=== PATIENT | female | born 1960 | race Caucasian/White ===

== ENCOUNTER 2016-10-21 11:57 | Emergency (ER) | payer OTHER, MEDICARE ==
[~2016-10-21] VITALS: Ht 160 cm; Wt 113.4 kg
[~2016-10-21 11:57] MED LIST: ATORVASTATIN CA40 MG PO; BUPROPION HYDR300 M1 PO; COLACE100 MG PO; COUMADIN 5 MG TA5 MG PO; DEPAKOTE ER500 MG PO; DIVALPROEX SOD500 MG PO; EXFORGE 10 MG-31 TAB PO; EXFORGE HCT 101 TA2 PO; GLIMEPIRIDE4 MG PO; JANUVIA 100MG100 MG PO; K-DUR 20MEQ TA20 MEQ PO; LEVOTHROID0.075 MG PO; MASON NATURAL325 MG PO; MOBIC15 MG PO; NATURAL IRON65 MG PO; PERCOCET 325 MG1 TA2 PO; PERCOCET MONOGRA5 MG PO; POTASSIUM CHLO20 ME3 PO; RANITIDINE HYD300 MG PO; TRAZODONE HCL100 MG PO; TYLENOL #31 TAB PO; TYLENOL500 MG PO; VICODIN5-300 PO; WELLBUTRIN 100100 MG PO; ZOFRAN ODT4 MG SL
--- NOTE | 2016-10-21 12:39 | ED UPPER/LOWER EXTREMITY COMPL ---
History of Present Illness General Chief Complaint: Foot or Ankle Injury Stated Complaint: R FT INJURY Source: patient Exam Limitations: no limitations Vital Signs & Intake/Output Vital Signs & Intake/Output Vital Signs Date Time Temp Pulse Resp B/P B/P Pulse O2 O2 Flow FiO2 Mean Ox Delivery Rate 10/21 1420 98.3 89 18 132/60 96 Room Air 10/21 1203 98.2 97 15 145/84 97 Room Air Room Air Allergies Coded Allergies: Penicillins (Severe, RASH 10/21/16) STATINS (Intermediate, HIVES 10/21/16) TUTU Inhibitors (Intermediate, DRY COUGH 10/21/16) Reconcile Medications AMLODIPINE/VALSARTAN/HCTHIAZID (Exforge Hct 10-320-25 MG Tab) 1 TAB TAB 1 TAB PO DAILY BP (Reported) Atorvastatin Calcium (Lipitor) 40 MG TABLET 40 MG PO DAILY CHOLESTEROL ( Reported) Bupropion Hydrochloride (Bupropion Hydrochloride XL) 300 MG T24 300 MG PO QPM MENTAL HEALTH (Reported) Divalproex Sodium (Depakote ER) [address] 3 TAB PO QPM MENTAL HEALTH ( Reported) Docusate Sodium (Colace) 100 MG SGL 1 CAP PO BID PRN CONSTIPATION Ferrous Sulfate 325 MG TAB 1 TAB PO DAILY SUPLEMENT (Reported) Glimepiride 4 MG TABLET 4 MG PO DAILY BLOOD SUGAR (Reported) Levothyroxine Sodium (Levothroid) 75 MCG TABLET 75 MCG PO DAILY HYPOTHYROIDISM (Reported) OXYCODONE HCL/ACETAMINOPHEN (Percocet 5-325 MG Tablet) 325 MG/5 MG TAB 1-2 TAB PO Q4-6 PRN PRN PAIN Potassium Chloride 20 MEQ PACKET 1 PAC PO QDAY LOW POTASSIUM RANITIDINE HCL (Ranitidine Hydrochloride) 300 MG TABLET 300 MG PO QPM ACID REFLUX (Reported) Sitagliptin Phosphate (Januvia) 100 MG TABLET 100 MG PO DAILY DIABETES ( Reported) TRAZODONE HCL (Trazodone HCl) 100 MG TABLET 200 MG PO QPM SLEEP/MENTAL HEALTH (Reported) Tylenol With Codeine (Tylenol With Codeine #3 Tablet) 300 MG-30 MG TABLET 1 TAB PO BIDP PRN PAIN Warfarin Sodium (Coumadin) 5 MG TAB 1 TAB PO DAILY BLOOD THINNER DOSE FOR INR 2-3 Triage Note: PT TO ED FOR R FOOT PAIN S/P TWISTING IT ON SATURDAY AND HAS NOT HAD ANY IMPROVEMENT TO PAIN. +CMS, PER PT, CANNOT BEAR WEIGHT. Triage Nurses Notes Reviewed? yes Onset: Abrupt Duration: constant Timing: recent history Severity: severe Severity Numbers: 7 HPI: Patient is a 56-year-old female who presents emergency with concerns of twisting her right foot on Saturday 5 days ago and since patient has been complaining of swelling tenderness and pain upon weightbearing activities. Denies any ankle or knee pain. Patient was able to ambulate to a private vehicle to present to emergency room. (MACRINA GARSIA) Past History Travel History Traveled to [place] past 21 day No Medical History Any Pertinent Medical History? 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 No (MACRINA GARSIA) Review of Systems Review of Systems Constitutional: Reports: no symptoms. EENTM: Reports: no symptoms. Respiratory: Reports: no symptoms. Cardiovascular: Reports: no symptoms. Gastrointestinal/Abdominal: Reports: no symptoms. Genitourinary: Reports: no symptoms. Musculoskeletal: Reports: see HPI, joint pain. Skin: Reports: no symptoms. Neurological/Psychological: Reports: no symptoms. Hematologic/Endocrine: Reports: no symptoms. Immunological: Reports: no symptoms. All Other Systems: Reviewed and Negative (MACRINA GARSIA) Physical Exam Physical Exam General Appearance: no apparent distress, alert, comfortable Neurologic/Tendon: normal sensation, normal motor functions, normal tendon functions, responds to pain, no evidence tendon injury, no pulse deficit Skin: intact, normal color, warm/dry Comments: Well-developed well-nourished no apparent distress. HEENT: Atraumatic, extraocular motion intact Neck: Supple, no lymphadenopathy Back: Nontender Respiratory: No respiratory distress Extremities: Right knee normal section nontender full active range of motion Right ankle normal section nontender full active range of motion Right foot noted dorsal generalized point tenderness and swelling. Dermatomes intact pedal pulses +2 Neuro: Alert and oriented x3 Psych: Mood affect normal, normal memory normal judgment. (MACRIAN GARSIA) Progress Differential Diagnosis: arterial insufficiency, compartment syndrome, contusion, dislocation, DVT, fracture, gout, septic arthritis, sprain, tendon injury Plan of Care: Orders Procedure Date/time Status Durable Medical Equipment 10/21 1906 Active Patient does have point tenderness upon the dorsal aspect of patient's right foot in which there is a concern of an avulsion fracture to the foot in which patient was placed in an orthopedic boot Patient was noted to ambulate in the emergency room with a walker noted to have normal steady gait Patient does have an position at her home a walker which I strongly advised patient to begin using and follow up with orthopedic doctor tomorrow. (MACRINA GARSIA) Diagnostic Imaging: Viewed by Me: Radiology Read. Radiology Impression: SEE COMMENTS Comments: PATIENT: JARRED PATEL PRESENT AGE: 56 PATIENT ACCOUNT NO: [id number] : 58 LOCATION: [facility] ORDERING PHYSICIAN: MACRINA DESAI SERVICE DATE: 10/21/16 EXAM TYPE: RAD - XRY-ANKLE 3 OR MORE VIEWS R; XRY-FOOT COMPLETE, R EXAMINATION: XR RIGHT FOOT XR RIGHT ANKLE CLINICAL INFORMATION: Right foot pain. COMPARISON: None TECHNIQUE: 3 views of the right ankle and 3 views of the right foot were obtained. FINDINGS: On the lateral projection of the foot, there is bony prominence along the dorsal aspect of the proximal metatarsals, which may represent hypertrophic change versus a subtle avulsion fracture. Soft tissue swelling about the forefoot. No other findings concerning for fracture or dislocation. The ankle mortise is congruent. No widening of the tibiofibular syndesmosis. Slight distal Achilles enthesopathy. Minimal plantar calcaneal spurring. Chronic hypertrophic changes along the base of the fifth metatarsal. Small os navicularis. Bipartite tibial sesamoid adjacent to the first metatarsal head. Mild degenerative changes at the first MTP joint. IMPRESSION: 1. Hypertrophic changes versus subtle avulsion fracture along the dorsal aspect of the midfoot at the level of the proximal metatarsals, seen only on one view. There is forefoot soft tissue swelling. 2. No other findings concerning for acute fracture in the ankle or foot. 3. Nonacute findings as described above. DICTATED BY: FREDRICK CHRISTINE MD DATE/TIME DICTATED:10/21/16 1408 (MACRINA GARSIA) Departure Departure Disposition: HOME OR SELF CARE Condition: Stable Clinical Impression Primary Impression: Right foot pain Secondary Impressions: Foot fracture, right Referrals: BLAKE LI,MARC Thurston (PCP/Family) IRA BOB MD Additional Instructions: As discussed begin to elevate foot for swelling. Begin to use the walking boot for support and stability. Begin using your already in possession walker for weightbearing as tolerated. If symptoms worsen return to emergency room. Tomorrow please follow up and establish orthopedic Dmitri Valverde MD for further evaluation treatment. Begin the prescription Tylenol with Codeine for pain. Prescription is waiting a [facility] [place] Departure Forms: Customer Survey General Discharge Information Prescriptions: Current Visit Scripts Tylenol With Codeine (Tylenol With Codeine #3 Tablet) 1 TAB PO BIDP PRN PAIN #10 TAB (MACRINA GARSIA) PA/FOREST FIRE FIGHTER Co-Sign Statement Statement: ED Attending supervision documentation- I saw and evaluated the patient. I have also reviewed all the pertinent lab results and diagnostic results. I agree with the findings and the plan of care as documented in the PA's/FOREST FIRE FIGHTER's documentation. x I have reviewed the ED Record and agree with the PA's/FOREST FIRE FIGHTER's documentation. [] Additions or exceptions (if any) to the PAs/FOREST FIRE FIGHTER's note and plan are summarized below: [] (CARLENE IL,NANCY)
[2016-10-21 14:20] VITALS: BP 132/60
--- NOTE | 2016-10-21 14:31 | RADIOLOGY REPORT ---
EXAMINATION: XR RIGHT FOOT XR RIGHT ANKLE CLINICAL INFORMATION: Right foot pain. COMPARISON: None TECHNIQUE: 3 views of the right ankle and 3 views of the right foot were obtained. FINDINGS: On the lateral projection of the foot, there is bony prominence along the dorsal aspect of the proximal metatarsals, which may represent hypertrophic change versus a subtle avulsion fracture. Soft tissue swelling about the forefoot. No other findings concerning for fracture or dislocation. The ankle mortise is congruent. No widening of the tibiofibular syndesmosis. Slight distal Achilles enthesopathy. Minimal plantar calcaneal spurring. Chronic hypertrophic changes along the base of the fifth metatarsal. Small os navicularis. Bipartite tibial sesamoid adjacent to the first metatarsal head. Mild degenerative changes at the first MTP joint. IMPRESSION: 1. Hypertrophic changes versus subtle avulsion fracture along the dorsal aspect of the midfoot at the level of the proximal metatarsals, seen only on one view. There is forefoot soft tissue swelling. 2. No other findings concerning for acute fracture in the ankle or foot. 3. Nonacute findings as described above.
[2016-10-21] MEDS ORDERED: TYLENOL WITH C1 EACH PO (15:21)
== END 2016-10-21 15:41 ==
LOC: ERH 11:57
DX: S92.311A Displaced fracture of first metatarsal bone, right foot, initial encounter for closed fracture (principal); X58.XXXA Exposure to other specified factors, initial encounter; Y92.9 Unspecified place or not applicable; Y93.9 Activity, unspecified
CPT/HCPCS: 73610-RT; 73630-RT

== ENCOUNTER 2017-09-17 19:01 | Emergency (ER) | payer OTHER, MEDICARE ==
[~2017-09-17 19:01] MED LIST changes: +ANTI-ITCH28 GM TOP; +CIPRO500 M1 PO; +HYDROXYZINE HCL25 M2 PO; +PREDNISONE20 M1 PO; +TRAZODONE HCL100 M1 PO; +TRAZODONE HCL50 M1 PO; +TYLENOL EXTRA500 M2 PO; +TYLENOL WITH C1 EACH PO
--- NOTE | 2017-09-17 19:51 | ED GI/GU/ABDOMINAL COMPLAINT ---
History of Present Illness General Chief Complaint: Female Urogenital Problems Stated Complaint: ?UTI Source: patient Exam Limitations: no limitations Vital Signs & Intake/Output Vital Signs & Intake/Output Vital Signs Date Time Temp Pulse Resp B/P B/P Pulse O2 O2 Flow FiO2 Mean Ox Delivery Rate 09/18 2015 98.1 95 16 138/90 100 Room Air 09/17 1910 98.4 100 20 123/82 98 Allergies Coded Allergies: Penicillins (Severe, RASH 10/21/16) STATINS (Intermediate, HIVES 10/21/16) metformin (VAGINAL ITCHING 02/16/17) TUTU Inhibitors (Intermediate, DRY COUGH 10/21/16) Reconcile Medications Acetaminophen (Tylenol Extra Strength) 500 MG TABLET 2 TAB PO BID PRN PAIN ( Reported) Fluconazole (Diflucan) 150 MG TABLET 1 TAB PO ONCE yeast ifnection take in 3 days Hydrocortisone (Anti-Itch) 1 % CREAM..G. 1 RUDDY TOP BID itchy rash Hydroxyzine Hydrochloride (Atarax) 50 MG TAB 1 TAB PO TID ITCHING Hydroxyzine Hydrochloride (Atarax) 25 MG TAB 1-2 TAB PO TID PRN itchy rash Nitrofurantoin Monohyd/M-Cryst (Macrobid 100 MG Capsule) 100 MG CAPSULE 1 CAP PO BID uti with food Phenazopyridine HCl (Pyridium) 100 MG TABLET 1 TAB PO TID burnings Prednisone 20 MG TABLET 1 TAB PO BID eczema Trazodone HCl 50 MG TABLET 1 TAB PO QPM INSOMNIA Trazodone HCl 100 MG TABLET 1 TAB PO QPM PRN insomnia Triage Note: PER PT WHITE THICK CHEESY VAGINAL DISCHARGE. PT MADE DR HARE FOR SATURDAY BUT CANT WAIT Triage Nurses Notes Reviewed? yes ? N Is pt currently ? No Onset: Abrupt Duration: day(s):, constant Timing: recent history No Modifying Factors: none HPI: 49-year-old female comes into the emergency room for further evaluation of vaginal itching and some increased frequency and burning with urination. Symptoms when going over the past couple days. She has a previous yeast infections she thinks. Not sexually active. Denies any abdominal pain and fever. (Delfino Mc) Past History Travel History Traveled to [place] past 21 day No Medical History Any Pertinent Medical History? 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 No (Delfino Mc) Review of Systems Review of Systems Constitutional: Reports: no symptoms. EENTM: Reports: no symptoms. Respiratory: Reports: no symptoms. Cardiovascular: Reports: no symptoms. GI: Reports: no symptoms. Genitourinary: Reports: see HPI. Musculoskeletal: Reports: no symptoms. Skin: Reports: no symptoms. Neurological/Psychological: Reports: no symptoms. Hematologic/Endocrine: Reports: no symptoms. Immunologic/Allergic: Reports: no symptoms. All Other Systems: Reviewed and Negative (Delfino Mc) Physical Exam Physical Exam General Appearance: well developed/nourished, alert, awake, obese Head: atraumatic, normal appearance Eyes: Bilateral: normal appearance. Ears, Nose, Throat, Mouth: hearing grossly normal, moist mucous membrane Neck: normal inspection Respiratory: no respiratory distress Gastrointestinal: soft, non-tender Back: normal inspection Extremities: normal range of motion Neurologic/Psych: awake, alert, oriented x 3, normal gait Skin: intact, normal color Core Measures ACS in differential dx? No Sepsis Present: No Sepsis Focused Exam Completed? No (Delfino Mc) Progress Differential Diagnosis: UTI/pyelo, YEAST INFECTION Plan of Care: Orders Procedure Date/time Status Add-on Test (ER Only) 09/17 1952 Active CULTURE,URINE 09/18 1919 Active URINALYSIS 09/17 1908 Complete Laboratory Tests 09/17/171919: Urinalysis LIGHT H, Urine Color YEL, Urine Clarity HAZY H, Urine pH 5.5, Ur Specific [place] 1.010, Urine Protein TRACE H, Urine Ketones NEG, Urine Nitrite NEG, Urine Bilirubin NEG, Urine Urobilinogen 0.2, Ur Leukocyte Esterase SMALL H , Ur Microscopic SEDIMENT EXAMINED, Urine RBC 3-5, Urine WBC 10-15 H, Ur Epithelial Cells MANY H, Urine Bacteria MOD H, Urine Mucus FEW, Micro UA Comment BUDDING YEAST H, Urine Hemoglobin MOD H, Urine Glucose >=1000 H Microbiology 09/18 1919 URINE ROUT: Urine Culture - RECD Initial ED EKG: none Comments: 09/17/2017 8:06:11 PM Patient clinically looks well. Patient is no apparent distress. Patient is nontoxic appearing. Symptoms are likely most consistent with these infection versus UTI. Patient treated with fluconazole and started on oral antibiotic. 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 Return if further concerns. She clinically looks well. (Zev DESAI,Delfino) Departure Departure Disposition: HOME OR SELF CARE Condition: Stable Clinical Impression Primary Impression: UTI (urinary tract infection) Secondary Impressions: Yeast infection Referrals: Mohsen LI,Idalia Thurston (PCP/Family) Additional Instructions: Take Macrobid and fluconazole prescribed. Follow-up with wire rope fabrication supervisor and primary care doctor. Return if any other concerns worsening symptoms. Please go over all results of today's visit with your primary care doctor. Contact your primary care doctor to let them know you were here in the emergency room. There may be nonspecific findings which may not be related to your visit today here in the emergency room but may require further evaluation and chronic monitoring by your primary care doctor. If you had a laceration today the chance of foreign body always remains. You should follow-up with your primary care doctor for recheck in 3-5 days for a wound check. If you had an x-ray done there is a chance that a fracture could have been missed on initial read and you should follow-up with your primary care doctor for repeat x-rays if symptoms persist. If your blood pressure was elevated here in the emergency room please have rechecked by [facility] primary care doctor within the next 48. If you were prescribed a narcotic here in the emergency room or any type of controlled substances you're not allowed to drive while taking this medication or operate any type of heavy machinery. Narcotics can make you feel lightheaded dizziness nausea and can cause constipation. You may need to brick picker a stool softener. Thank you for choosing [facility] emergency room. Please return to the emergency room immediately if you have any other concerns worsening of symptoms. Departure Forms: Customer Survey General Discharge Information Prescriptions: Current Visit Scripts Fluconazole (Diflucan) 1 TAB PO ONCE #1 TAB take in 3 days Nitrofurantoin Monohyd/M-Cryst (Macrobid 100 MG Capsule) 1 CAP PO BID #14 CAP with food Phenazopyridine HCl (Pyridium) 1 TAB PO TID #6 TAB Hydroxyzine Hydrochloride (Atarax) 1 TAB PO TID #30 TAB (Delfino Mc) PA/WIRE RIGGER Co-Sign Statement Statement: ED Attending supervision documentation- I saw and evaluated the patient. I have also reviewed all the pertinent lab results and diagnostic results. I agree with the findings and the plan of care as documented in the PA's/WIRE RIGGER's documentation. x I have reviewed the ED Record and agree with the PA's/WIRE RIGGER's documentation. [] Additions or exceptions (if any) to the PAs/WIRE RIGGER's note and plan are summarized below: [] (Thomas LI,Andre)
[2017-09-17] MEDS ORDERED: HYDROXYZINE HCL50 M1 PO (19:53)
[2017-09-17] MEDS ORDERED: DIFLUCAN150 M1 PO (19:53)
[2017-09-17] MEDS ORDERED: PYRIDIUM100 M1 PO (19:53)
[2017-09-17] MEDS ORDERED: MACROBID 100 M100 MG PO (19:53)
[2017-09-17 20:16] VITALS: BP 138/90
[2017-10-01] MEDS ORDERED: GLIMEPIRIDE2 MG PO (12:39)
[2017-10-01] MEDS ORDERED: GLUCOPHAGE XR500 M1 PO (12:39)
[2017-10-01] MEDS ORDERED: PIOGLITAZONE HC30 M1 PO (12:39)
[2017-10-01] MEDS ORDERED: JANUVIA100 M1 PO (12:39)
[2017-12-22] MEDS ORDERED: LEVSIN-SL0.125 MG SL (02:21)
[2017-12-22] MEDS ORDERED: ZOFRAN ODT4 M1 SL (02:21)
== END 2017-09-17 20:16 ==
LOC: ERH 19:01
DX: N39.0 Urinary tract infection, site not specified (principal); B37.9 Candidiasis, unspecified
CPT/HCPCS: 81001; 87086

== ENCOUNTER 2017-09-22 12:16 | Inpatient (IN) | payer OTHER, MEDICARE ==
[~2017-09-22] VITALS: Ht 160 cm; Wt 113.9 kg
[~2017-09-22 12:16] MED LIST changes: +DIFLUCAN150 M1 PO; +HYDROXYZINE HCL50 M1 PO; +MACROBID 100 M100 MG PO; +PYRIDIUM100 M1 PO
--- NOTE | 2017-09-22 13:22 | ED AMS/SEIZURE/WEAK/DIZZY ---
History of Present Illness General Chief Complaint: Altered Mental Status Stated Complaint: BIBA WITH AMS Source: patient, old records, EMS Exam Limitations: no limitations Vital Signs & Intake/Output Vital Signs & Intake/Output Vital Signs Date Time Temp Pulse Resp B/P B/P Pulse O2 O2 Flow FiO2 Mean Ox Delivery Rate 09/25 1419 98.2 105 17 143/74 97 Room Air 09/25 0554 98.1 94 20 148/78 94 09/24 2214 99.0 100 18 146/78 95 Room Air ED Intake and Output 09/25 0000 09/24 1200 Intake Total 2200 370 Output Total Balance 2200 370 Intake, IV 250 Intake, Oral 2200 120 Patient 251 lb Weight Allergies Coded Allergies: Penicillins (Severe, RASH 10/21/16) STATINS (Intermediate, HIVES 10/21/16) metformin (VAGINAL ITCHING 02/16/17) TUTU Inhibitors (Intermediate, DRY COUGH 10/21/16) Triage Note: PT BACILIO FROM [facility] C/C ?AMS PER FRIENDS. PT STATES SHE HAS BEEN OFF HER DAILY MEDS (PSYCH AND DM) X APPROX 1 MONTH. REPORTS RESTARTED MEDICATION WITHIN THE LAST FEW DAYS. FSG GLUCOSE >500 ON ARRIVAL. PT AOX3. ABLE TO REPORT WEIGHT OBTAINED AND PCP ON SATURDAY. Triage Nurses Notes Reviewed? yes Onset: Gradual Duration: hour(s): Timing: recent history Injury Environment: [facility] Severity: moderate HPI: 57YO female with hx of DM, HTN, bipolar disorder BACILIO from [facility] for confusion. Patient states that she felt confused and other people were worried about her "personality" and they called for an ambulance. Patient reports elevated blood sugar today, >500. She normally does not check her blood sugar. Patient states that she was out of her blood pressure and psychiatric medications for about one month, she states she could not afford her medication. Patient just restarted these medications about one week ago. Patient reports history of recent UTI and yeast infection for which she was treated for. She denies abdominal pain, nausea , vomiting, chest pain, dyspnea, (Petty DESAI,Chloe Quintero) Reconcile Medications Acetaminophen (Tylenol Extra Strength) 500 MG TABLET 2 TAB PO BID PRN PAIN ( Reported) Divalproex Sodium (Depakote ER) 500 MG TAB.ER.24H 3 TAB PO QPM ??Seizure ( Reported) Hydrocortisone (Anti-Itch) 1 % CREAM..G. 1 RUDDY TOP BID itchy rash Hydroxyzine Hydrochloride (Atarax) 50 MG TAB 1 TAB PO TID ITCHING Levothyroxine Sodium 75 MCG TABLET 1 TAB PO DAILY HypoTSH (Reported) Nitrofurantoin Monohyd/M-Cryst (Macrobid 100 MG Capsule) 100 MG CAPSULE 1 CAP PO BID uti with food Phenazopyridine HCl (Pyridium) 100 MG TABLET 1 TAB PO TID burnings Pioglitazone HCl 30 MG TABLET 1 TAB PO DAILY DM (Reported) Trazodone HCl 100 MG TABLET 2 TAB PO QPM PRN insomnia (Thomas LI,Andre) Past History Travel History Traveled to [place] past 21 day No Medical History Any Pertinent Medical History? 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 No (Chloe Boo) Review of Systems Review of Systems Constitutional: Reports: see HPI. EENTM: Reports: no symptoms. Respiratory: Reports: no symptoms. Cardiovascular: Reports: no symptoms. GI: Reports: no symptoms. Genitourinary: Reports: no symptoms. Musculoskeletal: Reports: no symptoms. Skin: Reports: no symptoms. Neurological/Psychological: Reports: see HPI. Hematologic/Endocrine: Reports: see HPI. Immunologic/Allergic: Reports: no symptoms. All Other Systems: Reviewed and Negative (Chloe Boo) Physical Exam Physical Exam General Appearance: well developed/nourished, no apparent distress, alert, awake , obese Head: atraumatic, normal appearance Eyes: Bilateral: normal appearance, PERRL, EOMI. 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 No CVA/TIA Diagnosis No Sepsis Present: No Sepsis Focused Exam Completed? No (Petty DESAI,Chloe Quintero) Progress Differential Diagnosis: arrythmia, alcohol intoxication, benign positional vertigo, CVA/stroke, dehydration, electrolyte imbalance, intracranial mass/tumor , sepsis, UTI/pyelo Plan of Care: Orders Procedure Date/time Status EKG 09/25 599 Active Therapeutic Exercise 09/25 UNK Complete Gait Training 09/25 UNK Complete Current Medications Sig/Domo Start time Last Medication Dose Stop Time Status Admin Metformin HCl 500 MG 1700 09/25 1700 AC 09/25 (Glucophage) 1647 Insulin Detemir 18 UNITS BID 09/25 09 AC (Levemir) Sitagliptin Phosphate 100 MG DAILY 09/25 0900 AC 09/25 (JANUVIA) 0800 Divalproex Sodium 1,250 MG QPM 09/24 2100 AC 09/24 (Depakote ER) 2056 Hydrocortisone 1 RUDDY BID 09/23 0900 AC 09/25 0801 Hydroxyzine HCl 50 MG TID 09/23 0900 AC 09/25 (Atarax) 1303 Insulin Aspart 0 TIDAC/HS 09/23 0800 AC 09/25 (NovoLOG) 1647 Levothyroxine Sodium 0.075 MG DAILY AC 09/23 0700 AC 09/25 (Synthroid) 0505 Trazodone HCl 200 MG QPM PRN 09/23 0630 AC (Desyrel) Vitamin A/Vitamin D 1 RUDDY BID 09/22 2315 AC 09/25 (A+D Original) 0801 Trimethobenzamide HCl 200 MG 4 TIMES/DAY PRN 09/22 2230 AC (Tigan) Heparin Sodium 5,000 UNIT Q8 09/22 2200 AC 09/25 (Porcine) 1303 Acetaminophen 325 MG Q6 PRN 09/22 2014 AC 09/24 (Tylenol) 1523 Laboratory Tests 09/25/17 0630: Anion Gap 11, Estimated GFR > 60, BUN/Creatinine Ratio 11.4, Valproic Acid 77.3 Patient hyperglycemic, IV fluids and 10 units IV insulin initiated. Blood Work shows elevated lactic acid 2.4. Patient currently on third liter IV fluids. Will obtain head CT scan given patient's bizarre affect, she does not appear delirious, alert and oriented 3 however does have affect, possibly related to her blood sugar versus bipolar history. Repeat finger stick shows persistent hyperglycemia, second dose 10 units insulin given. Blood sugar is improving however repeat lactic acid shows increasing lactic acidosis. These findings were discussed with Dr. Guzman, patient requires admission given increasing lactic acid in setting of hyperglycemia. Spoke with Dr. Alexis - he agrees with plan for admission. He states patient will likely require insulin regiment. He recommends repeat labs at this time. general medicine admission reasonable given patient's vital signs. Spoke with Dr. Goncalves regarding general medicine admission. Diagnostic Imaging: Viewed by Me: CT Scan. Discussed w/RAD: CT Scan. Radiology Impression: PATIENT: JARRED PATEL PRESENT AGE: 57 PATIENT ACCOUNT NO: [id number] : 58 LOCATION: [facility] ORDERING PHYSICIAN: Chloe DESAI SERVICE DATE: 09/22/179222 EXAM TYPE: CAT - CT HEAD WO IV CONTRAST EXAMINATION: CT HEAD WITHOUT CONTRAST CLINICAL INFORMATION: Acute mental status changes. Rule out intracranial hemorrhage. COMPARISON: CT scan of the head dated 02/16/2017. TECHNIQUE: Contiguous axial imaging was performed from the skull base to vertex without intravenous administration of contrast. DLP: 615.62 mGy-cm FINDINGS: There is no evidence of acute intracranial hemorrhage or territorial infarction. No abnormal mass effect or midline shift is seen. Pierre to white matter differentiation is well preserved. No extra-axial fluid collections are identified. The ventricles are normal in size. There is no abnormal attenuation within the brain parenchyma. The osseous structures and soft tissues are normal. The mastoid air cells and visualized portions of the paranasal sinuses are well aerated. IMPRESSION: No acute intracranial pathology. DICTATED BY: Donita Anne MD DATE/TIME DICTATED:09/22/171723 LONG TERM CARE ADMINISTRATOR:SANTOSH DATE/TIME TRANSCRIBED:1723 CONFIDENTIAL, DO NOT COPY WITHOUT APPROPRIATE AUTHORIZATION. < Electronically signed in Other Vendor System> SIGNED BY: Donita Anne MD 09/22/17 5279 Initial ED EKG: SINUS RHYTHM @92BPM, NONSPECIFIC ST CHANGES Prior EKG: unchanged (03/03/16) (Chloe Boo) Departure Departure Disposition: STILL A PATIENT Condition: Stable Clinical Impression Primary Impression: Hyperglycemia Secondary Impressions: Confusion, Lactic acidosis Referrals: Mohsen LI,Idalia Thurston (PCP/Family) Departure Forms: Customer Survey General Discharge Information Admission Note Spoke With: Rody Mari MD Documentation of Exam: Documentation of any treatments & extenuating circumstances including Concerns Regarding Discharge (functional status, medication knowledge or non-compliance, living conditions, etc.) that warrant an admission rather than observation: [ Hypoglycemia, lactic acidosis, confusion, requiring IV fluids, IV insulin, endocrinology consult, repeat labs, premature discharge medically unsafe] (Chloe Boo) PA/DELIVERY ROUTE DRIVER Co-Sign Statement Statement: ED Attending supervision documentation- [x] I saw and evaluated the patient. I have also reviewed all the pertinent lab results and diagnostic results. I agree with the findings and the plan of care as documented in the PA's/DELIVERY ROUTE DRIVER's documentation. 09/22/17, 20:05.... pt with glucose in 600's, requiring insulin, iv fluids, worsening lactic acidosis, presently patient is comfortable, stable. [] I have reviewed the ED Record and agree with the PA's/DELIVERY ROUTE DRIVER's documentation. [] Additions or exceptions (if any) to the PAs/DELIVERY ROUTE DRIVER's note and plan are summarized below: [] (Lauren LI,Jatin Goodrich) Departure Prescriptions: Current Visit Scripts Trazodone HCl 2 TAB PO QPM PRN insomnia #30 TAB PA/DELIVERY ROUTE DRIVER Co-Sign Statement Statement: ED Attending supervision documentation- x I saw and evaluated the patient. I have also reviewed all the pertinent lab results and diagnostic results. I agree with the findings and the plan of care as documented in the PA's/DELIVERY ROUTE DRIVER's documentation. Hyperglycemia, confusion, lactic acidosis [] I have reviewed the ED Record and agree with the PA's/DELIVERY ROUTE DRIVER's documentation. [] Additions or exceptions (if any) to the PAs/DELIVERY ROUTE DRIVER's note and plan are summarized below: [] (Thomas LI,Andre) Critical Care Note Critical Care Note Critical Care Time: 30-74 min (Chloe Boo) (Jatin Aguilar MD) Critical Care Note Critical Care Note Critical Care Time: 30-74 min (Chloe Boo)
[2017-09-22 13:50] LABS: ABSOLUTE BASOPHIL COUNT 0 /CUMM (0.0-0.2); ABSOLUTE EOSINOPHIL COUNT 0.2 /CUMM (0.0-0.7); ABSOLUTE GRANULOCYTE CT 4.1 /CUMM (1.4-6.5); ABSOLUTE LYMPH COUNT 0.7 /CUMM (1.2-3.4); ABSOLUTE MONOCYTE COUNT 0.6 /CUMM (0.10-0.60); BASOPHIL % 0.5 % (0.0-2.0); EOSINOPHIL % 3.2 % (0-5); GRANULOCYTE % 73.8 % (42.2-75.2); HEMATOCRIT 42.8 % (37-47); MEAN CORPUSCULAR HGB 28.4 PG (27.0-31.0); MEAN CORPUSCULAR HGB CONC 32.9 G/DL (33.0-37.0); MEAN CORPUSCULAR VOLUME 86.5 FL (81.0-99.0); MEAN PLATELET VOLUME 10.3 FL (7.4-10.4); PLATELET COUNT 183 /CUMM (130-400); RBC DISTRIBUTION WIDTH 15.2 % (11.5-14.5); RED BLOOD CELL CT 4.95 /CUMM (4.20-5.40); WHITE BLOOD CELL COUNT 5.5 /CUMM (4.8-10.8)
--- NOTE | 2017-09-22 17:33 | CT SCAN REPORT ---
EXAMINATION: CT HEAD WITHOUT CONTRAST CLINICAL INFORMATION: Acute mental status changes. Rule out intracranial hemorrhage. COMPARISON: CT scan of the head dated 02/16/2017. TECHNIQUE: Contiguous axial imaging was performed from the skull base to vertex without intravenous administration of contrast. DLP: 615.62 mGy-cm FINDINGS: There is no evidence of acute intracranial hemorrhage or territorial infarction. No abnormal mass effect or midline shift is seen. Pierre to white matter differentiation is well preserved. No extra-axial fluid collections are identified. The ventricles are normal in size. There is no abnormal attenuation within the brain parenchyma. The osseous structures and soft tissues are normal. The mastoid air cells and visualized portions of the paranasal sinuses are well aerated. IMPRESSION: No acute intracranial pathology.
--- NOTE | 2017-09-22 20:14 | History & Physical ---
Ana Sutton Andrey Shamir 09/22/172007: General Information and HPI MD Statement: I have seen and personally examined JARRED PATEL and documented this H&P. The patient is a 57 year old F who presented with a patient stated chief complaint of [AMS]. Source of Information: patient, old records Exam Limitations: confusion History of Present Illness: Ms. Patel is a 57yo F w. PMH of DM, HTN, bipolar disorder, who was [facility] that she was not herself. Patient stated that she was confused and people surrounding her were worried so they called for ambulance. During our clinical action ER, patient appeared to be in mild distress and does not want to talk much about medical history or what happened today. SHe only endorsed that she was out of all her meds for a while. Son was contacted over the phone and said patient went out of all meds for about 2 months and recently got back to taking meds, including Pioglitazone 30mg daily. Patient was at baseline ambulating with a cane, and mostly independent on ADLs and IADLs. Patient sometimes could not make to the commode to pee and may pee on floor, that recently son found that the floor became increasingly sticky to clean after patient's urinary incontinence. Son stated patient became increasingly "not herself" and "hard to talk to" in the last week after restarting all her meds. Son denied any recent sick contact/fever/chest pain/ abdominal pain/nausea/vomiting/constipation. Patient's diabetes is managed by her PCP Idalia Connolly who the patient regularly follows up with. No previous episodes of DKA. Patient has bipolar disorder for which she follows up with care and is maintained on Depakote. Allergies/Medications Allergies: Coded Allergies: Penicillins (Severe, RASH 10/21/16) STATINS (Intermediate, HIVES 10/21/16) metformin (VAGINAL ITCHING 02/16/17) TUTU Inhibitors (Intermediate, DRY COUGH 10/21/16) Home Med list Acetaminophen (Tylenol Extra Strength) 500 MG TABLET 2 TAB PO BID PRN PAIN ( Reported) Divalproex Sodium (Depakote ER) 500 MG TAB.ER.24H 3 TAB PO QPM ??Seizure ( Reported) Hydrocortisone (Anti-Itch) 1 % CREAM..G. 1 RUDDY TOP BID itchy rash Hydroxyzine Hydrochloride (Atarax) 50 MG TAB 1 TAB PO TID ITCHING Levothyroxine Sodium 75 MCG TABLET 1 TAB PO DAILY HypoTSH (Reported) Nitrofurantoin Monohyd/M-Cryst (Macrobid 100 MG Capsule) 100 MG CAPSULE 1 CAP PO BID uti with food Phenazopyridine HCl (Pyridium) 100 MG TABLET 1 TAB PO TID burnings Pioglitazone HCl 30 MG TABLET 1 TAB PO DAILY DM (Reported) Trazodone HCl 100 MG TABLET 2 TAB PO QPM PRN insomnia Past History Travel History Traveled to [place] past 21 day No Medical History Neurological: NONE EENT: NONE Cardiovascular: hypertension Respiratory: NONE Gastrointestinal: NONE Hepatic: NONE Renal: NONE Musculoskeletal: osteoarthritis Psychiatric: bipolar disease Endocrine: NIDDM Blood Disorders: NONE Cancer(s): NONE ACUTE DIALYSIS NURSE/Reproductive: NONE History of MRSA: No History of VRE: No History of CDIFF: No Surgical History Surgical History: KNEE REPLACEMENT Past Family/Social History Psychosocial History Services at Home: None Smoking Status: Never Smoked ETOH Use: occasional use Illicit Drug Use: denies illicit drug use Functional Ability ADLs Independent: dressing, eating, toileting, bathing. Ambulation: cane IADLs Independent: shopping, housework, finances, food prep, telephone, transportation , medication admin. Review of Systems Review of Systems Constitutional: Reports: see HPI. Exam & Diagnostic Data Last 24 Hrs of Vital Signs/I&O Vital Signs Date Time Temp Pulse Resp B/P B/P Pulse O2 O2 Flow FiO2 Mean Ox Delivery Rate 09/22 1930 95.8 96 18 151/65 97 Room Air 09/22 1729 95.7 88 18 126/58 100 Room Air 09/22 1441 97.8 100 18 140/67 98 05/06 1220 96.4 103 18 139/63 99 Room Air Intake & Output 09/22 1600 /06 0800 05/06 0000 Intake Total 1000 Output Total Balance 1000 Intake, IV 1000 Patient 110.677 kg Weight Weight Reported by Patient Measurement Method Physical Exam General Appearance Alert, Cooperative, Mild Distress, sad from needle sticks, confused, answers questions with significant delay HEENT Atraumatic, PERRLA, multiple small areas of redness over the mandaen Neck Supple Cardiovascular Regular Rate, Normal S1, Normal S2 Lungs diminished breath sounds bilaterally due to body weight Abdomen Normal Bowel Sounds, distended Extremities Normal Pulses, trace edema, surger scar on right knee. Multiple areas of redness/excoriations Reproductive (FEMALE) Curdy white foul smelling discharge with rash/redness in the groins. Suprapubic tenderness Last 24 Hrs of Labs/Raul: Laboratory Tests 09/22/17 1725: Lactic Acid 4.1 H 09/22/17 1516: Urine Opiates Screen < 100, Methadone Screen 49, Barbiturate Screen < 60, Ur Phencyclidine Scrn < 6.00, Amphetamines Screen < 100, U Benzodiazepines Scrn < 85, Urine Cocaine Screen < 50, Urine Cannabis Screen < 5.00, Urinalysis LIGHT H , Urine Color YEL, Urine Clarity CLEAR, Urine pH 6.0, Ur Specific Rochert 1.010, Urine Protein NEG, Urine Ketones TRACE H, Urine Nitrite POS H, Urine Bilirubin NEG, Urine Urobilinogen 0.2, Ur Leukocyte Esterase NEG, Ur Microscopic SEDIMENT EXAMINED, Urine RBC 1-3, Urine WBC 3-5 H, Ur Epithelial Cells FEW, Urine Bacteria FEW H, Urine Hemoglobin NEG, Urine Glucose >=1000 H 09/22/17 1455: pH 7.47 H, pCO2 39, pO2 81, HCO3 28, ABG O2 Sat (Measured) 95.0 L, Carboxyhemoglobin 1.2 L, O2 Concentration % RA, O2 Delivery Method RA, Phlebotomy Draw Site RIGHT RADIAL 09/22/17 1328: Lactic Acid 2.4 H 09/22/17 1328: Anion Gap 20 H, Estimated GFR 39 L, BUN/Creatinine Ratio 15.0, Glucose 661 *H, Calcium 9.9, Magnesium 1.7, Total Bilirubin 0.8, AST 18, ALT 29, Alkaline Phosphatase 95, Troponin I < 0.01, Total Protein 7.5, Albumin 4.3, Globulin 3.2, Albumin/Globulin Ratio 1.3, CBC w Diff NO MAN DIFF REQ, RBC 4.95, MCV 86.5, MCH 28.4, MCHC 32.9 L, RDW 15.2 H, MPV 10.3, Gran % 73.8, Lymphocytes % 12.5 L, Monocytes % 10.0 H, Eosinophils % 3.2, Basophils % 0.5, Absolute Granulocytes 4.1, Absolute Lymphocytes 0.7 L, Absolute Monocytes 0.6, Absolute Eosinophils 0.2, Absolute Basophils 0, Serum Alcohol < 10.0, Acetone Level POSITIVE : UNDILUTED Microbiology 09/22 1936 BLOOD: Blood Culture - ORD 09/22 1936 BLOOD: Blood Culture - ORD Diagnostic Data EKG Results QT elongation aroudn 490s Assessment/Plan Assessment: -CBC: Unremarkable -BMP: NA 132 corrected to 145, creatinine 1.4 elevated from baseline of 0.8, glucose above 600, Anion gap 20 -UA/Microbiology: Trace amount of WBC, positive for nitrite, U tox positive for acetone -Misc: Blood gas 7.4 7/49/81/28, slightly alkalosis -Head CT: No acute -EKG: NSR w/o significant ST-T abnormalities. -Interventions in ER: Novolin 10 units 2, IV normal saline 1 L bolus 3 Problem list & Assessment: Patient presented with severe sepsis secondary to atrial flutter/infection, with elevated anion gap possibly due to lactic acidosis. Patient's hyperglycemia is likely due to medication noncompliance, have been going on for days, however no signs of ketoacidosis was found based on the lab. Her HHS has resulted in systemic reactions including pseudohyponatremia, FAM, and possible sequential hyperkalemia after repletion of fluids/insulin. Likely vaginal candidiasis following physical examination. #Severe sepsis (hypothermia, tachycardia, lactic acidosis, FAM, urinary infection) #Hyperglycemia likely HHS secondary to medication noncompliance/infection #Pseudohyponatremia secondary to HHS #Lactic acidosis #Hypokalemia #Vaginal candidiasis #FAM secondary to dehydration/HHS #PMH of hypertension, hypothyroidism, diabetes, bipolar disorder, mixed hyperlipidemia Hospital Course: - Admit to general medicine floor consult over the phone. limbs in the ER. Continue normal saline and KCl 1 25 cc/hour DVT prophylaxis Heparin + ALPS Diabetic diet Full Code As Ranked By This Provider Problem List: 1. Hyperglycemia Core Measures/Misc (02/03) Acute Coronary Syndrome ACS Diagnosis: No Congestive Heart Failure Congestive Heart Failure Diagnosis No Cerebrovascular Accident CVA/TIA Diagnosis: No VTE (View Protocol) VTE Risk Factors Age>40 No Mechanical VTE Prophylaxis d/t N/A MechProphylax Ordered No VTE Pharm Prophylaxis d/t NA PharmProphylax ordered Sepsis (View protocol) Sepsis Present: No August Lamas 09/22/17 4247: Resident Review Statement Resident Statement: examined this patient, discussed with management intern Other Findings: Patient is a 49-year-old female with past medical history of type 2 diabetes mellitus, hyperlipidemia, hypothyroidism, obesity, GERD, bipolar disorder who was brought into the ED by EMS for altered mental status from the [facility]. Patient is confused during the interview. Most of the history is obtained from the son over the phone. Son reports that over the past 1-2 months, patient has been very confused, below her baseline, appeared tired and lethargic. It has been very difficult for him to strike a meaningful conversation with her due to her altered mentation. Her apetite has been low and PO intake fluids/solids has been poor. She had been out of all her medications including OHA for the past 2 months due to monetary problems . She just got her medications a few days back. She reports to be taking Januvia, pioglitazone and glipizide for diabetes. She had been complaining of vaginal itching with increased frequency and burning in urination over the past 1 month. She had multiple accidents at home and a urine was very thick and appeared very sticky and difficult to clean. She denied any fevers, chills, shortness of breath, palpitations, nausea, abdominal pain. Does report some loose stools over the past 2 weeks. She was seen in the ER on 09/17 for the same complaints and was discharged on nitrofurantoin, fluconazole, pyridium and hydroxyzine. Son reports that patient had been taking some these medications for the last 4 days. Patient's diabetes is managed by her PCP Idalia Connolly who the patient regularly follows up with. No previous episodes of DKA. Patient has bipolar disorder for which she follows up with care and is maintained on Depakote. Vitals at admission was significant for temperature of 96.4, pulse 103, respiration 18, blood pressure 139/63, saturating 99% on room air. Labs normal white count, sodium 132(corrected 145) , potassium 3.9, bicarbonate 28, anion gap 20, BUN 21, creatinine 1.4(baseline 0.8), glucose 661, serum osmolarity 331, troponin 0.01, triglycerides 840, cholesterol 314, TSH 0.7, free T4 2 0.31 U tox positive for acetone UA nitrate positive, leukocyte esterase negative, trace ketones 3-5 WBCs, glucose>1000 EKG: NSR, Q waves in inferior leads, QTC 490. ABG 7.47/39/81/28 Physical exam General: Awake, alert, confused, answers questions with significant delay HEENT: PERRLA, EOMI, multiple small areas of redness over the mandaen, scant hair Chest: Diminished breath sounds bilaterally CVS: S1 and S2 heard, no murmurs Abdomen: Distended, BS positive Vaginal:Curdy white foul smelling discharge with rash/redness in the groins. Suprapubic tenderness Extremities: Trace pedal edema, a surgery scar on right knee. Multiple areas of redness/excoriations, denuded skin on the extremities. Assessment Severe sepsis(hypothermia, tachycardia, lactic acidosis, FAM, urinary infection) Hyperglycemia likely HHS in the setting of medication noncompliance, infection Pseudohyponatremia in the setting of hyperglycemia Lactic acidosis Hypokalemia Vaginal candidiasis FAM likely prerenal in the setting of dehydration Diabetes mellitus type 2 Bipolar disorder Mixed hyperlipidemia Hypothyroidism Plan * Admit patient to [facility] * Every 2 hours Accu-Cheks * Patient received 3 L of normal saline and 20 units of insulin in the ED. We' ll start patient on normal saline and KCl at 1 25 cc an hour. * Levemir 10 units twice a day * NovoLog mealtime and bedtime sliding scale as per endocrinology recommendations * Lactic acid normalized. AG closed * Obtain blood cultures/urine cultures * Patient has been on Bactrim. Will give 1 dose of Fluconazole * Repeat labs in a.m. * Endocrine consult appreciated * History of bipolar disorder. Psychiatry consult appreciated * Diabetic diet(use Tigan if nauseous, QTC 490) * Due to prophylaxis subcutaneous heparin * Full code [email or web address] 09/23/17 0058: Attending MD Review Statement Attending Statement Attending MD Statement: examined this patient, discuss w/resident/PA/COUNTY LIBRARY DIRECTOR, agreed w/resident/PA/COUNTY LIBRARY DIRECTOR, reviewed EMR data (avail), reviewed images, amended to note Attending Assessment/Plan: CC: Confusion PMH: Hypothyroidism, DM, obesity, mood disorder Patient was brought in ER from [facility] for confusion and altered mental status. Initially in ER patient was not providing appropriate information but when I saw her she mentioned that she went to [facility] this morning and she was not walking right, she was not talking appropriate and her friends noticed that there is something wrong and they called EMS. Patient states that she was feeling poorly and lethargic but cannot pinpoint exact symptoms. On probing questions she endorses urinary frequency, burning and pain while urination and vaginal discharge since last 1 week. She denies any fever or chills at home, recent falls or syncopal episodes. Any neurological weakness, chest pain, abdominal pain, diarrhea, nausea or vomiting. According to her she has been noncompliant with her medications because of financial trouble, she cannot afford co-pay and she skips medications for a month or 2 in between and then take medication again for a month. Recently she did not take medications for last 2 months and was restarted approximately a week back. She states that she takes pioglitazone, glipizide, Januvia for diabetes. She also follows up with behavioral health and takes Depakote and trazodone. Her urinary symptoms started approximately a week back for which she was seen in ER and was prescribed medications. She states that she took a few of these medications but could not complete it as she did not feel good with them. She was getting more confused. History is confirmed from patient's son who mentioned that patient has been confused since last 1 week, talking inappropriately, urinary incontinence and foul-smelling urine. Patient's son lives with her, currently from her . Patient had seen information officer Dr. Chen in the remote past, was never on insulin. Vitals: Temperature 96.4, pulse 103, RR 18, blood pressure 139/63, saturating 99 % on room air. On exam: A O 3, cooperative, no acute distress, neck supple, JVD normal, no lymphadenopathy, mucosa dry, complete neurological examination unremarkable, cranial nerves intact, no dependent edema, multiple skin lesions/scabs on right hand and forehead uninfected CVS: S1-S2, RRR, parasternal systolic murmur 2/6, not radiating to carotid. RS: Clear to auscultate bilaterally. Abdomen: Soft, obese, NT except mild suprapubic tenderness, ND, bowel sounds present, curdy white vaginal discharge inflamed vulva, mild excoriation in inguinal folds without superadded fungal infection. CT head: No acute intracranial pathology. Assessment and plan 57-year-old female with past medical history significant for diabetes and mood disorder noncompliant with that medication presented in ER from [facility] through EMS for confusion and altered mental status. Her blood glucose was more than 500 on fingersticks in ambulance and on BMP it was found to be 661. She appears extremely dehydrated even after 3 L normal saline bolus n in ER. According to ER information patient was confused but currently patient is alert, oriented 3 and provides all the information. She appears to have UTI and vaginal candidiasis probably secondary to uncontrolled diabetes. Patient has been noncompliant with her medications since last 1-2 months, probably blood sugars were running high according to her. She was supposed to be on pioglitazone, Januvia, glipizide which was recently restarted approximately a week back. She was also seen recently in ER on September 17 and was prescribed nitrofurantoin for 7 days and 3 dose of fluconazole. According to her she was not feeling well with this medications so she stopped it. This patient appears to have partially treated UTI. Patient may be having mild HHS given her high blood sugar level, confusion, acetone and urine, dehydration. Urine osmolality was checked was 331. [employer] Worker was called who agreed for general admission. Patient also has pseudohyponatremia and should be carefully watched to avoid acute changes in sodium. Additionally patient has lactic acid of 2.4 on arrival which increased to 4.1 even with hydration, her temperature was 96.4 and had tachycardia although this appears secondary to sepsis secondary to UTI. + HHS + uncontrolled DM : noncompliance + UTI : cystitis + Vaginal Candidiasis + Acute kidney injury + Pseudohyponatremia + History of mood disorder and hypothyroidism - admit to general medicine - Continue aggressive hydration with normal saline at 200 mL/h - Continue Levemir 10 units twice daily according to information officer - Continue short-acting sliding scale insulin according to the recommendation - Watch for hypoglycemia, every 2 hourly Accu-Cheks as patient is insulin elvin - Also closely watch sodium for any acute changes - Check HbA1c, a.m. cortisol, TSH - One dose of vaginal fluconazole 150 mg - Continue Depakote and trazodone and levothyroxine according to her previous doses.
[2017-09-22] MEDS ORDERED: LEVOTHYROXINE75 MCG PO (20:51)
[2017-09-22] MEDS ORDERED: DEPAKOTE ER500 M1 PO (20:55)
[2017-09-22] MEDS ORDERED: PIOGLITAZONE HC30 M1 PO (20:56)
[2017-09-22] MEDS ORDERED: TRAZODONE HCL100 M1 PO (20:58)
[2017-09-22 21:25] LABS: ABSOLUTE BASOPHIL COUNT 0 /CUMM (0.0-0.2); ABSOLUTE EOSINOPHIL COUNT 0.2 /CUMM (0.0-0.7); ABSOLUTE GRANULOCYTE CT 3.2 /CUMM (1.4-6.5); ABSOLUTE LYMPH COUNT 1.1 /CUMM (1.2-3.4); ABSOLUTE MONOCYTE COUNT 0.6 /CUMM (0.10-0.60); BASOPHIL % 0.4 % (0.0-2.0); EOSINOPHIL % 4.3 % (0-5); GRANULOCYTE % 61.8 % (42.2-75.2); MEAN CORPUSCULAR HGB 28.4 PG (27.0-31.0); MEAN CORPUSCULAR HGB CONC 33.1 G/DL (33.0-37.0); MEAN CORPUSCULAR VOLUME 85.8 FL (81.0-99.0); MEAN PLATELET VOLUME 10.2 FL (7.4-10.4); PLATELET COUNT 169 /CUMM (130-400); RBC DISTRIBUTION WIDTH 14.9 % (11.5-14.5); RED BLOOD CELL CT 4.11 /CUMM (4.20-5.40); WHITE BLOOD CELL COUNT 5.1 /CUMM (4.8-10.8)
[2017-09-22 21:36] LABS: HEMATOCRIT 35.2 % (37-47)
[2017-09-22 22:20] VITALS: BP 158/60
--- NOTE | 2017-09-23 01:02 | Admission Certification ---
Admission Certification Certification Statement - As attending physician, I certify that at the time of - admission, based on clinical presentation, severity of - symptoms, need for further diagnostic testing and - therapeutic interventions, and risk of adverse outcomes - without in-hospital treatment, in my clinical assessment, - this patient requires an acute hospital stay for a minimum - of two nights or longer. I have also considered psychsocial - factors such as support system, advanced age, financial - issues, cognitive issues, and failed out-patient treatments, - past re-admission history, safety of patient, and lack of - compliance as applicable. Specific rationale supporting this admission is: hyperglycemia, suspected HHS, FAM,
[2017-09-23 05:48] VITALS: BP 118/78
--- NOTE | 2017-09-23 07:37 | Cons- Endocrinology ---
General Information and HPI Consulting Request Date of Consult: 09/23/17 Requested By: MEDICAL TEAM Reason for Consult: Uncontrolled diabetes Source of Information: patient, old records Exam Limitations: no limitations History of Present Illness: This 57-year-old woman with a known history of diabetes mellitus type 2 associated with obesity, hypothyroidism, and bipolar disorder was brought in by ambulance from [facility] because she was not acting right. Apparently the people around her noted that she was confused and not herself. In speaking with the patient this morning she did have a lot of increased thirst and urination. She has been off all her medications for about at least a month. Her sugar when she presented to the emergency room was 661 with a creatinine of 1.4 BUN 21 sodium 132 bicarb 28 acetone positive undiluted. The patient has been treated overnight with normal saline and was placed on insulin. Her blood sugars have been gradually coming down. Her fingerstick blood sugar this morning is 358. The patient feels much improved this morning. She has been eating and is not vomiting. Allergies/Medications Allergies: Coded Allergies: Penicillins (Severe, RASH 10/21/16) STATINS (Intermediate, HIVES 10/21/16) metformin (VAGINAL ITCHING 02/16/17) TUTU Inhibitors (Intermediate, DRY COUGH 10/21/16) Home Med List: Acetaminophen (Tylenol Extra Strength) 500 MG TABLET 2 TAB PO BID PRN PAIN ( Reported) Divalproex Sodium (Depakote ER) 500 MG TAB.ER.24H 3 TAB PO QPM ??Seizure ( Reported) Hydrocortisone (Anti-Itch) 1 % CREAM..G. 1 RUDDY TOP BID itchy rash Hydroxyzine Hydrochloride (Atarax) 50 MG TAB 1 TAB PO TID ITCHING Levothyroxine Sodium 75 MCG TABLET 1 TAB PO DAILY HypoTSH (Reported) Nitrofurantoin Monohyd/M-Cryst (Macrobid 100 MG Capsule) 100 MG CAPSULE 1 CAP PO BID uti with food Phenazopyridine HCl (Pyridium) 100 MG TABLET 1 TAB PO TID burnings Pioglitazone HCl 30 MG TABLET 1 TAB PO DAILY DM (Reported) Trazodone HCl 100 MG TABLET 2 TAB PO QPM PRN insomnia Review of Systems Review of Systems Constitutional: Denies: chills, fever. Cardiovascular: Denies: chest pain. Respiratory: Denies: cough, short of breath. GI: Denies: abdominal pain, nausea, vomiting. Skin: Reports: no symptoms. Past History Travel History Traveled to [place] past 21 day No Medical History Neurological: NONE EENT: NONE Cardiovascular: hypertension Respiratory: NONE Gastrointestinal: NONE Hepatic: NONE Renal: NONE Musculoskeletal: osteoarthritis Psychiatric: bipolar disease Endocrine: NIDDM Blood Disorders: NONE Cancer(s): NONE ROOF FITTER/Reproductive: NONE Surgical History Surgical History: KNEE REPLACEMENT Psychosocial History Services at Home: None Smoking Status: Never Smoked ETOH Use: occasional use Illicit Drug Use: denies illicit drug use Functional Ability ADLs Independent: dressing, eating, toileting, bathing. Ambulation: cane IADLs Independent: shopping, housework, finances, food prep, telephone, transportation , medication admin. Exam & Diagnostic Data Last 24 Hrs of Vital Signs/I&O Vital Signs Date Time Temp Pulse Resp B/P B/P Pulse O2 O2 Flow FiO2 Mean Ox Delivery Rate 09/23 0448 98.1 96 20 118/78 94 Room Air 05/ 2220 98.3 99 18 158/60 98 Room Air 05/ 2200 98.8 100 18 135/60 99 Room Air 05/ 1930 95.8 96 18 151/65 97 Room Air 05/ 1729 95.7 88 18 126/58 100 Room Air 05/ 1441 97.8 100 18 140/67 98 05/06 1220 96.4 103 18 139/63 99 Room Air Intake & Output 05/07 0800 05/07 0000 05/06 1600 Intake Total 1000 1000 Output Total 700 300 Balance 300 -300 1000 Intake, IV 1000 1000 Output, Urine 700 300 Patient 251 lb 244 lb Weight Weight Bed scale Reported by Patient Measurement Method Vital Signs Date Time Temp Pulse Resp B/P B/P Pulse O2 O2 Flow FiO2 Mean Ox Delivery Rate 09/23 0448 98.1 96 20 118/78 94 Room Air 05/ 2220 98.3 99 18 158/60 98 Room Air 05/06 2200 98.8 100 18 135/60 99 Room Air 05/06 1930 95.8 96 18 151/65 97 Room Air 05/ 1729 95.7 88 18 126/58 100 Room Air 05/06 1441 97.8 100 18 140/67 98 05/06 1220 96.4 103 18 139/63 99 Room Air Intake & Output 05/07 0800 05/07 0000 05/06 1600 Intake Total 1000 1000 Output Total 700 300 Balance 300 -300 1000 Intake, IV 1000 1000 Output, Urine 700 300 Patient 251 lb 244 lb Weight Weight Bed scale Reported by Patient Measurement Method Physical Exam General Appearance: alert, awake, comfortable Head: normal appearance Eyes: Bilateral: normal appearance. Neck: normal inspection Respiratory: normal breath sounds Cardiovascular: regular rate/rhythm Gastrointestinal: normal bowel sounds, soft Extremities: normal inspection Skin: intact Labs/Rual Results: Laboratory Tests 09/23 09/22 09/22 0620 2301 2110 Chemistry Sodium (137 - 145 mmol/L) Pending 137 Potassium (3.5 - 5.1 mmol/L) Pending 3.4 L Chloride (98 - 107 mmol/L) Pending 95 L Carbon Dioxide (22 - 30 mmol/L) Pending 28 Anion Gap (5 - 16) Pending 14 BUN (7 - 17 mg/dL) Pending 20 H Creatinine (0.5 - 1.0 mg/dL) Pending 1.1 H Estimated GFR (>60 ml/min) 51 L BUN/Creatinine Ratio (7 - 25 %) Pending 18.2 Glucose (65 - 99 mg/dL) 440 H Hemoglobin A1c (4.2 - 5.8 %) Pending Lactic Acid (0.7 - 2.1 mmol/L) Cancelled 1.3 Calcium (8.4 - 10.2 mg/dL) 9.0 Total Bilirubin (0.2 - 1.3 mg/dL) 0.6 AST (14 - 36 U/L) 17 ALT (9 - 52 U/L) 21 Alkaline Phosphatase (<127 U/L) 75 Total Protein (6.3 - 8.2 g/dL) 6.2 L Albumin (3.5 - 5.0 g/dL) 3.5 Globulin (1.9 - 4.2 gm/dL) 2.7 Albumin/Globulin Ratio (1.1 - 2.2 %) 1.3 Hematology CBC w Diff Pending NO MAN DIFF REQ WBC (4.8 - 10.8 /CUMM) Pending 5.1 RBC (4.20 - 5.40 /CUMM) Pending 4.11 L Hgb (12.0 - 16.0 G/DL) Pending 11.7 L Hct (37 - 47 %) Pending 35.2 L MCV (81.0 - 99.0 FL) Pending 85.8 MCH (27.0 - 31.0 PG) Pending 28.4 MCHC (33.0 - 37.0 G/DL) Pending 33.1 RDW (11.5 - 14.5 %) Pending 14.9 H Plt Count (130 - 400 /CUMM) Pending 169 MPV (7.4 - 10.4 FL) Pending 10.2 Gran % (42.2 - 75.2 %) 61.8 Lymphocytes % (20.5 - 51.1 %) 21.4 Monocytes % (1.7 - 9.3 %) 12.1 H Eosinophils % (0 - 5 %) 4.3 Basophils % (0.0 - 2.0 %) 0.4 Absolute Granulocytes (1.4 - 6.5 /CUMM) 3.2 Absolute Lymphocytes (1.2 - 3.4 /CUMM) 1.1 L Absolute Monocytes (0.10 - 0.60 /CUMM) 0.6 Absolute Eosinophils (0.0 - 0.7 /CUMM) 0.2 Absolute Basophils (0.0 - 0.2 /CUMM) 0 05/06 05/06 1725 1516 Chemistry Lactic Acid (0.7 - 2.1 mmol/L) 4.1 H Toxicology Urine Opiates Screen (>2000 NG/ML) < 100 Methadone Screen (>300 NG/ML) 49 Barbiturate Screen (>200 NG/ML) < 60 Ur Phencyclidine Scrn (>25 NG/ML) < 6.00 Amphetamines Screen (>1000 NG/ML) < 100 U Benzodiazepines Scrn (>200 NG/ML) < 85 Urine Cocaine Screen (>300 NG/ML) < 50 Urine Cannabis Screen (>50 NG/ML) < 5.00 Urines Urinalysis LIGHT H Urine Color (YEL,AMB,STR) YEL Urine Clarity (CLEAR) CLEAR Urine pH (5.0 - 8.0) 6.0 Ur Specific Hagerman (1.001 - 1.035) 1.010 Urine Protein (NEG,<30 MG/DL) NEG Urine Ketones (NEG) TRACE H Urine Nitrite (NEG) POS H Urine Bilirubin (NEG) NEG Urine Urobilinogen (0.1 - 1.0 EU/dl) 0.2 Ur Leukocyte Esterase (NEG) NEG Ur Microscopic SEDIMENT EXAMINED Urine RBC (0 - 5 /HPF) 1-3 Urine WBC (0 - 2 /HPF) 3-5 H Ur Epithelial Cells (NONE,FEW) FEW Urine Bacteria (NEG/NONE) FEW H Urine Hemoglobin (NEG) NEG Urine Glucose (N MG/DL) >=1000 H 09/22 09/22 09/22 1455 1328 1328 Blood Gas pH (7.35 - 7.45 PH) 7.47 H pCO2 (35 - 45 TORR) 39 pO2 (80 - 100 TORR) 81 HCO3 (21 - 28 MEQ/L) 28 ABG O2 Sat (Measured) (>96.0 %) 95.0 L Carboxyhemoglobin (1.5 - 5.0 %) 1.2 L O2 Concentration % RA O2 Delivery Method RA Chemistry Lactic Acid (0.7 - 2.1 mmol/L) 2.4 H LDL Cholesterol Direct Cancelled Miscellaneous Phlebotomy Draw Site RIGHT RADIAL 09/22 1328 Chemistry Sodium (137 - 145 mmol/L) 132 L Potassium (3.5 - 5.1 mmol/L) 3.9 Chloride (98 - 107 mmol/L) 84 L Carbon Dioxide (22 - 30 mmol/L) 28 Anion Gap (5 - 16) 20 H BUN (7 - 17 mg/dL) 21 H Creatinine (0.5 - 1.0 mg/dL) 1.4 H Estimated GFR (>60 ml/min) 39 L BUN/Creatinine Ratio (7 - 25 %) 15.0 Glucose (65 - 99 mg/dL) 661 *H Serum Osmolality (285 - 295 MOSM/KG) 331 H Calcium (8.4 - 10.2 mg/dL) 9.9 Magnesium (1.6 - 2.3 mg/dL) 1.7 Total Bilirubin (0.2 - 1.3 mg/dL) 0.8 AST (14 - 36 U/L) 18 ALT (9 - 52 U/L) 29 Alkaline Phosphatase (<127 U/L) 95 Troponin I (< 0.11 ng/ml) < 0.01 Total Protein (6.3 - 8.2 g/dL) 7.5 Albumin (3.5 - 5.0 g/dL) 4.3 Globulin (1.9 - 4.2 gm/dL) 3.2 Albumin/Globulin Ratio (1.1 - 2.2 %) 1.3 Triglycerides (<150 mg/dL) 840 H Cholesterol (<200 MG/DL) 314 H LDL Cholesterol Direct (<100 mg/dL) 132.43 H LDL Cholesterol, Calc (65 - 129 MG/DL) ND HDL Cholesterol (40 - 60 mg/dL) 48 Cholesterol/HDL Ratio (0.00 - 4.23 %) 7 H TSH (0.270 - 4.200 uIU/mL) 0.745 Free T4 (0.64 - 1.79 ng/dL) 2.31 H Cortisol AM Sample (4.46 - 22.7 ug/dL) 17.5 Hematology CBC w Diff NO MAN DIFF REQ WBC (4.8 - 10.8 /CUMM) 5.5 RBC (4.20 - 5.40 /CUMM) 4.95 Hgb (12.0 - 16.0 G/DL) 14.1 Hct (37 - 47 %) 42.8 MCV (81.0 - 99.0 FL) 86.5 MCH (27.0 - 31.0 PG) 28.4 MCHC (33.0 - 37.0 G/DL) 32.9 L RDW (11.5 - 14.5 %) 15.2 H Plt Count (130 - 400 /CUMM) 183 MPV (7.4 - 10.4 FL) 10.3 Gran % (42.2 - 75.2 %) 73.8 Lymphocytes % (20.5 - 51.1 %) 12.5 L Monocytes % (1.7 - 9.3 %) 10.0 H Eosinophils % (0 - 5 %) 3.2 Basophils % (0.0 - 2.0 %) 0.5 Absolute Granulocytes (1.4 - 6.5 /CUMM) 4.1 Absolute Lymphocytes (1.2 - 3.4 /CUMM) 0.7 L Absolute Monocytes (0.10 - 0.60 /CUMM) 0.6 Absolute Eosinophils (0.0 - 0.7 /CUMM) 0.2 Absolute Basophils (0.0 - 0.2 /CUMM) 0 Toxicology Serum Alcohol (<10 MG/DL) < 10.0 Acetone Level (NEGATIVE) POSITIVE : UNDILUTED Assessment/Plan Assessment/Plan This 57-year-old woman with a known history of diabetes mellitus type 2, bipolar disorder, and hypothyroidism presents with a hyperglycemic hyperosmolar state after stopping her medications at home. She states she stopped the medicine because she could not afford them. The patient is presently on Levemir 10 units twice a day as well as sliding scale NovoLog. She is much improved after hydration and repletion of her sodium and potassium. She had acute kidney injury due to dehydration which is now resolved. Her thyroid tests remained in normal range. Suggest increase the patient's insulin to 15 units of Levemir twice a day. Increase sliding scale NovoLog before meals to be 80-150 give 6 units NovoLog, 151-200 give 8 units NovoLog, 201-250 give 10 units NovoLog, 251-300 give 12 units NovoLog, 301-350 give 14 units NovoLog, 351-400 give 16 units NovoLog. Bedtime sliding scale NovoLog should stay the same. The patient should be seen by psychiatry while in the hospital. She is on Depakote at home which is not ideal in view of her obesity and diabetes. The patient should also be seen by social work to see if she can get extra help with her prescriptions. As an outpatient patient would do better on medications which are associated with weight loss such as GLP-1 analogs and also SGOT 2 drugs. Consult Acknowledgment - Thank you for your consult request.
--- NOTE | 2017-09-23 07:58 | PN- Housestaff ---
See Addendum Brayan LI,Emir 09/23/17 0757: Subjective Follow-up For: Diabetic Hyperosmolar state, secondary to noncompliance to medicine Complaints: LETHARGY Subjective: I followed the patient today. See is resting comfortably in bed, but does appear lethargic, does not have any other active complaints. No nursing issues reported to me overnight. Patient has blood sugar checks every 2 hours currently, but since the patient has started eating this will be changed. Her anion gap has closed. Blood sugar this morning was 421 at 8 AM. IV normal saline with 20 mL daily KCl running at 125 mL per hour. K-3.4 this AM. Review of Systems Constitutional: Reports: see HPI. Objective Last 24 Hrs of Vital Signs/I&O Vital Signs Date Time Temp Pulse Resp B/P B/P Pulse O2 O2 Flow FiO2 Mean Ox Delivery Rate 09/23 1414 98.0 100 18 124/60 96 Room Air 09/23 0548 98.1 96 20 118/78 94 Room Air 09/22 2220 98.3 99 18 158/60 98 Room Air / 2200 98.8 100 18 135/60 99 Room Air / 1930 95.8 96 18 151/65 97 Room Air Intake & Output 09/23 1600 09/23 0800 09/23 0000 Intake Total 1730 1000 Output Total 500 700 300 Balance 1230 300 -300 Intake, IV 1010 1000 Intake, Oral 720 Number 1 Bowel Movements Output, Urine 500 700 300 Patient 113.852 kg Weight Weight Bed scale Measurement Method Physical Exam General Appearance: Oriented X3, Cooperative, No Acute Distress, lethargic Other Physical Findings: HEENT Atraumatic, PERRLA, multiple small areas of redness over the baptism Neck Supple Cardiovascular Regular Rate, Normal S1, Normal S2 Lungs diminished breath sounds bilaterally, NOT in resp distress Abdomen Normal Bowel Sounds, distended, no clinical ascites Extremities Normal Pulses, trace edema, surgery scar on right knee. Multiple areas of redness/excoriations Pelvic exam NOT done Current Medications: Current Medications Sig/Domo Start time Last Medication Dose Route Stop Time Status Admin Acetaminophen 325 MG Q6 PRN 09/22 2014 AC PO Ceftriaxone Sodium 1,000 MG ONCE ONE 09/22 1944 CAN IV 09/22 1945 Divalproex Sodium 1,500 MG QPM 05/07 2100 AC PO Fluconazole 150 MG ONCE ONE 09/22 2315 DC 09/23 PO 09/22 2316 0006 Heparin Sodium 5,000 UNIT Q8 09/22 2200 AC 09/23 (Porcine) SC 1336 Heparin Sodium 0 .STK-MED ONE 09/22 2124 DC (Porcine) .ROUTE Hydrocortisone 1 RUDDY BID 09/23 09 09/23 TOP 0957 Hydroxyzine HCl 50 MG TID 09/23 0900 AC 09/23 PO 1336 Insulin Aspart 0 TIDAC/HS 09/23 0800 AC 09/23 GA 1651 Insulin Aspart 6 UNITS ONCE ONE 09/23 0215 DC 09/23 SC 09/23 0216 0220 Insulin Aspart 4 UNITS ONCE ONE 09/23 0115 DC 09/23 SC 09/23 0116 0120 Insulin Aspart 4 UNITS ONCE ONE 09/22 2215 DC 09/22 SC 09/22 2216 2300 Insulin Detemir 15 UNITS BID 09/23 2100 AC SC Insulin Detemir 5 UNITS ONCE ONE 09/23 1145 DC 09/23 SC 09/23 1146 1158 Insulin Detemir 10 UNITS BID 09/22 2100 NJ 09/23 GA 0805 Levothyroxine Sodium 0.075 MG DAILY AC 09/23 0700 AC 09/23 PO 0535 Potassium Chloride 40 MEQ ONCE ONE 09/23 0930 DC 09/23 PO 09/23 0931 0956 Potassium Chloride 10 MEQ ONCE ONE 09/22 2300 DC / IV 09/22 2301 2320 Potassium Chloride 20 MEQ Q8H 09/22 2230 DC 09/23 Sodium Chloride 1,000 ML IV 1807 Sodium Chloride 1,000 ML ONCE ONE 09/22 2099 DC 09/22 IV 09/23 0159 2115 Trazodone HCl 200 MG QPM PRN 09/23 0630 PO Trimethobenzamide HCl 200 MG 4 TIMES/DAY PRN 09/22 2230 AC IM Vitamin A/Vitamin D 1 RUDDY BID 09/22 231 09/23 TOP 0957 Last 24 Hrs of Lab/Raul Results Last 24 Hrs of Labs/Mics: Laboratory Tests 09/23/17 0620: Anion Gap 13, Estimated GFR 57 L, BUN/Creatinine Ratio 18.0, CBC w Diff NO MAN DIFF REQ, RBC 4.03 L, MCV 87.0, MCH 29.0, MCHC 33.3, RDW 15.3 H, MPV 10.8 H, Gran % 54.3, Lymphocytes % 29.0, Monocytes % 11.2 H, Eosinophils % 4.9, Basophils % 0.6, Absolute Granulocytes 2.6, Absolute Lymphocytes 1.4, Absolute Monocytes 0.5, Absolute Eosinophils 0.2, Absolute Basophils 0 09/22/172300: Lactic Acid Cancelled 09/22/172109: Anion Gap 14, Estimated GFR 51 L, BUN/Creatinine Ratio 18.2, Glucose 440 H, Hemoglobin A1c 9.9 H, Lactic Acid 1.3, Calcium 9.0, Total Bilirubin 0.6, AST 17 , ALT 21, Alkaline Phosphatase 75, Total Protein 6.2 L, Albumin 3.5, Globulin 2.7, Albumin/Globulin Ratio 1.3, CBC w Diff NO MAN DIFF REQ, RBC 4.11 L, MCV 85.8, MCH 28.4, MCHC 33.1, RDW 14.9 H, MPV 10.2, Gran % 61.8, Lymphocytes % 21.4, Monocytes % 12.1 H, Eosinophils % 4.3, Basophils % 0.4, Absolute Granulocytes 3.2, Absolute Lymphocytes 1.1 L, Absolute Monocytes 0.6, Absolute Eosinophils 0.2, Absolute Basophils 0 Microbiology 09/23 2315 BLOOD: Blood Culture - RES 09/22 2314 URINE ROUT: Urine Culture - RECD 09/22 2299 BLOOD: Blood Culture - RES 09/23 2019 BLOOD: Blood Culture - CAN Cancelled: AREROBIC ONLY 09/22 1936 BLOOD: Blood Culture - CAN Cancelled: SPECIMEN ENVER RECEIVED. REORDERED AND DONE 09/23 2315 Assessment/Plan Assessment: 57-year-old obese female with past history of type 2 diabetes mellitus, hyperlipidemia, hypothyroidism, GERD, bipolar disorder, with noncompliance to medication including diabetes pills was brought into the ED for altered mental status from the the medical center. See was found to have hyperosmolar state, not in DKA, and was treated aggressively in the emergency department. She is now in general medical floor for the management of following issues: # Severe sepsis (hypothermia, tachycardia, lactic acidosis, FAM, urinary infection) Patient's clinical condition is slowly improving, and is on IV antibiotic for the UTI, cultures pending. Lactic acidosis has resolved. # Hyperglycemia likely HHS in the setting of medication noncompliance, infection Patient's blood sugar levels are decreasing, her anion gap has closed, the patient has been started on oral diet, endocrinology consulted, following recs. # Pseudohyponatremia in the setting of hyperglycemia # Lactic acidosis, resolved # Hypokalemia, repleted, will check tomorrow # Vaginal candidiasis, on antifungal meds # FAM likely prerenal in the setting of dehydration, IVF continued, will stop after adequate oral intake # Bipolar disorder She takes Valproate which can cause weight gain (>1% to 9%), making management of DM less effective. Will get Psych consult for med recs for replacement. Might need tapering. # Mixed hyperlipidemia Patient is allergic to statins, will ask Endocrine service for recs. Fibrates could be an option. # Hypothyroidism Continue Sunthroid. Diet: Diabetic diet CC1 DVT ppx: SQ Heparin Code status: Full code Problem List: 1. Hyperosmolar syndrome 2. Hyperosmolar hyponatremia 3. Yeast infection 4. Severe sepsis 5. UTI (urinary tract infection) Pain Ratin Pain Location: - Pain Goal: Pain 4 or less Pain Plan: prn Tomorrow's Labs & Rationales: CBC, BEP Tulio Westbrook MD 09/23/171951: Attending MD Review Statement Attending Statement Attending MD Statement: examined this patient, discuss w/resident/PA/BARN OPERATOR, agreed w/resident/PA/BARN OPERATOR, reviewed EMR data (avail), discussed with nursing, discussed with case mgmt, amended to note Attending Assessment/Plan: The patient was seen and discussed with house staff. Agree with the plan of care as outlined. Appreciate Endocrinology follow-up.
[2017-09-23 09:00] LABS: ABSOLUTE BASOPHIL COUNT 0 /CUMM (0.0-0.2); ABSOLUTE EOSINOPHIL COUNT 0.2 /CUMM (0.0-0.7); ABSOLUTE GRANULOCYTE CT 2.6 /CUMM (1.4-6.5); ABSOLUTE LYMPH COUNT 1.4 /CUMM (1.2-3.4); ABSOLUTE MONOCYTE COUNT 0.5 /CUMM (0.10-0.60); BASOPHIL % 0.6 % (0.0-2.0); EOSINOPHIL % 4.9 % (0-5); GRANULOCYTE % 54.3 % (42.2-75.2); HEMATOCRIT 35.1 % (37-47); MEAN CORPUSCULAR HGB CONC 33.3 G/DL (33.0-37.0); MEAN PLATELET VOLUME 10.8 FL (7.4-10.4); PLATELET COUNT 168 /CUMM (130-400); RBC DISTRIBUTION WIDTH 15.3 % (11.5-14.5); RED BLOOD CELL CT 4.03 /CUMM (4.20-5.40); WHITE BLOOD CELL COUNT 4.9 /CUMM (4.8-10.8)
[2017-09-23 14:14] VITALS: BP 124/60
[2017-09-23 21:58] VITALS: BP 146/72
[2017-09-24 06:45] VITALS: BP 128/60
--- NOTE | 2017-09-24 07:42 | PN- Diabetes ---
Assessment/Plan Diabetes Assessment: The patient feels improved. She is eating okay. Her Levemir was increased to 15 units twice a day and she is on sliding scale NovoLog beginning with 6 units for sugar 80-150. Her blood sugars are beginning to come down. Her fasting blood sugar this morning was 242. Plan: Suggest begin Januvia 100 mg daily. Continue the present insulin. The patient states that she does not tolerate metformin because it upset her stomach. I am not sure what dose of metformin she was on before but we may need to try this again in low doses along with her insulin. As an outpatient she would be a candidate for an SGLT2 analog and also a GLP-1 drugs such as Bydureon. Subjective Subjective: Feels okay Review of Systems Constitutional: Denies: chills, fever. Cardiovascular: Denies: chest pain. Respiratory: Denies: short of breath. Gastrointestinal: Denies: abdominal pain, nausea, vomiting. Skin: Reports: no symptoms. Objective Last 24 Hrs of Vital Signs/I&O Vital Signs Date Time Temp Pulse Resp B/P B/P Pulse O2 O2 Flow FiO2 Mean Ox Delivery Rate 09/24 0545 97.9 93 19 128/60 94 Room Air 09/23 2158 98.5 104 18 146/72 94 Room Air 09/23 1414 98.0 100 18 124/60 96 Room Air Intake & Output 09/24 0800 09/24 0000 09/23 1600 Intake Total 422 327 0501 Output Total 500 Balance 293 652 0977 Intake, IV 954 499 1789 Intake, Oral 120 120 720 Number 1 Bowel Movements Output, Urine 500 Physical Exam General Appearance: alert, awake, obese Head: normal appearance Neck: normal inspection Respiratory: normal breath sounds Cardiovascular: regular rate/rhythm Abdomen: normal bowel sounds, soft Extremities: normal inspection Current Medications: Current Medications Sig/Domo Start time Last Medication Dose Route Stop Time Status Admin Acetaminophen 325 MG Q6 PRN 09/22 2014 AC PO Divalproex Sodium 1,500 MG QPM 09/23 2100 AC 09/23 PO 2019 Heparin Sodium 5,000 UNIT Q8 09/22 2200 AC 09/24 (Porcine) SC 0506 Hydrocortisone 1 RUDDY BID 09/23 899 AC 09/23 TOP 2019 Hydroxyzine HCl 50 MG TID 09/23 899 AC 09/23 PO 2019 Insulin Aspart 0 TIDAC/HS 09/23 0800 AC 09/23 ME 2018 Insulin Detemir 15 UNITS BID 09/23 2099 AC 09/23 ME 2017 Insulin Detemir 5 UNITS ONCE ONE 09/[address] 09/23 ME 09/23 1146 1158 Insulin Detemir 10 UNITS BID 09/[address] 09/23 ME 0805 Levothyroxine Sodium 0.075 MG DAILY AC 09/23 07 AC 09/24 PO 0506 Potassium Chloride 40 MEQ ONCE ONE 09/23 0930 DC 09/23 PO 09/23 0931 0956 Potassium Chloride 20 MEQ Q8H 09/[address] 09/23 Sodium Chloride 1,000 ML IV 1807 Trazodone HCl 200 MG QPM PRN 09/23 629 AC PO Trimethobenzamide HCl 200 MG 4 TIMES/DAY PRN 09/22 2229 AC IM Vitamin A/Vitamin D 1 RUDDY BID 09/22 2315 09/23 [facility] 2018 Findings Pertinent Lab/Raul Results: Laboratory Tests 09/24 09/23 09/22 0632 0620 2301 Chemistry Sodium (137 - 145 mmol/L) Pending 135 L Potassium (3.5 - 5.1 mmol/L) Pending 3.4 L Chloride (98 - 107 mmol/L) Pending 96 L Carbon Dioxide (22 - 30 mmol/L) Pending 26 Anion Gap (5 - 16) Pending 13 BUN (7 - 17 mg/dL) Pending 18 H Creatinine (0.5 - 1.0 mg/dL) Pending 1.0 Estimated GFR (>60 ml/min) 57 L BUN/Creatinine Ratio (7 - 25 %) Pending 18.0 Lactic Acid Cancelled Hematology CBC w Diff Pending NO MAN DIFF REQ WBC (4.8 - 10.8 /CUMM) Pending 4.9 RBC (4.20 - 5.40 /CUMM) Pending 4.03 L Hgb (12.0 - 16.0 G/DL) Pending 11.7 L Hct (37 - 47 %) Pending 35.1 L MCV (81.0 - 99.0 FL) Pending 87.0 MCH (27.0 - 31.0 PG) Pending 29.0 MCHC (33.0 - 37.0 G/DL) Pending 33.3 RDW (11.5 - 14.5 %) Pending 15.3 H Plt Count (130 - 400 /CUMM) Pending 168 MPV (7.4 - 10.4 FL) Pending 10.8 H Gran % (42.2 - 75.2 %) 54.3 Lymphocytes % (20.5 - 51.1 %) 29.0 Monocytes % (1.7 - 9.3 %) 11.2 H Eosinophils % (0 - 5 %) 4.9 Basophils % (0.0 - 2.0 %) 0.6 Absolute Granulocytes (1.4 - 6.5 /CUMM) 2.6 Absolute Lymphocytes (1.2 - 3.4 /CUMM) 1.4 Absolute Monocytes (0.10 - 0.60 /CUMM) 0.5 Absolute Eosinophils (0.0 - 0.7 /CUMM) 0.2 Absolute Basophils (0.0 - 0.2 /CUMM) 0 / 05 2110 1725 Chemistry Sodium (137 - 145 mmol/L) 137 Potassium (3.5 - 5.1 mmol/L) 3.4 L Chloride (98 - 107 mmol/L) 95 L Carbon Dioxide (22 - 30 mmol/L) 28 Anion Gap (5 - 16) 14 BUN (7 - 17 mg/dL) 20 H Creatinine (0.5 - 1.0 mg/dL) 1.1 H Estimated GFR (>60 ml/min) 51 L BUN/Creatinine Ratio (7 - 25 %) 18.2 Glucose (65 - 99 mg/dL) 440 H Hemoglobin A1c (4.2 - 5.8 %) 9.9 H Lactic Acid (0.7 - 2.1 mmol/L) 1.3 4.1 H Calcium (8.4 - 10.2 mg/dL) 9.0 Total Bilirubin (0.2 - 1.3 mg/dL) 0.6 AST (14 - 36 U/L) 17 ALT (9 - 52 U/L) 21 Alkaline Phosphatase (<127 U/L) 75 Total Protein (6.3 - 8.2 g/dL) 6.2 L Albumin (3.5 - 5.0 g/dL) 3.5 Globulin (1.9 - 4.2 gm/dL) 2.7 Albumin/Globulin Ratio (1.1 - 2.2 %) 1.3 Hematology CBC w Diff NO MAN DIFF REQ WBC (4.8 - 10.8 /CUMM) 5.1 RBC (4.20 - 5.40 /CUMM) 4.11 L Hgb (12.0 - 16.0 G/DL) 11.7 L Hct (37 - 47 %) 35.2 L MCV (81.0 - 99.0 FL) 85.8 MCH (27.0 - 31.0 PG) 28.4 MCHC (33.0 - 37.0 G/DL) 33.1 RDW (11.5 - 14.5 %) 14.9 H Plt Count (130 - 400 /CUMM) 169 MPV (7.4 - 10.4 FL) 10.2 Gran % (42.2 - 75.2 %) 61.8 Lymphocytes % (20.5 - 51.1 %) 21.4 Monocytes % (1.7 - 9.3 %) 12.1 H Eosinophils % (0 - 5 %) 4.3 Basophils % (0.0 - 2.0 %) 0.4 Absolute Granulocytes (1.4 - 6.5 /CUMM) 3.2 Absolute Lymphocytes (1.2 - 3.4 /CUMM) 1.1 L Absolute Monocytes (0.10 - 0.60 /CUMM) 0.6 Absolute Eosinophils (0.0 - 0.7 /CUMM) 0.2 Absolute Basophils (0.0 - 0.2 /CUMM) 0 /06 05/ 1516 1455 Blood Gas pH (7.35 - 7.45 PH) 7.47 H pCO2 (35 - 45 TORR) 39 pO2 (80 - 100 TORR) 81 HCO3 (21 - 28 MEQ/L) 28 ABG O2 Sat (Measured) (>96.0 %) 95.0 L Carboxyhemoglobin (1.5 - 5.0 %) 1.2 L O2 Concentration % RA O2 Delivery Method RA Miscellaneous Phlebotomy Draw Site RIGHT RADIAL Toxicology Urine Opiates Screen (>2000 NG/ML) < 100 Methadone Screen (>300 NG/ML) 49 Barbiturate Screen (>200 NG/ML) < 60 Ur Phencyclidine Scrn (>25 NG/ML) < 6.00 Amphetamines Screen (>1000 NG/ML) < 100 U Benzodiazepines Scrn (>200 NG/ML) < 85 Urine Cocaine Screen (>300 NG/ML) < 50 Urine Cannabis Screen (>50 NG/ML) < 5.00 Urines Urinalysis LIGHT H Urine Color (YEL,AMB,STR) YEL Urine Clarity (CLEAR) CLEAR Urine pH (5.0 - 8.0) 6.0 Ur Specific [place] (1.001 - 1.035) 1.010 Urine Protein (NEG,<30 MG/DL) NEG Urine Ketones (NEG) TRACE H Urine Nitrite (NEG) POS H Urine Bilirubin (NEG) NEG Urine Urobilinogen (0.1 - 1.0 EU/dl) 0.2 Ur Leukocyte Esterase (NEG) NEG Ur Microscopic SEDIMENT EXAMINED Urine RBC (0 - 5 /HPF) 1-3 Urine WBC (0 - 2 /HPF) 3-5 H Ur Epithelial Cells (NONE,FEW) FEW Urine Bacteria (NEG/NONE) FEW H Urine Hemoglobin (NEG) NEG Urine Glucose (N MG/DL) >=1000 H 09/22 09/22 1328 1328 Chemistry Lactic Acid (0.7 - 2.1 mmol/L) 2.4 H LDL Cholesterol Direct Cancelled 09/22 1328 Chemistry Sodium (137 - 145 mmol/L) 132 L Potassium (3.5 - 5.1 mmol/L) 3.9 Chloride (98 - 107 mmol/L) 84 L Carbon Dioxide (22 - 30 mmol/L) 28 Anion Gap (5 - 16) 20 H BUN (7 - 17 mg/dL) 21 H Creatinine (0.5 - 1.0 mg/dL) 1.4 H Estimated GFR (>60 ml/min) 39 L BUN/Creatinine Ratio (7 - 25 %) 15.0 Glucose (65 - 99 mg/dL) 661 *H Serum Osmolality (285 - 295 MOSM/KG) 331 H Calcium (8.4 - 10.2 mg/dL) 9.9 Magnesium (1.6 - 2.3 mg/dL) 1.7 Total Bilirubin (0.2 - 1.3 mg/dL) 0.8 AST (14 - 36 U/L) 18 ALT (9 - 52 U/L) 29 Alkaline Phosphatase (<127 U/L) 95 Troponin I (< 0.11 ng/ml) < 0.01 Total Protein (6.3 - 8.2 g/dL) 7.5 Albumin (3.5 - 5.0 g/dL) 4.3 Globulin (1.9 - 4.2 gm/dL) 3.2 Albumin/Globulin Ratio (1.1 - 2.2 %) 1.3 Triglycerides (<150 mg/dL) 840 H Cholesterol (<200 MG/DL) 314 H LDL Cholesterol Direct (<100 mg/dL) 132.43 H LDL Cholesterol, Calc (65 - 129 MG/DL) ND HDL Cholesterol (40 - 60 mg/dL) 48 Cholesterol/HDL Ratio (0.00 - 4.23 %) 7 H TSH (0.270 - 4.200 uIU/mL) 0.745 Free T4 (0.64 - 1.79 ng/dL) 2.31 H Cortisol AM Sample (4.46 - 22.7 ug/dL) 17.5 Hematology CBC w Diff NO MAN DIFF REQ WBC (4.8 - 10.8 /CUMM) 5.5 RBC (4.20 - 5.40 /CUMM) 4.95 Hgb (12.0 - 16.0 G/DL) 14.1 Hct (37 - 47 %) 42.8 MCV (81.0 - 99.0 FL) 86.5 MCH (27.0 - 31.0 PG) 28.4 MCHC (33.0 - 37.0 G/DL) 32.9 L RDW (11.5 - 14.5 %) 15.2 H Plt Count (130 - 400 /CUMM) 183 MPV (7.4 - 10.4 FL) 10.3 Gran % (42.2 - 75.2 %) 73.8 Lymphocytes % (20.5 - 51.1 %) 12.5 L Monocytes % (1.7 - 9.3 %) 10.0 H Eosinophils % (0 - 5 %) 3.2 Basophils % (0.0 - 2.0 %) 0.5 Absolute Granulocytes (1.4 - 6.5 /CUMM) 4.1 Absolute Lymphocytes (1.2 - 3.4 /CUMM) 0.7 L Absolute Monocytes (0.10 - 0.60 /CUMM) 0.6 Absolute Eosinophils (0.0 - 0.7 /CUMM) 0.2 Absolute Basophils (0.0 - 0.2 /CUMM) 0 Toxicology Serum Alcohol (<10 MG/DL) < 10.0 Acetone Level (NEGATIVE) POSITIVE : UNDILUTED
--- NOTE | 2017-09-24 07:50 | PN- Housestaff ---
Brayan LI,Emir 09/24/17 0750: Subjective Follow-up For: Diabetic Hyperosmolar state, secondary to noncompliance to medicine Complaints: no complaints Subjective: I followed up the patient today. She is resting comfortably in a recliner, appears much alert, active, compared to yesterday, and does not offer any complaints. No nursing issues reported to me overnight. Review of Systems Constitutional: Reports: no symptoms. Objective Last 24 Hrs of Vital Signs/I&O Vital Signs Date Time Temp Pulse Resp B/P B/P Pulse O2 O2 Flow FiO2 Mean Ox Delivery Rate 09/24 1515 99.2 96 18 140/70 97 Room Air 09/24 0800 96 Room Air 09/24 0645 97.9 93 19 128/60 94 Room Air 09/23 2158 98.5 104 18 146/72 94 Room Air Intake & Output 09/24 1600 09/24 0800 09/24 0000 Intake Total 1200 370 620 Output Total Balance 1200 370 620 Intake, IV 250 500 Intake, Oral 1200 120 120 Patient 113.852 kg Weight Physical Exam General Appearance: Alert, Oriented X3, Cooperative, No Acute Distress, morbidly obese Other Physical Findings: HEENT Atraumatic, PERRLA Skin Bruises (chronic); hair scanty Neck Supple Cardiovascular Regular Rate, Normal S1, Normal S2 Lungs diminished breath sounds bilaterally, NOT in resp distress Abdomen Normal Bowel Sounds, distended, no clinical ascites Extremities Normal Pulses, trace edema, surgery scar on right knee. Multiple areas of redness/excoriations Pelvic exam NOT done Current Medications: Current Medications Sig/Domo Start time Last Medication Dose Route Stop Time Status Admin Acetaminophen 325 MG Q6 PRN 09/22 2014 AC 09/24 PO 1523 Divalproex Sodium 1,250 MG QPM 09/24 2100 AC PO Divalproex Sodium 1,500 MG QPM 09/23 2100 DC 09/23 PO 2019 Heparin Sodium 5,000 UNIT Q8 09/22 2200 AC 09/24 (Porcine) SC 1320 Hydrocortisone 1 RUDDY BID 09/23 09 AC 09/24 TOP 0909 Hydroxyzine HCl 50 MG TID 09/23 09 AC 09/24 PO 1321 Insulin Aspart 0 TIDAC/HS 09/24 799 AC 09/24 SC 1621 Insulin Detemir 15 UNITS BID 09/23 2099 AC 09/24 SC 0902 Levothyroxine Sodium 0.075 MG DAILY AC 09/23 0700 AC 09/24 PO 0506 Patient Medication 1 ED ONE ONE 09/24 1815 SC Teaching ED 09/24 181 Sitagliptin Phosphate 100 MG DAILY 09/25 899 AC PO Trazodone HCl 200 MG QPM PRN 09/23 0630 AC PO Trimethobenzamide HCl 200 MG 4 TIMES/DAY PRN 09/22 2230 AC IM Vitamin A/Vitamin D 1 RUDDY BID 09/22 2315 AC 09/24 [facility] 0904 Last 24 Hrs of Lab/Raul Results Last 24 Hrs of Labs/Mics: Laboratory Tests 09/24/17 1115: Ammonia 18 09/24/17 0632: Anion Gap 10, Estimated GFR > 60, BUN/Creatinine Ratio 13.8, CBC w Diff NO MAN DIFF REQ, RBC 3.81 L, MCV 86.6, MCH 29.0, MCHC 33.5, RDW 15.2 H, MPV 10.4, Gran % 32.7 L, Lymphocytes % 53.8 H, Monocytes % 8.1, Eosinophils % 5.0, Basophils % 0.4, Absolute Granulocytes 1.3 L, Absolute Lymphocytes 2.2, Absolute Monocytes 0.3, Absolute Eosinophils 0.2, Absolute Basophils 0 Assessment/Plan Assessment: 57-year-old obese female with past history of type 2 diabetes mellitus, hyperlipidemia, hypothyroidism, GERD, bipolar disorder, with noncompliance to medication including diabetes pills was brought into the ED for altered mental status from the [facility]. See was found to have hyperosmolar state, not in DKA, and was treated aggressively in the emergency department. She is now in general medical floor for the management of following issues: Patient was recorded as sepsis initially given her SIRS criteria and possible source of infection, but this all can be due to the fact that she was dehydrated and was having reflex tachycardia, lactic acidosis, along with possible source of infection. Tus retracting the diagnosis of sepsis. # Hyperglycemia likely HHS in the setting of medication noncompliance, infection Patient's blood sugar levels are decreasing, her anion gap has closed, the patient has been started on oral diet, endocrinology consulted, following recs. She has been started on Januvia. #UTI, symptomatic Continuing CTX, pending U cultures. # Pseudohyponatremia in the setting of hyperglycemia, resolved # Lactic acidosis, resolved # Hypokalemia, resolved # Vaginal candidiasis, on antifungal meds # FAM likely prerenal in the setting of dehydration, IVF continued, will stop after adequate oral intake # Bipolar disorder She takes Valproate which can cause weight gain (>1% to 9%), making management of DM less effective. Will get Psych consult for med recs for replacement. Might need tapering. # Mixed hyperlipidemia Patient is allergic to statins, will ask Endocrine service for recs. Fibrates could be an option. # Hypothyroidism Continue Synthroid. Diet: Diabetic diet CC1 DVT ppx: SQ Heparin Code status: Full code Problem List: 1. Hyperosmolar syndrome 2. Hyperosmolar hyponatremia 3. UTI (urinary tract infection) Pain Ratin Pain Location: - Pain Goal: Pain 4 or less Pain Plan: prn Tomorrow's Labs & Rationales: Tulio Stanton MD 09/24/17 1808: Attending MD Review Statement Attending Statement Attending MD Statement: examined this patient, discuss w/resident/PA/PHYTOCHEMISTRY PROFESSOR, agreed w/resident/PA/PHYTOCHEMISTRY PROFESSOR, reviewed EMR data (avail), discussed with nursing, discussed with case mgmt, amended to note Attending Assessment/Plan: The patient was seen and discussed with house staff, nursing, case management, community mental health social worker, and psychiatry. Appreciate input from above and Endocrinology. Sugars improving and following Dr. Alexis's recommendations. The patient stated she could not afford medication, however community mental health social worker say that all meds were picked up when checked with pharmacy. Dr. Schmitz recommends taper of Depakote and follow level. Check ammonia level.
[2017-09-24 08:35] LABS: ABSOLUTE BASOPHIL COUNT 0 /CUMM (0.0-0.2); ABSOLUTE EOSINOPHIL COUNT 0.2 /CUMM (0.0-0.7); ABSOLUTE GRANULOCYTE CT 1.3 /CUMM (1.4-6.5); ABSOLUTE LYMPH COUNT 2.2 /CUMM (1.2-3.4); ABSOLUTE MONOCYTE COUNT 0.3 /CUMM (0.10-0.60); BASOPHIL % 0.4 % (0.0-2.0); GRANULOCYTE % 32.7 % (42.2-75.2); MEAN CORPUSCULAR HGB CONC 33.5 G/DL (33.0-37.0); MEAN CORPUSCULAR VOLUME 86.6 FL (81.0-99.0); MEAN PLATELET VOLUME 10.4 FL (7.4-10.4); PLATELET COUNT 140 /CUMM (130-400); RBC DISTRIBUTION WIDTH 15.2 % (11.5-14.5); RED BLOOD CELL CT 3.81 /CUMM (4.20-5.40); WHITE BLOOD CELL COUNT 4.1 /CUMM (4.8-10.8)
--- NOTE | 2017-09-24 10:11 | Cons- Psychiatry ---
Psychiatric Consult Date of Consult: 09/24/17 Reason for Consult: med managment in a pt with hyperglycemia and morbid obesity on depakote History of Present Illness: Ms. Mullen is a 57yo F w/ a PMH of DM, HTN, past psych hx bipolar disorder, who was BIBA from [facility] w complaint that she was not herself. Pt was found to have hyperglycemia and hyperosmolality in the context of non-compliance with DM meds she hasn't taken for 2 months due to copays. Dr. Alexis from endocrine requested a consult given pt is maintained on depakote 1500 mg HS for her bipolar disorder prescribed by [facility]. She was admitted on September 22 for further stabilization. She has been evolving well but remains lethargic until today. On exam she is sitting up in chair speaking with SW. She reports not taking her diabetes meds due to copays. She also reports not taking her depakote for over a month. States family noticed she was not herself. She does not remember being manic in the past when I question her about bipolar disorder. She denies suicidality, AVH, is not delusional, manic or depressed. She denies substance abuse now and in past. Vitals wnl. Spoke with Tulio Westbrook MD from medicine there was no sepsis. Medical Hx. See HPI. Poor self-care. Psychoeducation given. PPhx: Reports being inpatient in "wanted it all over with" Outpatient care in [place], unclear where Outpatient care with Tamy Hadley psychiatrist at Care Does not remember being on other mood stabilizers No suicide attempts FH- mother depression son suicide attempt SH- Lives with one of her twin sons who are 23 yo. On disability MSE: 57 y/o MWF sitting in chair beside bed. Looks older than stated age. AOx3. Awake and alert with clear sensorium. She is in a richard, disheveled, missing teeth. Her speech is mostly clear sometimes hard to understand, normal in rate rhythm and volume. Her mood is OK but has been depressed in the past "I have a lot on my plate." Affect is full. She reports no delusional content, SI, HI or AVH. "I will always be here for my children." "I didnt know I could get so sick. " She has some word-finding difficulty. Attention is intact. General information is intact. Her insight and judgment into her self-care is poor. Labs: Re: depakote. LFts, platelets wnl. LDL 132.4 HDL 48 No NH3. No depakote level. Sugars trending down. TSH 0.745 Utox - for illicits Laboratory Tests 09/24/17 0632: Anion Gap 10, Estimated GFR > 60, BUN/Creatinine Ratio 13.8, CBC w Diff NO MAN DIFF REQ, RBC 3.81 L, MCV 86.6, MCH 29.0, MCHC 33.5, RDW 15.2 H, MPV 10.4, Gran % 32.7 L, Lymphocytes % 53.8 H, Monocytes % 8.1, Eosinophils % 5.0, Basophils % 0.4, Absolute Granulocytes 1.3 L, Absolute Lymphocytes 2.2, Absolute Monocytes 0.3, Absolute Eosinophils 0.2, Absolute Basophils 0 Current Medications Sig/Domo Start time Last Medication Dose Route Stop Time Status Admin Acetaminophen 325 MG Q6 PRN 09/22 2014 AC PO Divalproex Sodium 1,500 MG QPM 09/23 2100 AC 09/23 PO 2019 Heparin Sodium 5,000 UNIT Q8 09/22 2200 AC 09/24 (Porcine) SC 0506 Hydrocortisone 1 RUDDY BID 09/23 0900 09/24 TOP 0909 Hydroxyzine HCl 50 MG TID 09/23 09 AC 09/24 PO 0904 Insulin Aspart 0 TIDAC/HS 09/23 0800 09/24 FL 0903 Insulin Detemir 15 UNITS BID 09/23 2100 09/24 FL 0902 Insulin Detemir 5 UNITS ONCE ONE 09/23 1145 MN 09/23 FL 09/23 1146 1158 Insulin Detemir 10 UNITS BID 09/22 2100 MN 09/23 FL 0805 Levothyroxine Sodium 0.075 MG DAILY AC 09/23 0700 AC 09/24 PO 0506 Potassium Chloride 20 MEQ Q8H 09/22 2230 MN 09/23 Sodium Chloride 1,000 ML IV 1807 Trazodone HCl 200 MG QPM PRN 09/23 0630 AC PO Trimethobenzamide HCl 200 MG 4 TIMES/DAY PRN 09/22 2230 AC IM Vitamin A/Vitamin D 1 RUDDY BID 09/22 2315 09/24 TOP 0904 A/ This is a 57 y/o MWF with obesity, HTN and diabetes PPHx bipolar who presented with hyperglycemia in hyperosmolar state due to noncompliance with DM meds. Dr. Engle from endocrine would like her depakote changed to something with fewer metabolic ramifications given her weight and uncontrolled diabetes. I spoke with Dr. Alexis regarding her care. He would like her to change medications as long as she has not failed other trials. Pt is unaware of other mood stabilizers she has tried. I would start her taper slowly and if Dr. Hadley feels she would be unstable she can raise the depakote. P/Recs -Suggest drawing NH3 -Suggest decreasing her depakote to 1250 mg qHS to start taper -Draw depakote level in am. (It won't be perfectly accurate given her non- compliance and dose change but would like an idea where she is.) -Both hydroxyzine and trazodone can prolong QTc, would check EKG. -I spoke with her old case management rn at [facility] where she sees psychiatrist Tamy Hadley. Dr Hadley is there only on Mondays. I will leave her a VM as well as an email to continue depakote taper and to manage pt on a different mood stabilizer at her discretion -Appt with Dr Hadley October 07 at 3:00 pm. Please add to d/c instructions. -SW consult on board given pt's trouble paying co-pays. Please [facility] questions [facility] Allergies: Coded Allergies: Penicillins (Severe, RASH 10/21/16) STATINS (Intermediate, HIVES 10/21/16) metformin (VAGINAL ITCHING 02/16/17) TUTU Inhibitors (Intermediate, DRY COUGH 10/21/16) Past History Past Medical History Neurological: NONE EENT: NONE Cardiovascular: hypertension Respiratory: NONE Gastrointestinal: NONE Hepatic: NONE Renal: NONE Musculoskeletal: osteoarthritis Psychiatric: bipolar disease Endocrine: NIDDM Blood Disorders: NONE Cancer(s): NONE PBX MANAGER/Reproductive: NONE Past Surgical History Surgical History: KNEE REPLACEMENT Substance Use/Abuse History Drug Use/Abuse Substances Used/Abused No
[2017-09-24 15:15] VITALS: BP 140/70
[2017-09-24 22:14] VITALS: BP 146/78
[2017-09-25 05:54] VITALS: BP 148/78
--- NOTE | 2017-09-25 07:28 | PN- Housestaff ---
See Addendum Subjective Follow-up For: Diabetic Hyperosmolar state, secondary to noncompliance to medicine Subjective: Ms Mullen was seen and examined this morning. She is resting comfortably in bed. On initial interaction the patient was attempting to have breakfast although stated that she was unable to do so becuase she was having a difficult time chewing since she's has not been able to find her teeth. She is hoping that one of her sons can bring her teeth. She otherwise has been comfortable and was able to get some rest overnight. She denies any fever, chills, nausea, vomiting. Review of Systems Constitutional: Reports: see HPI. Objective Last 24 Hrs of Vital Signs/I&O Vital Signs Date Time Temp Pulse Resp B/P B/P Pulse O2 O2 Flow FiO2 Mean Ox Delivery Rate 09/25 0554 98.1 94 20 148/78 94 09/24 2214 99.0 100 18 146/78 95 Room Air 09/24 1515 99.2 96 18 140/70 97 Room Air Intake & Output 09/25 1600 09/25 0800 09/25 0000 Intake Total 120 1000 Output Total 550 Balance -430 1000 Intake, Oral 120 1000 Output, Urine 550 Physical Exam General Appearance: Alert, Oriented X3, Cooperative Skin: No Rashes, No Breakdown Cardiovascular: Regular Rate, Normal S1, Normal S2 Lungs: Clear to Auscultation Abdomen: Normal Bowel Sounds, Soft, No Tenderness, Distension noted Neurological: Normal Gait, Normal Speech, Strength at 5/5 X4 Ext Current Medications: Current Medications Sig/Domo Start time Last Medication Dose Route Stop Time Status Admin Acetaminophen 325 MG .STK-MED ONE 09/24 1522 DC PO 09/24 1523 Acetaminophen 325 MG Q6 PRN 09/22 2014 AC 09/24 PO 1523 Divalproex Sodium 1,250 MG QPM 09/24 2100 AC 09/24 PO 205 Divalproex Sodium 1,500 MG QPM 09/23 2100 DC 09/23 PO 2019 Heparin Sodium 5,000 UNIT Q8 09/22 2200 AC 09/25 (Porcine) SC 0506 Hydrocortisone 1 RUDDY BID 09/23 899 AC 09/25 TOP 0801 Hydroxyzine HCl 50 MG TID 09/23 09 AC 09/25 PO 0800 Insulin Aspart 0 TIDAC/HS 09/23 08 AC 05/09 SC 0748 Insulin Detemir 18 UNITS BID 09/25 899 UNVr SC Insulin Detemir 15 UNITS BID 09/23 2100 DC 09/25 SC 0800 Levothyroxine Sodium 0.075 MG DAILY AC 09/23 0700 AC 09/25 PO 0505 Metformin HCl 500 MG 1700 09/25 1700 UNVr PO Patient Medication 1 ED ONE ONE 09/24 1815 DC 09/24 Teaching ED 09/25 1815 205 Sitagliptin Phosphate 100 MG DAILY 09/25 899 AC 09/25 PO 0800 Trazodone HCl 200 MG QPM PRN 09/23 0630 AC PO Trimethobenzamide HCl 200 MG 4 TIMES/DAY PRN 09/22 2230 AC IM Vitamin A/Vitamin D 1 RUDDY BID 09/22 2315 AC 09/25 TOP 0801 Last 24 Hrs of Lab/Raul Results Last 24 Hrs of Labs/Mics: Laboratory Tests 09/25/17 0630: Sodium Pending, Potassium Pending, Chloride Pending, Carbon Dioxide Pending, Anion Gap Pending, BUN Pending, Creatinine Pending, BUN/Creatinine Ratio Pending , Valproic Acid Pending 09/24/17 1115: Ammonia 18 Assessment/Plan Assessment: Ms mullen is a 57-year-old obese female with past history of type 2 diabetes mellitus, hyperlipidemia, hypothyroidism, GERD, bipolar disorder, with noncompliance to medication including diabetic tablets who was brought into the ED for altered mental status from the [facility]. See was found to have hyperosmolar state, not in DKA, and was treated aggressively in the emergency department. She is now in general medical floor for the management of following issues: Patient was recorded as sepsis initially given her SIRS criteria and possible source of infection, but this all can be due to the fact that she was dehydrated and was having reflex tachycardia, lactic acidosis, along with possible source of infection. Tus retracting the diagnosis of sepsis. # Hyperglycemia likely HHS in the setting of medication noncompliance, infection Patient's blood sugar levels are decreasing, her anion gap has closed, the patient has been started on oral diet, endocrinology consulted, following recs. She has been started on Januvia 100 mg.Will also increase levemir to 18 units from 15. In an effort to have tighter glycemic control, also begin metformin 500 mg daily. #UTI, symptomatic Continuing CTX, pending U cultures. # Pseudohyponatremia in the setting of hyperglycemia, resolved # Lactic acidosis, resolved # Hypokalemia, resolved # Vaginal candidiasis, on antifungal meds # FAM likely prerenal in the setting of dehydration, IVF continued, will stop after adequate oral intake Cr.0.7 # Bipolar disorder She takes Valproate which can cause weight gain (>1% to 9%), making management of DM less effective. Depakote to 1250 MG daily, will conitnue taper as per recommendations from Psych. Depakote level pending Appointment with Dr Hadley October 07 at 3:00 pm. # Mixed hyperlipidemia Patient is allergic to statins, will ask Endocrine service for recs. Fibrates could be an option. # Hypothyroidism Continue Synthroid. Diet: Diabetic diet CC1 DVT ppx: SQ Heparin Code status: Full code Problem List: 1. Hyperosmolar syndrome Pain Ratin Pain Location: No Pain Pain Goal: Remain pain free Pain Plan: Tyelenol Tomorrow's Labs & Rationales: ?BEP
--- NOTE | 2017-09-25 07:59 | PN- Diabetes ---
Assessment/Plan Diabetes Assessment: The patient states she feels more like herself today. She is on 15 units of Levemir twice a day along with sliding scale NovoLog before meals. Fingerstick blood sugars yesterday were 270 before breakfast, 251 before lunch, 244 before dinner, and 309 at bedtime. The patient was seen by psychiatry and recommendation was made to start the taper of the Depakote. The psychiatrist is going to contact her outpatient psychiatrist to see if perhaps another drug can be used which is not associated with weight gain and diabetes. The patient was started back on Januvia 100 mg once a day yesterday. Plan: Suggest increase the patient's Levemir to 18 units twice a day. Continue sliding scale NovoLog. The patient should stay on Januvia 100 mg once a day. I discussed with her trying a small dose of metformin. She does not have an allergy to this drug but rather has a side effect of GI upset. We can begin metformin 500 mg extended release once daily before dinner. Subjective Subjective: Feels a little better Review of Systems Constitutional: Denies: chills, fever. Cardiovascular: Denies: chest pain. Respiratory: Denies: cough, short of breath. Gastrointestinal: Denies: abdominal pain, nausea, vomiting. Skin: Reports: no symptoms. Objective Last 24 Hrs of Vital Signs/I&O Vital Signs Date Time Temp Pulse Resp B/P B/P Pulse O2 O2 Flow FiO2 Mean Ox Delivery Rate 09/25 553 98.1 94 20 148/78 94 09/244 99.0 100 18 146/78 95 Room Air 09/24 1515 99.2 96 18 140/70 97 Room Air 09/25 799 96 Room Air Intake & Output 09/26 0700 05/ 0000 09/24 1600 Intake Total 120 1000 1200 Output Total 550 Balance -430 1000 1200 Intake, Oral 120 1000 1200 Output, Urine 550 Patient 251 lb Weight Vital Signs Date Time Temp Pulse Resp B/P B/P Pulse O2 O2 Flow FiO2 Mean Ox Delivery Rate 09/25 553 98.1 94 20 148/78 94 05 2214 99.0 100 18 146/78 95 Room Air 05 1515 99.2 96 18 140/70 97 Room Air 09/25 799 96 Room Air Intake & Output 09/26 799 05 0000 05/08 1600 Intake Total 120 1000 1200 Output Total 550 Balance -430 1000 1200 Intake, Oral 120 1000 1200 Output, Urine 550 Patient 251 lb Weight Physical Exam General Appearance: alert, awake, comfortable Head: normal appearance Neck: normal inspection Respiratory: normal breath sounds Cardiovascular: regular rate/rhythm Abdomen: normal bowel sounds Skin: intact Current Medications: Current Medications Sig/Domo Start time Last Medication Dose Route Stop Time Status Admin Acetaminophen 325 MG .STK-MED ONE 09/24 1522 DC PO 09/24 1523 Acetaminophen 325 MG Q6 PRN 09/22 2014 AC 09/24 PO 1523 Divalproex Sodium 1,250 MG QPM 09/24 2099 AC 09/24 PO 205 Divalproex Sodium 1,500 MG QPM 09/23 2100 DC 09/23 PO 2019 Heparin Sodium 5,000 UNIT Q8 09/22 2200 AC 09/25 (Porcine) SC 0506 Hydrocortisone 1 RUDDY BID 09/23 0900 09/24 TOP 205 Hydroxyzine HCl 50 MG TID 09/23 0900 AC 09/24 PO 205 Insulin Aspart 0 TIDAC/HS 09/23 08 AC 09/25 SC 0748 Insulin Detemir 15 UNITS BID 09/23 2099 09/24 SC 205 Levothyroxine Sodium 0.075 MG DAILY AC 09/23 0700 AC 09/25 PO 0505 Patient Medication 1 ED ONE ONE 09/24 1814 SD 09/24 [facility] ED 09/25 1815 205 Sitagliptin Phosphate 100 MG DAILY 09/25 0900 AC PO Trazodone HCl 200 MG QPM PRN 09/23 0630 AC PO Trimethobenzamide HCl 200 MG 4 TIMES/DAY PRN 09/22 2230 AC IM Vitamin A/Vitamin D 1 RUDDY BID 09/22 2315 09/24 TOP 205 Findings Pertinent Lab/Raul Results: Laboratory Tests 09/25 09/24 0630 1115 Chemistry Sodium Pending Potassium Pending Chloride Pending Carbon Dioxide Pending Anion Gap Pending BUN Pending Creatinine Pending BUN/Creatinine Ratio Pending Ammonia (9 - 30 umol/L) 18 Toxicology Valproic Acid Pending
--- NOTE | 2017-09-25 11:10 | Discharge Summary ---
Visit Information Visit Dates Admission Date: 09/22/17 Discharge Date: 09/28/17 Hospital Course Course Attending Physician: Tulio Westbrook MD Primary Care Physician: Idalia Connolly MD, I. Hospital Course: 57-year-old obese female with past history of type 2 diabetes mellitus, hyperlipidemia, hypothyroidism, GERD, bipolar disorder, with noncompliance to medication was broight in by ambulance to the ED for altered mental status from the [facility]. She was found to be in hyperosmolar state, not in DKA, and was treated aggressively in the emergency department. She was dehydrated and had lactic acidosis and tachycardia, fulfiling SIRS criteria but did not have any focus of infection, and thus no sepsis. She was managed in the general medical floor for the following issues: # Hyperglycemia likely HHS in the setting of medication noncompliance, infection Patient was aggressively fluid resuscitated first and then blood sugar adjusted with consultation from endocrinology service. She was sent to her home with Levemir flex pen 36 units once daily along with oral hypoglycemic. Patient wants to be only on oral meds which will be followed up as an out patient basis. Her oral meds were adjusted as well. # Bipolar disorder She takes Valproate which can cause weight gain (>1% to 9%), making management of DM less effective. Depakote decreased to 1250 mg daily, to be tapered as per recommendations from Psychiatry service. Of note, patient has an appointment with Dr Hadley October 07, 2017 at 3:00 pm at [facility]. # Pseudohyponatremia in the setting of hyperglycemia, resolved # Lactic acidosis, resolved # Hypokalemia, resolved # Vaginal candidiasis, on antifungal meds # FAM likely prerenal, resolved # Mixed hyperlipidemia, continued Fibrate # Hypothyroidism, continued Synthroid. Allergies: Coded Allergies: Penicillins (Severe, RASH 10/21/16) STATINS (Intermediate, HIVES 10/21/16) metformin (VAGINAL ITCHING 02/16/17) TUTU Inhibitors (Intermediate, DRY COUGH 10/21/16) Disposition Summary Disposition Principal Diagnosis: Hypoglycemia Additional Diagnosis: type 2 diabetes mellitus, hyperlipidemia, hypothyroidism, GERD, bipolar disorder , with noncompliance to medication Discharge Disposition: home health services Discharge Instructions General Discharge Information Code Status: Full Code Patient's Diet: Diabetic diet Patient's Activity: As tolerated Follow-Up Instructions/Appts: Please follow up with your PCP in one week. Please follow up with the Service Architect when you can get an appointment. We have provided you with a referral. Appointment with Dr Hadley October 07 at 3:00 pm, [facility] [phone]. Medications at Discharge Discharge Medications: Stop taking the following medications: Trazodone HCl (Trazodone HCl) 50 MG TABLET ORAL Every night Qty = 14 Prednisone (Prednisone) 20 MG TABLET ORAL TWICE DAILY Qty = 10 Hydroxyzine Hydrochloride (Atarax) 25 MG TAB ORAL THREE TIMES DAILY as needed for itchy rash Qty = 30 Fluconazole (Diflucan) 150 MG TABLET ORAL GIVE ONCE Qty = 1 Nitrofurantoin Monohyd/M-Cryst (Macrobid 100 MG Capsule) 100 MG CAPSULE ORAL TWICE DAILY Qty = 14 Divalproex Sodium (Depakote ER) 500 MG TAB.ER.24H ORAL Every night Continue taking these medications: Acetaminophen (Tylenol Extra Strength) 500 MG TABLET 2 Tablet ORAL TWICE DAILY as needed for PAIN Hydrocortisone (Anti-Itch) 1 % CREAM..G. 1 Application On the skin TWICE DAILY Qty = 60 Comments: Last Taken:09/28/17 Time:8:36 AM Phenazopyridine HCl (Pyridium) 100 MG TABLET 1 Tablet ORAL THREE TIMES DAILY Qty = 6 Comments: NOT GIVEN IN HOSP Hydroxyzine Hydrochloride (Atarax) 50 MG TAB 1 Tablet ORAL THREE TIMES DAILY Qty = 30 Comments: Last Taken:09/28/17 Time:1:45 PM Levothyroxine Sodium (Levothyroxine Sodium) 75 MCG TABLET 1 Tablet ORAL DAILY Comments: Last Taken:09/28/17 Time:5:36 AM Pioglitazone HCl (Pioglitazone HCl) 30 MG TABLET 1 Tablet ORAL DAILY Comments: Last Taken:09/28/17 Time:8:35 AM Fenofibrate Nanocrystallized (Fenofibrate) 145 MG TABLET 1 Tablet ORAL DAILY Comments: Last Taken:09/28/17 Time:8:35 AM Start taking the following new medications: Insulin Detemir (Levemir Flextouch) 100 UNIT/ML (3 ML) INSULN.PEN 36 Inj Inject into fatty tissue DAILY Qty = 1 Refills = 1 Comments: Last Taken:09/28/17 Time:11:30 AM Sitagliptin Phosphate (Januvia) 100 MG TABLET 100 Milligram ORAL DAILY Qty = 30 No Refills Comments: Last Taken:09/28/17 Time:8:35 AM Glimepiride (Glimepiride) 2 MG TABLET 4 Milligram ORAL DAILY BEFORE BREAKFAST Qty = 60 No Refills Comments: Last Taken:09/28/17 Time:5:35 AM Metformin HCl (Glucophage XR) 500 MG TAB.ER.24H 1 Tablet ORAL DAILY Qty = 30 No Refills Instructions: with food Comments: Last Taken:09/27/17 Time:5:04 PM Divalproex Sodium (Depakote ER) 250 MG TAB.ER.24H 5 Tablet ORAL Every night Qty = 60 No Refills Comments: Last Taken:09/27/17 Time:9:30 PM Lurasidone HCl (Latuda) 20 MG TABLET 1 Tablet ORAL Every night Qty = 30 No Refills Comments: Last Taken:09/28/17 Time:8:35 AM Pen Needle, Diabetic (Bd Ultra-Fine Pen Needle) 29 GAUGE X 1/2" DIS.NEEDLE 1 Inj INJECTABLE DAILY Qty = 100 No Refills Comments: please use one needle daily The following medications have been changed: Old: Trazodone HCl (Trazodone HCl) 100 MG TABLET 1 Tablet ORAL Every night as needed for insomnia Qty = 30 New: Trazodone HCl (Trazodone HCl) 100 MG TABLET 2 Tablet ORAL Every night as needed for insomnia Qty = 30 Comments: Last Taken:09/27/17 Time:10 PM Copies To: Mohsen LI,Idalia Chen MD,Cesar Attending MD Review Statement Documenting Attending: Tulio Westbrook MD Other Findings: The patient was seen and agree with plan of care upon discharge.
[2017-09-25 14:19] VITALS: BP 143/74
[2017-09-25 22:10] VITALS: BP 158/64
[2017-09-26 06:27] VITALS: BP 154/58
--- NOTE | 2017-09-26 07:13 | PN- Housestaff ---
Inez LI,[facility] 09/26/17 0713: Subjective Follow-up For: Diabetic Hyperosmolar state, secondary to noncompliance to medicine Subjective: Ms Mullen was seen and examined this morning. Resting comfortably on the chair beside her bed. States she was unable to get a good night sleep owing to the fact of trazodone was given late to her. She was able to tolerate the metformin well and has not complained of any acute side effects. Denies any abdominal pain or abdominal discomfort. Has a good appetite and is currently waiting for breakfast to be delivered. Review of Systems Constitutional: Reports: see HPI. Objective Last 24 Hrs of Vital Signs/I&O Vital Signs Date Time Temp Pulse Resp B/P B/P Pulse O2 O2 Flow FiO2 Mean Ox Delivery Rate 09/26 06 98.5 93 20 154/58 92 09/25 2210 98.1 99 20 158/64 97 Room Air 09/25 1419 98.2 105 17 143/74 97 Room Air Intake & Output 09/26 1600 09/26 0800 09/26 0000 Intake Total 220 810 Output Total 400 750 Balance -180 60 Intake, IV 10 Intake, Oral 220 800 Number 0 Bowel Movements Output, Urine 400 750 Physical Exam General Appearance: Alert, Oriented X3, Cooperative HEENT: Atraumatic Cardiovascular: Regular Rate, Normal S1, Normal S2 Lungs: Clear to Auscultation Abdomen: Normal Bowel Sounds, Soft, No Tenderness Neurological: Normal Gait, Normal Speech, Strength at 5/5 X4 Ext, Normal Tone Extremities: No Edema Current Medications: Current Medications Sig/Domo Start time Last Medication Dose Route Stop Time Status Admin Acetaminophen 325 MG Q6 PRN 09/22 2015 AC 09/24 PO 1523 Divalproex Sodium 1,250 MG QPM 09/24 2100 AC 09/25 PO 2025 Heparin Sodium 5,000 UNIT Q8 09/22 2200 AC 09/26 (Porcine) SC 0628 Hydrocortisone 1 RUDDY BID 09/23 899 AC 09/26 TOP 0800 Hydroxyzine HCl 50 MG TID 09/23 899 AC 09/26 PO 0800 Insulin Aspart 0 TIDAC/HS 09/24 799 AC 09/26 SC 0752 Insulin Detemir 3 UNITS ONCE ONE 09/25 1100 DC 09/25 SC 09/25 1101 1111 Insulin Detemir 18 UNITS BID 09/25 899 AC 09/26 SC 0800 Insulin Detemir 15 UNITS BID 09/23 2100 DC 09/25 SC 0800 Levothyroxine Sodium 0.075 MG DAILY AC 09/23 0700 AC 09/26 PO 0625 Metformin HCl 500 MG 1700 09/25 1700 AC 09/25 PO 1647 Patient Medication 1 ED ONE ONE 09/25 1215 DC 09/25 Teaching ED 09/25 1216 1323 Sitagliptin Phosphate 100 MG DAILY 09/25 899 AC 09/26 PO 0800 Trazodone HCl 150 MG .STK-MED ONE 09/25 2326 DC PO 09/25 2327 Trazodone HCl 50 MG .STK-MED ONE 09/25 2320 DC PO 09/25 2321 Trazodone HCl 200 MG QPM PRN 09/23 0630 AC 09/26 PO 0114 Trimethobenzamide HCl 200 MG 4 TIMES/DAY PRN 09/22 2230 AC IM Vitamin A/Vitamin D 1 RUDDY BID 09/22 2315 AC 09/26 TOP 0756 Assessment/Plan Assessment: Ms mullen is a 57-year-old obese female with past history of type 2 diabetes mellitus, hyperlipidemia, hypothyroidism, GERD, bipolar disorder, with noncompliance to medication including diabetic tablets who was brought into the ED for altered mental status from the [facility]. See was found to have hyperosmolar state, not in DKA, and was treated aggressively in the emergency department. She is now in general medical floor for the management of following issues: Patient was recorded as sepsis initially given her SIRS criteria and possible source of infection, but this all can be due to the fact that she was dehydrated and was having reflex tachycardia, lactic acidosis, along with possible source of infection. Tus retracting the diagnosis of sepsis. # Hyperglycemia likely HHS in the setting of medication noncompliance, infection Patient's blood sugar levels are decreasing, her anion gap has closed, the patient has been started on oral diet, endocrinology consulted, following recs. She has been started on Januvia 100 mg.Will also increase levemir to 18 units from 15. In an effort to have tighter glycemic control, also begin metformin 500 mg daily. #UTI, symptomatic Continuing CTX, pending U cultures. # Pseudohyponatremia in the setting of hyperglycemia, resolved # Lactic acidosis, resolved # Hypokalemia, resolved # Vaginal candidiasis, on antifungal meds # FAM likely prerenal in the setting of dehydration, IVF continued, will stop after adequate oral intake Cr.0.7 # Bipolar disorder She takes Valproate which can cause weight gain (>1% to 9%), making management of DM less effective. Depakote to 1250 MG daily, will conitnue taper as per recommendations from Psych. Depakote level pending Appointment with Dr Hadley October 07 at 3:00 pm. # Mixed hyperlipidemia Patient is allergic to statins, will ask Endocrine service for recs. Fibrates could be an option. # Hypothyroidism Continue Synthroid. Diet: Diabetic diet CC1 DVT ppx: SQ Heparin Code status: Full codeMs mullen is a 57-year-old obese female with past history of type 2 diabetes mellitus, hyperlipidemia, hypothyroidism, GERD, bipolar disorder, with noncompliance to medication including diabetic tablets who was brought into the ED for altered mental status from the [facility]. See was found to have hyperosmolar state, not in DKA, and was treated aggressively in the emergency department. She is now in general medical floor for the management of following issues: Patient was recorded as sepsis initially given her SIRS criteria and possible source of infection, but this all can be due to the fact that she was dehydrated and was having reflex tachycardia, lactic acidosis, along with possible source of infection. Tus retracting the diagnosis of sepsis. # Hyperglycemia likely HHS in the setting of medication noncompliance, infection The patient has been continued on oral diet, endocrinology consulted, following recs. She has been started on Januvia 100 mg.Wilcontinue levemir. Since the patient states she is not likley going to be able to take insulin, we will attempt to get better glycemic control with oral medications. Continue Metformin 500 MG ER. She tolerated this medication without any side effects. Begin pioglitazone 30 mg p.o. daily. Also begin glimepiride 2 mg p.o. daily. Sliding scale adjusted. # Pseudohyponatremia in the setting of hyperglycemia, resolved # Lactic acidosis, resolved # Hypokalemia, resolved # Vaginal candidiasis, on antifungal meds # FAM likely prerenal in the setting of dehydration, IVF continued, will stop after adequate oral intake Last Cr.0.7 # Bipolar disorder She takes Valproate which can cause weight gain (>1% to 9%), making management of DM less effective. Depakote to 1250 MG daily, will conitnue taper as per recommendations from Psych. Depakote level pending Appointment with Dr Hadley October 07 at 3:00 pm. # Mixed hyperlipidemia Patient is allergic to statins, will ask Endocrine service for recs. Fibrates could be an option. # Hypothyroidism Continue Synthroid. Diet: Diabetic diet CC1 DVT ppx: SQ Heparin Code status: Full code Problem List: 1. Hyperosmolar syndrome 2. Anxiety Pain Ratin Pain Location: NA Pain Goal: Remain pain free Pain Plan: Tylenol PRN Tomorrow's Labs & Rationales: No Labs Tulio Westbrook MD 09/26/17 1438: Attending MD Review Statement Attending Statement Attending MD Statement: examined this patient, discuss w/resident/PA/DRUG ABUSE COUNSELOR, agreed w/resident/PA/DRUG ABUSE COUNSELOR, reviewed EMR data (avail), discussed with nursing, discussed with case mgmt, amended to note Attending Assessment/Plan: The patient was seen and discussed with house staff, nursing, and case management. Endocrinology input appreciated. Dr. Alexis aware that the patient refuses insulin injections at home and will attempt transition to po meds. Tolerated low dose of Metformin yesterday evening. Will also need to evaluate what her co-pays are for medication as she states she cannot afford her meds. Will attempt to taper off of insulin if po meds are effective.
--- NOTE | 2017-09-26 07:41 | PN- Diabetes ---
Assessment/Plan Diabetes Assessment: The patient states she did not have a good night last night because she could not sleep. She took some trazodone and is very drowsy this morning. The patient is on both Levemir and NovoLog insulin. However she states that she will not take any insulin or injectables at home. She did take the dose of metformin before supper last night and did tolerate it well. However we would like the Metformin to be timed release Metformin. Plan: Suggest change metformin to metformin ER (timed release) 500 mg with supper daily. Since the patient refuses injectables at home we will try to change to oral agents for her diabetes as much as possible. At the same time we will gradually withdraw her insulin. Begin pioglitazone 30 mg p.o. daily. Also begin glimepiride 2 mg p.o. daily. Continue Januvia 100 mg p.o. daily. Change sliding scale NovoLog before meals to begin with a sugar over 200. Sliding scale NovoLog before meals should be less than 200 give no insulin, 201- 250 give 4 units NovoLog, 251 300 give 6 units NovoLog, 301-350 give 8 units NovoLog, 351-100 give 10 units NovoLog. For now continue Levemir 18 units twice a day. Subjective Subjective: Feels drowsy Review of Systems Constitutional: Denies: chills, fever. Cardiovascular: Denies: chest pain. Respiratory: Denies: cough, short of breath. Gastrointestinal: Denies: abdominal pain, nausea. Skin: Reports: no symptoms. Objective Last 24 Hrs of Vital Signs/I&O Vital Signs Date Time Temp Pulse Resp B/P B/P Pulse O2 O2 Flow FiO2 Mean Ox Delivery Rate 09/26 626 98.5 93 20 154/58 92 09/25 2209 98.1 99 20 158/64 97 Room Air 09/25 1419 98.2 105 17 143/74 97 Room Air Intake & Output 09/26 0800 09/26 0000 09/25 1600 Intake Total 743 986 3278 Output Total 400 750 Balance -651 38 0770 Intake, IV 10 10 Intake, Oral 581 249 6353 Number 0 0 Bowel Movements Output, Urine 400 750 Vital Signs Date Time Temp Pulse Resp B/P B/P Pulse O2 O2 Flow FiO2 Mean Ox Delivery Rate 09/26 626 98.5 93 20 154/58 92 05/09 2210 98.1 99 20 158/64 97 Room Air 09/25 1419 98.2 105 17 143/74 97 Room Air Intake & Output 09/26 0800 05 0000 09/25 1600 Intake Total 727 237 3262 Output Total 400 750 Balance -978 57 3785 Intake, IV 10 10 Intake, Oral 014 336 1515 Number 0 0 Bowel Movements Output, Urine 400 750 Physical Exam General Appearance: lethargic Head: normal appearance Neck: normal inspection Respiratory: normal breath sounds Abdomen: normal bowel sounds Skin: intact Current Medications: Current Medications Sig/Domo Start time Last Medication Dose Route Stop Time Status Admin Acetaminophen 325 MG Q6 PRN 09/22 2014 AC 09/24 PO 1523 Divalproex Sodium 1,250 MG QPM 09/24 2099 AC 09/25 PO 2024 Heparin Sodium 5,000 UNIT Q8 09/22 2199 AC 09/26 (Porcine) SC 06 Hydrocortisone 1 RUDDY BID 09/23 899 09/25 TOP 2023 Hydroxyzine HCl 50 MG TID 09/23 899 AC 09/25 PO 2023 Insulin Aspart 0 TIDAC/HS 09/23 08 AC 09/25 SC 1647 Insulin Detemir 3 UNITS ONCE ONE 09/25 1100 DC 09/25 SC 09/25 1101 1111 Insulin Detemir 18 UNITS BID 09/25 899 AC 09/25 SC 202 Insulin Detemir 15 UNITS BID 09/23 2100 DC 09/25 SC 0800 Levothyroxine Sodium 0.075 MG DAILY AC 09/23 0700 AC 09/26 PO 0625 Metformin HCl 500 MG 1700 09/25 1700 AC 09/25 PO 1647 Patient Medication 1 ED ONE ONE 09/25 1215 DC 09/25 Teaching ED 09/25 1216 1323 Sitagliptin Phosphate 100 MG DAILY 09/25 899 09/25 PO 0800 Trazodone HCl 150 MG .STK-MED ONE 09/25 232 DC PO 09/25 232 Trazodone HCl 50 MG .STK-MED ONE 09/26 2319 SD PO 09/25 2321 Trazodone HCl 200 MG QPM PRN 09/23 0630 09/26 PO 0114 Trimethobenzamide HCl 200 MG 4 TIMES/DAY PRN 09/22 2230 AC IM Vitamin A/Vitamin D 1 RUDDY BID 09/22 2315 09/25 TOP 2023
[2017-09-26 14:11] VITALS: BP 144/76
[2017-09-26 22:05] VITALS: BP 166/68
[2017-09-27 06:42] VITALS: BP 150/70
--- NOTE | 2017-09-27 07:34 | PN- Diabetes ---
Assessment/Plan Diabetes Assessment: The patient states she had another bad night because she could not sleep well. She is drowsy this morning. Yesterday we began glimepiride 2 mg daily along with pioglitazone. She is also on metformin extended release 500 mg with dinner. The patient is receiving Levemir 18 units twice a day and we reduced her sliding scale to start with a sugar greater than 200 before meals. The patient's blood sugars yesterday were 219 in the morning before breakfast, 291 before lunch, 227 before dinner, and 278 at bedtime. Plan: Suggest increase glimepiride to 4 mg daily starting today. Continue the present insulin doses. Continue other medications. The patient may be willing to take 1 shot of basal insulin at home. I will discuss this with her. Subjective Subjective: Did not have a good Review of Systems Constitutional: Denies: chills, fever. Cardiovascular: Denies: chest pain. Respiratory: Denies: cough, short of breath. Gastrointestinal: Denies: abdominal pain, nausea. Skin: Reports: no symptoms. Objective Last 24 Hrs of Vital Signs/I&O Vital Signs Date Time Temp Pulse Resp B/P B/P Pulse O2 O2 Flow FiO2 Mean Ox Delivery Rate 09/27 0642 97.6 88 20 150/70 94 Room Air 09/26 2205 98.6 109 18 166/68 96 Room Air 09/26 1411 97.8 103 20 144/76 98 Intake & Output 09/27 0000 09/26 1600 Intake Total 500 1200 Output Total Balance 500 1200 Intake, Oral 500 1200 Number 1 0 Bowel Movements Vital Signs Date Time Temp Pulse Resp B/P B/P Pulse O2 O2 Flow FiO2 Mean Ox Delivery Rate 09/27 0642 97.6 88 20 150/70 94 Room Air 09/26 2205 98.6 109 18 166/68 96 Room Air 09/26 1411 97.8 103 20 144/76 98 Intake & Output 09/27 0000 09/26 1600 Intake Total 500 1200 Output Total Balance 500 1200 Intake, Oral 500 1200 Number 1 0 Bowel Movements Physical Exam General Appearance: no apparent distress, alert Head: normal appearance Neck: normal inspection Respiratory: normal breath sounds Cardiovascular: regular rate/rhythm Abdomen: normal bowel sounds, soft Current Medications: Current Medications Sig/Domo Start time Last Medication Dose Route Stop Time Status Admin Acetaminophen 325 MG .STK-MED ONE 09/26 2236 DC PO 09/26 2238 Acetaminophen 325 MG Q6 PRN 09/22 2014 AC 09/26 PO 2238 Albuterol Sulfate 2 PUF Q4P PRN 09/26 204 AC INH Divalproex Sodium 1,250 MG QPM 09/24 2100 AC 09/26 PO 2227 Glimepiride 2 MG DAILY AC 09/26 0815 AC 09/27 PO 0626 Heparin Sodium 5,000 UNIT Q8 09/22 2200 AC 09/27 (Porcine) SC 0631 Hydrocortisone 1 RUDDY BID 09/23 09 09/26 TOP 2229 Hydroxyzine HCl 50 MG TID 09/23 09 AC 09/26 PO 2227 Insulin Aspart 0 TIDAC 09/26 1200 AC 09/26 SC 1736 Insulin Aspart 0 TIDAC/HS 09/23 0800 DC 09/25 SC 1647 Insulin Detemir 18 UNITS BID 09/25 0900 AC 09/26 SC 2228 Levothyroxine Sodium 0.075 MG DAILY AC 09/23 0700 AC 09/27 PO 0626 Metformin HCl 500 MG 1700 09/26 1700 AC 09/26 PO 1715 Metformin HCl 500 MG 1700 / 1700 DC 09/25 PO 1647 Patient Medication 1 ED ONE ONE 09/26 1645 DC Teaching ED 09/26 1646 Pioglitazone HCl 30 MG DAILY 09/26 09 AC 09/26 PO 0937 Sitagliptin Phosphate 100 MG DAILY 09/25 0900 AC 09/26 PO 0800 Trazodone HCl 200 MG QPM PRN 09/23 0630 09/26 PO 2230 Trimethobenzamide HCl 200 MG 4 TIMES/DAY PRN 09/22 2230 AC IM Vitamin A/Vitamin D 1 RUDDY BID 09/22 2315 09/26 TOP 2229 Findings Pertinent Lab/Raul Results: Laboratory Tests 09/27 612 Chemistry Sodium Pending Potassium Pending Chloride Pending Carbon Dioxide Pending Anion Gap Pending BUN Pending Creatinine Pending BUN/Creatinine Ratio Pending
--- NOTE | 2017-09-27 08:18 | PN- Housestaff ---
See Addendum Subjective Follow-up For: Hyperglycemia Subjective: Ms Mullen was seen and examined this morning. Reports that she was unable to sleep very much last night. She received her Trazodone on time, but then was up an hour later and did not sleep thereafter. Denies and fever, chills, nausea or vomiting. Has not had a BM for two days but declines any supplemental agents. Tolerating PO intake well. Review of Systems Constitutional: Reports: see HPI. Objective Last 24 Hrs of Vital Signs/I&O Vital Signs Date Time Temp Pulse Resp B/P B/P Pulse O2 O2 Flow FiO2 Mean Ox Delivery Rate 09/27 0642 97.6 88 20 150/70 94 Room Air 09/26 2205 98.6 109 18 166/68 96 Room Air 09/26 1411 97.8 103 20 144/76 98 Intake & Output 09/27 1600 09/27 0800 09/27 0000 Intake Total 500 Output Total Balance 500 Intake, Oral 500 Number 1 Bowel Movements Physical Exam General Appearance: Alert, Oriented X3, Cooperative Cardiovascular: Regular Rate, Normal S1, Normal S2 Lungs: Clear to Auscultation Abdomen: Normal Bowel Sounds, Soft, No Tenderness Neurological: Normal Speech Extremities: No Edema Current Medications: Current Medications Sig/Domo Start time Last Medication Dose Route Stop Time Status Admin Acetaminophen 325 MG .STK-MED ONE 09/26 2236 DC PO 09/26 2237 Acetaminophen 325 MG Q6 PRN 09/22 2014 AC 09/26 PO 223 Albuterol Sulfate 2 PUF Q4P PRN 09/26 2045 AC INH Divalproex Sodium 1,250 MG QPM 09/24 2100 AC 09/26 PO 2227 Glimepiride 4 MG DAILY AC 09/28 0700 AC PO Glimepiride 2 MG ONCE ONE 09/27 09 DC PO 09/27 0901 Glimepiride 2 MG DAILY AC 09/26 0815 DC 09/27 PO 0626 Heparin Sodium 5,000 UNIT Q8 09/22 2200 AC 09/27 (Porcine) SC 0631 Hydrocortisone 1 RUDDY BID 09/23 0900 AC 09/27 TOP 0810 Hydroxyzine HCl 50 MG TID 09/23 0900 AC 09/27 PO 0809 Insulin Aspart 0 TIDAC 09/26 1200 AC 09/27 SC 0809 Insulin Detemir 18 UNITS BID 09/25 899 AC 09/27 SC 0810 Levothyroxine Sodium 0.075 MG DAILY AC 09/23 0700 AC 09/27 PO 0626 Metformin HCl 500 MG 1700 09/26 1700 AC 09/26 PO 1715 Patient Medication 1 ED ONE ONE 09/26 1645 DC Teaching ED 09/26 1646 Pioglitazone HCl 30 MG DAILY 09/26 899 AC 09/27 PO 0809 Sitagliptin Phosphate 100 MG DAILY 09/25 899 AC 09/27 PO 0809 Trazodone HCl 200 MG QPM PRN 09/23 0630 AC 09/26 PO 2230 Trimethobenzamide HCl 200 MG 4 TIMES/DAY PRN 09/22 2230 AC IM Vitamin A/Vitamin D 1 RUDDY BID 09/22 2315 AC 09/27 TOP 0809 Last 24 Hrs of Lab/Raul Results Last 24 Hrs of Labs/Mics: Laboratory Tests 09/27/1713: Anion Gap 10, Estimated GFR > 60, BUN/Creatinine Ratio 16.3 Assessment/Plan Assessment: Ms Mullen is a 57-year-old obese female with past history of type 2 diabetes mellitus, hyperlipidemia, hypothyroidism, GERD, bipolar disorder, with noncompliance to medication including diabetic tablets who was brought into the ED for altered mental status from the [facility]. See was found to have hyperosmolar state, not in DKA, and was treated aggressively in the emergency department. She is now on the general medical floor for the management of following issues: Patient was recorded as sepsis initially given her SIRS criteria and possible source of infection, but this all can be due to the fact that she was dehydrated and was having reflex tachycardia, lactic acidosis, along with possible source of infection. Tus retracting the diagnosis of sepsis. # Hyperglycemia likely HHS in the setting of medication noncompliance, infection FS, 303, 259, 252 The patient has been continued on oral diet, endocrinology consulted, following recs. She has been started on Januvia 100 mg.Will continue levemir. Since the patient states she is not likley going to be able to take insulin, we will attempt to get better glycemic control with oral medications. Continue Metformin 500 MG ER. She tolerated this medication without any side effects. Continue pioglitazone 30 mg p.o. daily. Also begin glimepiride 4 mg p.o. daily. Sliding scale adjusted. Will speak to wing commander to ask what medications the patient can be sent home on. Will also with a glucometer and glucometer training to ensure patient can check blood sugars at home. # Pseudohyponatremia in the setting of hyperglycemia, resolved # Lactic acidosis, resolved # Hypokalemia, resolved # Vaginal candidiasis, on antifungal meds # FAM likely prerenal in the setting of dehydration, IVF continued, will stop after adequate oral intake Last Cr.0.8 # Bipolar disorder She takes Valproate which can cause weight gain (>1% to 9%), making management of DM less effective. Depakote to 1250 MG daily, will conitnue taper as per recommendations from Psych. Depakote level pending Appointment with Dr Hadley October 07 at 3:00 pm. # Mixed hyperlipidemia Continue Fibrate # Hypothyroidism Continue Synthroid. Diet: Diabetic diet CC1 DVT ppx: SQ Heparin Code status: Full code Problem List: 1. Hyperosmolar syndrome Pain Ratin Pain Location: No Pain Pain Goal: Remain pain free Pain Plan: Tylenol PRN Tomorrow's Labs & Rationales: No Labs andrea will be discharged.
--- NOTE | 2017-09-27 09:43 | Patient Discharge Instructions ---
Discharge Instructions General Discharge Information You were seen/treated for: Hypoglycemia Special Instructions: Please follow up with your PCP in one week. Please follow up with the Train Controller when you can get an appointment. We have provided you with a referral. Appointment with Dr Hadley October 07 at 3:00 pm, [facility], [place] [phone] ext [phone]. Diet Continue normal diet: No Recommended Diet: Diabetic Acute Coronary Syndrome Inclusion Criteria At DC or during hospital stay patient has or had the following: ACS DIAGNOSIS No Discharge Core Measures Meds if any: Prescribed or Continued at Discharge Meds if any: NOT Prescribed or Continued at Discharge Congestive Heart Failure Inclusion Criteria At DC or during hospital stay patient has or had the following: CHF DIAGNOSIS No Discharge Core Measures Meds if any: Prescribed or Continued at Discharge Meds if any: NOT Prescribed or Continued at Discharge Cerebrovascular accident Inclusion Criteria At DC or during hospital stay patient has or had the following: CVA/TIA Diagnosis No Discharge Core Measures Meds if any: Prescribed or Continued at Discharge Meds if any: NOT Prescribed or Continued at Discharge Venous thromboembolism Inclusion Criteria VTE Diagnosis No VTE Type NONE VTE Confirmed by (Test) NONE Discharge Core Measures - Per Current guidelines, there needs to be overlap - treatment for the first 5 days of Warfarin therapy. - If discharged on Warfarin prior to 5 days of - overlap therapy, the patient will need to be - assessed for post discharge needs including - *Post discharge parental anticoagulation - *Warfarin and/or parental anticoagulation education - *Follow up date to check INR post discharge At least 5 days overlap therapy as Inpatient No Meds if any: Prescribed or Continued at Discharge Note: Overlap Therapy is Warfarin and Anticoagulant Meds if any: NOT Prescribed or Continued at Discharge
[2017-09-27] MEDS ORDERED: FENOFIBRATE145 M1 PO (10:47)
--- NOTE | 2017-09-27 11:47 | Incdntl Nt Psy ---
Incidental Note Notation: I was able to speak with Alma's outpatient psychiatrist Dr. Hadley from [facility], [place] [phone] ext [phone]. Alma has been on several mood stabilizers and thus cannot taper depakote without other coverage. Would start latuda in-house 20 mg qdaily and obtain a depakote level in am. TOYA
[2017-09-27 14:34] VITALS: BP 132/72
[2017-09-27] MEDS ORDERED: GLIMEPIRIDE2 MG PO (14:55)
[2017-09-27] MEDS ORDERED: JANUVIA100 M1 PO (14:55)
[2017-09-27] MEDS ORDERED: GLUCOPHAGE XR500 M1 PO (14:55)
[2017-09-27] MEDS ORDERED: DEPAKOTE ER250 M1 PO (15:00)
[2017-09-27] MEDS ORDERED: LATUDA20 M1 PO (15:01)
[2017-09-27 21:33] VITALS: BP 164/74
[2017-09-28 06:37] VITALS: BP 146/52
--- NOTE | 2017-09-28 10:00 | PN- Diabetes ---
Assessment/Plan Diabetes Assessment: Blood sugars are Running high. She is on glimepiride 4 mg once a day, pioglitazone 30 mg daily, and metformin extended release 500 mg with dinner daily. In addition she remains on Levemir 18 units twice a day as well as sliding scale NovoLog. Sugar readings were yesterday to 52 before breakfast, 271 before lunch, 261 before dinner, and 283 at bedtime. This morning her fingerstick sugar before breakfast is 274. Plan: The patient states she is willing to take one shot of long-acting insulin each day in addition to her pills. She does feel kind of wobbly. However she was able to walk to the bathroom with her walker. Suggest continue the present oral medications for her diabetes.. However change her Levemir to 36 units once a day in the morning. We can discontinue the sliding scale NovoLog completely. If the patient goes home she could be sent home on one injection of Levemir per day as mentioned above as well as her present oral medications for her diabetes. She would need to be taught however to use the insulin pen. Her prescription at home for the insulin would be Levemir FlexPen dispense 5 pens with the directions to inject 36 units once daily. She will also need BD Kristan pen needles #100 with the directions to use 1 daily Subjective Subjective: Feels tired Review of Systems Constitutional: Denies: chills, fever. Cardiovascular: Denies: chest pain. Respiratory: Denies: cough, short of breath. Gastrointestinal: Denies: abdominal pain, nausea, vomiting. Skin: Reports: no symptoms. Objective Last 24 Hrs of Vital Signs/I&O Vital Signs Date Time Temp Pulse Resp B/P B/P Pulse O2 O2 Flow FiO2 Mean Ox Delivery Rate 09/28 0637 98.9 98 20 146/52 95 09/27 2133 98.3 100 19 164/74 93 Room Air 09/27 1434 98.3 88 18 132/72 98 Room Air Vital Signs Date Time Temp Pulse Resp B/P B/P Pulse O2 O2 Flow FiO2 Mean Ox Delivery Rate 09/28 0637 98.9 98 20 146/52 95 09/27 2133 98.3 100 19 164/74 93 Room Air 09/27 1434 98.3 88 18 132/72 98 Room Air Physical Exam General Appearance: alert, awake, comfortable Head: normal appearance Neck: normal inspection Respiratory: normal breath sounds Cardiovascular: regular rate/rhythm Abdomen: normal bowel sounds Extremities: normal inspection Current Medications: Current Medications Sig/Domo Start time Last Medication Dose Route Stop Time Status Admin Acetaminophen 325 MG Q6 PRN 09/22 2014 AC 09/26 PO 2238 Albuterol Sulfate 2 PUF Q4P PRN 09/26 2044 AC INH Divalproex Sodium 1,250 MG QPM 09/24 2100 AC 09/27 PO 2132 Fenofibrate 145 MG DAILY 09/27 1047 AC 09/28 PO 0835 Glimepiride 4 MG DAILY AC 09/28 07 AC 09/28 PO 0536 Heparin Sodium 5,000 UNIT Q8 09/22 2200 AC 09/28 (Porcine) SC 0536 Hydrocortisone 1 RUDDY BID 09/23 09 AC 09/28 TOP 0836 Hydroxyzine HCl 50 MG TID 09/23 09 AC 09/28 PO 0835 Insulin Aspart 0 TIDAC 09/26 1200 AC 09/28 SC 0834 Insulin Detemir 18 UNITS BID 09/25 09 AC 09/28 SC 0833 Levothyroxine Sodium 0.075 MG DAILY AC 09/23 07 AC 09/28 PO 0536 Lurasidone HCl 20 MG DAILY 09/27 1500 AC 09/28 PO 0835 Metformin HCl 500 MG 1700 09/26 1700 AC 09/27 PO 1704 Pioglitazone HCl 30 MG DAILY 09/26 09 AC 09/28 PO 0835 Sitagliptin Phosphate 100 MG DAILY 09/25 09 AC 09/28 PO 0835 Trazodone HCl 200 MG .STK-MED ONE 09/27 2150 DC PO 09/27 215 Trazodone HCl 200 MG QPM PRN 09/23 0530 AC 09/27 PO 215 Trimethobenzamide HCl 200 MG 4 TIMES/DAY PRN 09/22 2230 AC IM Vitamin A/Vitamin D 1 RUDDY BID 09/22 2315 AC 09/28 TOP 0835 Findings Pertinent Lab/Raul Results: Laboratory Tests 09/28 09/27 0705 0613 Chemistry Sodium (137 - 145 mmol/L) 137 Potassium (3.5 - 5.1 mmol/L) 4.0 Chloride (98 - 107 mmol/L) 97 L Carbon Dioxide (22 - 30 mmol/L) 30 Anion Gap (5 - 16) 10 BUN (7 - 17 mg/dL) 13 Creatinine (0.5 - 1.0 mg/dL) 0.8 Estimated GFR (>60 ml/min) > 60 BUN/Creatinine Ratio (7 - 25 %) 16.3 Toxicology Valproic Acid (50 - 120 ug/mL) 64.8
--- NOTE | 2017-09-28 10:26 | PN- Housestaff ---
Lauren LI,Yvonne 09/28/17 1026: Subjective Follow-up For: Hyperglycemia Subjective: Patient seen and examined at bedside. She was tearful today as she wanted to go home today. She denies nausea, vomiting, dizziness, weakness, chest pain. Review of Systems Constitutional: Reports: see HPI. Objective Last 24 Hrs of Vital Signs/I&O Vital Signs Date Time Temp Pulse Resp B/P B/P Pulse O2 O2 Flow FiO2 Mean Ox Delivery Rate 09/28 0637 98.9 98 20 146/52 95 09/27 2133 98.3 100 19 164/74 93 Room Air 09/27 1434 98.3 88 18 132/72 98 Room Air Physical Exam General Appearance: Alert, Oriented X3, Cooperative, No Acute Distress Cardiovascular: Regular Rate, Normal S1, Normal S2, No Murmurs Lungs: Clear to Auscultation Abdomen: Soft, No Tenderness, No Hepatospenomegaly Neurological: Normal Speech, Strength at 5/5 X4 Ext, Normal Tone, Sensation Intact Extremities: No Cyanosis, No Edema, Normal Pulses Current Medications: Current Medications Sig/Domo Start time Last Medication Dose Route Stop Time Status Admin Acetaminophen 325 MG Q6 PRN 09/22 2014 AC 09/26 PO 2238 Albuterol Sulfate 2 PUF Q4P PRN 09/26 2044 AC INH Divalproex Sodium 1,250 MG QPM 09/24 2100 AC 09/27 PO 2132 Fenofibrate 145 MG DAILY 09/27 1047 AC 09/28 PO 0835 Glimepiride 4 MG DAILY AC 09/28 0700 AC 09/28 PO 0536 Heparin Sodium 5,000 UNIT Q8 09/22 2200 AC 09/28 (Porcine) SC 0536 Hydrocortisone 1 RUDDY BID 09/23 0900 AC 09/28 TOP 0836 Hydroxyzine HCl 50 MG TID 09/23 0900 AC 09/28 PO 0835 Insulin Aspart 0 TIDAC 09/26 1200 DC 09/28 SC 0834 Insulin Detemir 36 UNITS DAILY 09/29 0900 AC SC Insulin Detemir 18 UNITS ONE ONE 09/28 1100 DC 09/28 SC 09/28 1101 1149 Insulin Detemir 18 UNITS BID 09/25 0900 DC 09/28 SC 0833 Levothyroxine Sodium 0.075 MG DAILY AC 09/23 0700 AC 05/12 PO 0536 Lurasidone HCl 20 MG DAILY 09/27 1500 AC 09/28 PO 0835 Metformin HCl 500 MG 1700 09/26 1700 AC 09/27 PO 1704 Pioglitazone HCl 30 MG DAILY 09/26 0900 AC 09/28 PO 0835 Sitagliptin Phosphate 100 MG DAILY 09/25 0900 AC 09/28 PO 0835 Trazodone HCl 200 MG .STK-MED ONE 09/27 2151 DC PO 09/27 215 Trazodone HCl 200 MG QPM PRN 09/23 0630 AC 09/27 PO 215 Trimethobenzamide HCl 200 MG 4 TIMES/DAY PRN 09/22 2230 AC IM Vitamin A/Vitamin D 1 RUDDY BID 09/22 2315 AC 09/28 TOP 0835 Last 24 Hrs of Lab/Raul Results Last 24 Hrs of Labs/Mics: Laboratory Tests 09/28/17 0705: Valproic Acid 64.8 Assessment/Plan Assessment: Ms Mullen is a 57-year-old obese female with past history of type 2 diabetes mellitus, hyperlipidemia, hypothyroidism, GERD, bipolar disorder, with noncompliance to medication including diabetic tablets who was brought into the ED for altered mental status from the [facility]. See was found to have hyperosmolar state, not in DKA, and was treated aggressively in the emergency department. Assessment and plan Patient was recorded as sepsis initially given her SIRS criteria and possible source of infection, but this all can be due to the fact that she was dehydrated and was having reflex tachycardia, lactic acidosis, along with possible source of infection. Tus retracting the diagnosis of sepsis. # Hyperglycemia likely HHS in the setting of medication noncompliance, infection FS The patient has been continued on oral diet, endocrinology consulted.dcs engineer wanted to send her home with Levemir flex pen 36 units once daily along with oral hypoglycemic..Patient agreed to the plan. Patient needs education regarding insulin injection and diet. Since the patient states she is not likley going to be able to take insulin, we will attempt to get better glycemic control with oral medications. Continue Metformin 500 MG ER. She tolerated this medication without any side effects. Continue pioglitazone 30 mg p.o. daily and glimepiride 4 mg p.o. daily. Sliding scale adjusted. # Pseudohyponatremia in the setting of hyperglycemia, resolved # Lactic acidosis, resolved # Hypokalemia, resolved # Vaginal candidiasis, on antifungal meds # FAM likely prerenal in the setting of dehydration, IVF continued, will stop after adequate oral intake Last Cr.0.8 # Bipolar disorder She takes Valproate which can cause weight gain (>1% to 9%), making management of DM less effective. Depakote to 1250 MG daily, will conitnue taper as per recommendations from Psych. Depakote level pending Appointment with Dr Hadley October 07 at 3:00 pm. # Mixed hyperlipidemia Continue Fibrate # Hypothyroidism Continue Synthroid. Diet: Diabetic diet CC1 DVT ppx: SQ Heparin Code status: Full code Plan-physical therapy requests home PT. Patient is still wobbly. Patient is a potential discharge tomorrow. Problem List: 1. Hyperosmolar syndrome Pain Ratin Pain Location: none Pain Goal: Remain pain free Pain Plan: Tylenol Tomorrow's Labs & Rationales: bep Cedric LI,[facility] 09/28/17 1451: Attending MD Review Statement Attending Statement Attending MD Statement: examined this patient, discuss w/resident/PA/ANIMAL PHYSIOLOGY TEACHER, agreed w/resident/PA/ANIMAL PHYSIOLOGY TEACHER, reviewed EMR data (avail), discussed with nursing, discussed with case mgmt, amended to note Attending Assessment/Plan: patient seen and examined, offers no complaints. Pt has been seen by Endo and they made recommendations about her diabetic regimen for discharge home. Nursing expressed concern about patient vomited once she got up she was fine. Patient absolutely refuses to go to any rehabilitation. Recommend insulin teaching. Patient will be discharged home on once daily dosing of Levemir as well as oral hypoglycemic agents as recommended by endocrinology. The rest of her home medications will be continued. She also follows up with psych. Patient upon discharge should follow-up with primary care doctor, endocrinology and psychiatry. NOTE; PHARMACY CALLED LATER AND ASKING FOR DIRECTIONS FOR INSULIN LEVEMIR. I CLARIFIED THAT IT SHOULD BE 36 UNITS SQ DAILY AND 5 FLEX PENS FOR LEVEMIR.
[2017-09-28] MEDS ORDERED: LEVEMIR FL100 UNIT/1 SC ×2 (10:37→15:39)
[2017-09-28] MEDS ORDERED: BD ULTRA-FINE1 EACH INJ (10:57)
[2017-09-28 14:51] VITALS: BP 140/66
--- NOTE | 2017-10-01 12:36 | PN- Att Addend ---
Attending Addendum Attending Brief Note S: I was informed by the attending physician Dr. Westbrook that this patient had been discharged without oral hypoglycemics sent to the pharmacy. B: Ms Mullen is a 57-year-old obese female with past history of type 2 diabetes mellitus, hyperlipidemia, hypothyroidism, GERD, bipolar disorder, with noncompliance to medication including diabetic tablets who was brought into the ED for altered mental status from the [facility]. See was found to have hyperosmolar state. She was discharged from the hospital on September 28. A/R: I opened up the CMR and have renewed and sent scripts for the following medications which have been sent to [facility]: Pioglitazone 30 mg daily. Glimepiride 4 mg daily. Sitagliptin 100 mg daily. Metformin 500 mg extended release 24 hours. I called the patients home and spoke to her son Lb (patient was in the shower) to let him know that these medications have been sent. I asked him to please pick them up and begin using them at the soonest. CC: Dr Dariana Aguilar
[2017-10-01] MEDS ORDERED: PIOGLITAZONE HC30 M1 PO (12:39)
[2017-10-01] MEDS ORDERED: GLUCOPHAGE XR500 M1 PO (12:39)
[2017-10-01] MEDS ORDERED: GLIMEPIRIDE2 MG PO (12:39)
[2017-10-01] MEDS ORDERED: JANUVIA100 M1 PO (12:39)
== END 2017-09-28 15:05 | disposition home health service (06) | DRG 638 ==
LOC: ERH 12:16 → 2NB 20:09 → ERHI 20:09 → ENRESERV 21:17 → ENTRNSPT 21:46 → EDTRNSPTSTS 21:50 → 2NB 22:07 → CMPTRNSPT 22:28 → 2NB 09-23 23:55 → ENPENDDIS 09-28 14:09 → ENTRNSPT 09-28 14:42 → EDTRNSPT 09-28 15:00 → EDTRNSPTSTS 09-28 15:00 → 2NB 09-28 15:05 → CMPTRNSPT 09-28 15:08
PROVIDERS: Physician Assistant; Student in an Organized Health Care Education/Training Program
DX: E11.00 Type 2 diabetes mellitus with hyperosmolarity without nonketotic hyperglycemic-hyperosmolar coma (NKHHC) (principal); N17.9 Acute kidney failure, unspecified; E87.2 Acidosis; Z68.41 Body mass index [BMI] 40.0-44.9, adult; B37.3 Candidiasis of vulva and vagina; N39.0 Urinary tract infection, site not specified; E86.0 Dehydration; E11.65 Type 2 diabetes mellitus with hyperglycemia; F31.9 Bipolar disorder, unspecified; E78.2 Mixed hyperlipidemia; I10 Essential (primary) hypertension; E87.6 Hypokalemia; E03.9 Hypothyroidism, unspecified; E66.9 Obesity, unspecified; K21.9 Gastro-esophageal reflux disease without esophagitis; Z88.8 Allergy status to other drugs, medicaments and biological substances; Z88.0 Allergy status to penicillin; Z91.14 Patient's other noncompliance with medication regimen
CPT/HCPCS: 2NBSP; 36415; 36592; 80307; 81001; 82436; 87040; 87086; 93005; 93010; 96374; 96376; 97110-GO; 97116-GO; 97161-GP; 97530-GO; G0480; J1644; J1815; J3490

== ENCOUNTER 2017-10-12 20:04 | Inpatient (IN) | payer OTHER, MEDICARE ==
[~2017-10-12] VITALS: Ht 160 cm; Wt 111.6 kg
[~2017-10-12 20:04] MED LIST changes: +BD ULTRA-FINE1 EACH INJ; +DEPAKOTE ER250 M1 PO; +DEPAKOTE ER500 M1 PO; +FENOFIBRATE145 M1 PO; +GLIMEPIRIDE2 MG PO; +GLUCOPHAGE XR500 M1 PO; +JANUVIA100 M1 PO; +LATUDA20 M1 PO; +LEVEMIR FL100 UNIT/1 SC; +LEVOTHYROXINE75 MCG PO; +PIOGLITAZONE HC30 M1 PO
--- NOTE | 2017-10-12 20:45 | ED GENERAL ADULT ---
History of Present Illness General Chief Complaint: Altered Mental Status Stated Complaint: PER SON AMS Source: family, old records Exam Limitations: confusion Vital Signs & Intake/Output Vital Signs & Intake/Output Vital Signs Date Time Temp Pulse Resp B/P B/P Pulse O2 O2 Flow FiO2 Mean Ox Delivery Rate 10/12 2232 98.2 77 18 126/74 96 Room Air 10/12 2030 96.8 79 18 129/62 96 Room Air Allergies Coded Allergies: Penicillins (Severe, RASH 10/21/16) STATINS (Intermediate, HIVES 10/21/16) metformin (VAGINAL ITCHING 02/16/17) TUTU Inhibitors (Intermediate, DRY COUGH 10/21/16) Reconcile Medications Acetaminophen (Tylenol Extra Strength) 500 MG TABLET 2 TAB PO BID PRN PAIN ( Reported) Divalproex Sodium (Depakote ER) 250 MG TAB.ER.24H 5 TAB PO QPM Mood Stabilizer Fenofibrate Nanocrystallized (Fenofibrate) 145 MG TABLET 1 TAB PO DAILY HLD ( Reported) Glimepiride 2 MG TABLET 4 MG PO DAILY AC DM . Hydrocortisone (Anti-Itch) 1 % CREAM..G. 1 RUDDY TOP BID itchy rash Hydroxyzine Hydrochloride (Atarax) 50 MG TAB 1 TAB PO TID ITCHING Insulin Detemir (Levemir Flextouch) 100 UNIT/ML (3 ML) INSULN.PEN 36 INJ SC DAILY diabetes Levothyroxine Sodium 75 MCG TABLET 1 TAB PO DAILY HypoTSH (Reported) Lurasidone HCl (Latuda) 20 MG TABLET 1 TAB PO QPM Mood Stabilizer Metformin HCl (Glucophage XR) 500 MG TAB.ER.24H 1 TAB PO DAILY DM .with food Pen Needle, Diabetic (Bd Ultra-Fine Pen Needle) 29 GAUGE X 1/2" DIS.NEEDLE 1 INJ INJ DAILY diabetes Phenazopyridine HCl (Pyridium) 100 MG TABLET 1 TAB PO TID burnings Pioglitazone HCl 30 MG TABLET 1 TAB PO DAILY DM Sitagliptin Phosphate (Januvia) 100 MG TABLET 100 MG PO DAILY DM . Trazodone HCl 100 MG TABLET 2 TAB PO QPM PRN insomnia Triage Note: PT FROM HOME C/O AMS. PT WAS SEEN HERE 3 WEEKS PRIOR FOR DKA. PER PTS SON PT WAS NODDING OFF TODAY WHILE AT THE DINNER TABLE, AMS, AND NOT WANTING TO EAT. PT ARRIVED A&0X2, PT UNABLE TO ANSWER WHAT YEAR IT IS. PTS VSS. BSG IN TRIAGE 147. Triage Nurses Notes Reviewed? yes HPI: Patient brought in by her family for change of mental status. Patient is a diabetic as well as has underlying psychiatric illness. Patient has been compliant with her medications. Family states that this is similar to a prior episode when her blood sugar was very high. Patient is a and O 2. Patient offers no current complaints. Past History Travel History Traveled to [place] past 21 day No Medical History Any Pertinent Medical History? see below for history Neurological: NONE EENT: NONE Cardiovascular: hypertension Respiratory: NONE Gastrointestinal: NONE Hepatic: NONE Renal: NONE Musculoskeletal: osteoarthritis Psychiatric: bipolar disease Endocrine: NIDDM Blood Disorders: NONE Cancer(s): NONE HIP HOP PERFORMERS/Reproductive: NONE History of MRSA: No History of VRE: No History of CDIFF: No Surgical History Surgical History: KNEE REPLACEMENT Psychosocial History Who do you live with Son Services at Home None What is your primary language Swedish Tobacco Use: Quit >30 days ago ETOH Use: denies use Illicit Drug Use: denies illicit drug use Family History Hx Contributory? No Review of Systems Review of Systems Constitutional: Reports: see HPI. Neurological/Psychological: Reports: see HPI. Physical Exam Physical Exam General Appearance: well developed/nourished, awake, moderate distress Head: atraumatic, normal appearance Eyes: Bilateral: PERRL, EOMI. Ears, Nose, Throat: normal pharynx, normal ENT inspection, hearing grossly normal Neck: normal inspection, supple, full range of motion Respiratory: normal breath sounds, chest non-tender, no respiratory distress, lungs clear Cardiovascular: regular rate/rhythm, normal peripheral pulses Gastrointestinal: normal bowel sounds, soft, non-tender, no organomegaly Back: normal inspection, normal range of motion Extremities: normal inspection, normal capillary refill, normal range of motion, no edema Neurologic/Psych: no motor/sensory deficits, awake, A&O X 2 Skin: intact, normal color, warm/dry Core Measures ACS in differential dx? No CVA/TIA Diagnosis: No Sepsis Present: No Sepsis Focused Exam Completed? No Progress Differential Diagnoses I considered the following diagnoses in my evaluation of the patient: [ Electrolyte abnormality, CVA, AMI, UTI, sepsis] Plan of Care: Orders Procedure Date/time Status LACTIC ACID 10/12 2344 Active LACTIC ACID 10/12 2044 Complete Add-on Test (ER Only) 10/13 2043 Active Telemetry/Landscape Crew Leader 10/13 2043 Active EKG 10/13 2043 Active ARTERIAL BLOOD GAS (GEN) 10/12 2040 Complete URINE DRUGS OF ABUSE 10/12 2036 Active URINALYSIS 10/12 2036 Active TROPONIN LEVEL 10/12 2036 Complete ETHANOL 10/12 2036 Complete DEPAKOTE LEVEL 10/12 2036 Complete COMPREHENSIVE METABOLIC PANEL 10/12 2036 Complete CBC WITHOUT DIFFERENTIAL 10/12 2036 Complete Current Medications Sig/Domo Start time Last Medication Dose Stop Time Status Admin Sodium Chloride 1,000 ML BOLUS ONE 10/12 2299 UNVr (Normal Saline 0.9%) 10/12 235 Laboratory Tests 10/12/172114: Lactic Acid 1.4 10/12/172114: Anion Gap 12, Estimated GFR 33 L, BUN/Creatinine Ratio 21.3, Glucose 138 H, Calcium 9.8, Total Bilirubin 0.4, AST 13 L, ALT 17, Alkaline Phosphatase 43, Troponin I < 0.01, Total Protein 7.0, Albumin 4.0, Globulin 3.0, Albumin/ Globulin Ratio 1.3, CBC w Diff NO MAN DIFF REQ, RBC 4.16 L, MCV 85.9, MCH 28.7, MCHC 33.4, RDW 14.9 H, MPV 9.2, Gran % 50.4, Lymphocytes % 38.6, Monocytes % 10.0 H, Eosinophils % 0.5, Basophils % 0.5, Absolute Granulocytes 2.3, Absolute Lymphocytes 1.7, Absolute Monocytes 0.4, Absolute Eosinophils 0, Absolute Basophils 0, Valproic Acid 119.6, Serum Alcohol < 10.0 10/12/172109: pH 7.53 H, pCO2 29 L, pO2 113 H, HCO3 24, ABG O2 Sat (Measured) 98.0, Carboxyhemoglobin 0.1 L, O2 Concentration % RA, O2 Delivery Method RA, Phlebotomy Draw Site RIGHT RADIAL Diagnostic Imaging: Viewed by Me: Radiology Read, CT Scan. Discussed w/RAD: Radiology Read, CT Scan. Radiology Impression: PATIENT: JARRED PATEL PRESENT AGE: 57 PATIENT ACCOUNT NO: [id number] : 58 LOCATION: [facility] ORDERING PHYSICIAN: Jimbo Rodriguez MD SERVICE DATE: 10/12/17-2036 EXAM TYPE: CAT - CT HEAD WO IV CONTRAST EXAMINATION: CT HEAD WITHOUT CONTRAST CLINICAL INFORMATION: Mental status change COMPARISON: 02/16/2017 and 09/22/2017 CT scans TECHNIQUE: Contiguous axial imaging was performed from the skull base to vertex without intravenous administration of contrast. DLP: 620.92 mGy-cm FINDINGS: There is no evidence of acute intracranial hemorrhage or territorial infarction. No abnormal mass effect or midline shift is seen. Pierre to white matter differentiation is well preserved. No extra-axial fluid collections are identified. The ventricles are normal in size. No acute skull fracture. The mastoid air cells and visualized portions of the paranasal sinuses are well aerated. IMPRESSION: No acute intracranial pathology. DICTATED BY: Rose Neely MD DATE/TIME DICTATED:10/12/172157 BRAILLE CODER:SANTOSH DATE/TIME TRANSCRIBED:10/12/172157 CONFIDENTIAL, DO NOT COPY WITHOUT APPROPRIATE AUTHORIZATION. <Electronically signed in Other Vendor System> SIGNED BY: Rose Neely MD 10/12/172206 CXR Impression: PATIENT: JARRED PATEL PRESENT AGE: 57 PATIENT ACCOUNT NO: [id number] : 58 LOCATION: [facility] ORDERING PHYSICIAN: Jimbo Rodriguez MD SERVICE DATE: 10/12/17 EXAM TYPE: RAD - XRY- PORTABLE CHEST XRAY EXAMINATION: XR PORTABLE CHEST CLINICAL INFORMATION: Mental status change COMPARISON: 02/16/2017 chest x-ray TECHNIQUE: Portable frontal view of the chest was obtained. FINDINGS: The cardiomediastinal silhouette and pulmonary vascularity are normal. The lungs are normally expanded and clear. No sizable pleural effusion. No pneumothorax. The visualized bones are unremarkable. IMPRESSION: No acute cardiopulmonary findings. DICTATED BY: Rose Neely MD DATE/TIME DICTATED:10/12/172203 BRAILLE CODER:SANTOSH DATE/ TIME TRANSCRIBED:10/12/172203 CONFIDENTIAL, DO NOT COPY WITHOUT APPROPRIATE AUTHORIZATION. <Electronically signed in Other Vendor System> SIGNED BY: Rose Neely MD 10/12/172207 Initial ED EKG: NSR, no ST T wave changes Prior EKG: unchanged Departure Departure Disposition: STILL A PATIENT Condition: Stable Clinical Impression Primary Impression: Acute renal injury Secondary Impressions: Acute delirium Referrals: Mohsen LI,Idalia Thurston (PCP/Family) Departure Forms: Customer Survey General Discharge Information Admission Note Spoke With: Lizette Hutchison MD Documentation of Exam: Documentation of any treatments & extenuating circumstances including Concerns Regarding Discharge (functional status, medication knowledge or non-compliance, living conditions, etc.) that warrant an admission rather than observation: [IV fluids, hold her metformin, hold Depakote, psychiatric consultation, renal consultation] Critical Care Note Critical Care Note Critical Care Time: non-applicable
[2017-10-12 21:21] LABS: ABSOLUTE BASOPHIL COUNT 0 /CUMM (0.0-0.2); ABSOLUTE EOSINOPHIL COUNT 0 /CUMM (0.0-0.7); ABSOLUTE GRANULOCYTE CT 2.3 /CUMM (1.4-6.5); ABSOLUTE LYMPH COUNT 1.7 /CUMM (1.2-3.4); ABSOLUTE MONOCYTE COUNT 0.4 /CUMM (0.10-0.60); BASOPHIL % 0.5 % (0.0-2.0); EOSINOPHIL % 0.5 % (0-5); HEMATOCRIT 35.7 % (37-47); MEAN CORPUSCULAR HGB 28.7 PG (27.0-31.0); MEAN CORPUSCULAR HGB CONC 33.4 G/DL (33.0-37.0); MEAN CORPUSCULAR VOLUME 85.9 FL (81.0-99.0); MEAN PLATELET VOLUME 9.2 FL (7.4-10.4); PLATELET COUNT 161 /CUMM (130-400); RBC DISTRIBUTION WIDTH 14.9 % (11.5-14.5); RED BLOOD CELL CT 4.16 /CUMM (4.20-5.40); WHITE BLOOD CELL COUNT 4.5 /CUMM (4.8-10.8)
[2017-10-12 21:48] LABS: GRANULOCYTE % 50.4 % (42.2-75.2)
--- NOTE | 2017-10-12 22:07 | CT SCAN REPORT ---
EXAMINATION: CT HEAD WITHOUT CONTRAST CLINICAL INFORMATION: Mental status change COMPARISON: 02/16/2017 and 09/22/2017 CT scans TECHNIQUE: Contiguous axial imaging was performed from the skull base to vertex without intravenous administration of contrast. DLP: 620.92 mGy-cm FINDINGS: There is no evidence of acute intracranial hemorrhage or territorial infarction. No abnormal mass effect or midline shift is seen. Pierre to white matter differentiation is well preserved. No extra-axial fluid collections are identified. The ventricles are normal in size. No acute skull fracture. The mastoid air cells and visualized portions of the paranasal sinuses are well aerated. IMPRESSION: No acute intracranial pathology.
--- NOTE | 2017-10-12 22:08 | RADIOLOGY REPORT ---
EXAMINATION: XR PORTABLE CHEST CLINICAL INFORMATION: Mental status change COMPARISON: 02/16/2017 chest x-ray TECHNIQUE: Portable frontal view of the chest was obtained. FINDINGS: The cardiomediastinal silhouette and pulmonary vascularity are normal. The lungs are normally expanded and clear. No sizable pleural effusion. No pneumothorax. The visualized bones are unremarkable. IMPRESSION: No acute cardiopulmonary findings.
--- NOTE | 2017-10-12 22:58 | History & Physical ---
Ana Sutton 10/12/17 3519: General Information and HPI MD Statement: I have seen and personally examined JARRED PATEL and documented this H&P. The patient is a 57 year old F who presented with a patient stated chief complaint of [AMS]. Source of Information: patient, old records Exam Limitations: confusion History of Present Illness: Ms. Patel is a 57yo F w/ PMH of type 2 diabetes mellitus, hyperlipidemia, hypothyroidism, GERD, bipolar disorder, osteoarthritis with right knee replacements, presented with altered mental status tonight around dinner per family member (son). Patient was brought into the ER by the son and later the presented however he has not seen her for 2 weeks due to probation. Patient was alert and oriented to time/place/birthday during our clinical interaction however she appeared to be in slow speech and occasionally frowning, however denied that she was in pain or any discomfort. Patient was conversational but broken in words. She remembered that she was not eating her dinner and then the son brought her here. She remember that after last discharge from [facility] for DKA, she resumed going to [employer] on a regular basis, and had been compliant with all her diabetic medications. During our clinical interaction, patient denied recent travel/sick contacts, fever/lightheadedness/diaphoresis/night sweat/weight change/cough/SOB/Chest Pain /Palpitation/Abdominal pain/bowel movement or urinary abnormality however she was incontinent, or other skin/musculoskeletal/neurological/mood disorders, or dietary/appetite change. Patient's family members presented after we saw the patient in ER, given pretty much the same story as above, and said that patient was starting acting not at baseline starting today. At baseline, son endorsed that patient had some tremor and chronical imbalance in walking, however stated that patient was a bit "slurred speech" compared to baseline. Allergies/Medications Allergies: Coded Allergies: Penicillins (Severe, RASH 10/21/16) STATINS (Intermediate, HIVES 10/21/16) metformin (VAGINAL ITCHING 02/16/17) TUTU Inhibitors (Intermediate, DRY COUGH 10/21/16) Home Med list Acetaminophen (Tylenol Extra Strength) 500 MG TABLET 2 TAB PO BID PRN PAIN ( Reported) Divalproex Sodium (Depakote ER) 250 MG TAB.ER.24H 5 TAB PO QPM Mood Stabilizer Fenofibrate Nanocrystallized (Fenofibrate) 145 MG TABLET 1 TAB PO DAILY HLD ( Reported) Glimepiride 2 MG TABLET 4 MG PO DAILY AC DM . Hydrocortisone (Anti-Itch) 1 % CREAM..G. 1 RUDDY TOP BID itchy rash Hydroxyzine Hydrochloride (Atarax) 50 MG TAB 1 TAB PO TID ITCHING Insulin Detemir (Levemir Flextouch) 100 UNIT/ML (3 ML) INSULN.PEN 36 INJ SC DAILY diabetes Levothyroxine Sodium 75 MCG TABLET 1 TAB PO DAILY HypoTSH (Reported) Lurasidone HCl (Latuda) 20 MG TABLET 1 TAB PO QPM Mood Stabilizer Metformin HCl (Glucophage XR) 500 MG TAB.ER.24H 1 TAB PO DAILY DM .with food Phenazopyridine HCl (Pyridium) 100 MG TABLET 1 TAB PO TID burnings Pioglitazone HCl 30 MG TABLET 1 TAB PO DAILY DM Sitagliptin Phosphate (Januvia) 100 MG TABLET 100 MG PO DAILY DM . Trazodone HCl 100 MG TABLET 2 TAB PO QPM PRN insomnia Past History Travel History Traveled to [place] past 21 day No Medical History Neurological: NONE EENT: NONE Cardiovascular: hypertension Respiratory: NONE Gastrointestinal: NONE Hepatic: NONE Renal: NONE Musculoskeletal: osteoarthritis Psychiatric: bipolar disease Endocrine: NIDDM Blood Disorders: NONE Cancer(s): NONE JAVA TECH/Reproductive: NONE History of MRSA: No History of VRE: No History of CDIFF: No Surgical History Surgical History: KNEE REPLACEMENT Past Family/Social History Psychosocial History Services at Home: None ETOH Use: denies use Illicit Drug Use: denies illicit drug use Functional Ability ADLs Independent: dressing, eating, toileting, bathing. Ambulation: cane IADLs Independent: shopping, housework, finances, food prep, telephone, transportation , medication admin. Review of Systems Review of Systems Constitutional: Reports: see HPI. Exam & Diagnostic Data Last 24 Hrs of Vital Signs/I&O Vital Signs Date Time Temp Pulse Resp B/P B/P Pulse O2 O2 Flow FiO2 Mean Ox Delivery Rate 10/12 2232 98.2 77 18 126/74 96 Room Air 10/12 2030 96.8 79 18 129/62 96 Room Air Physical Exam General Appearance Alert, Oriented X3, Cooperative, No Acute Distress Skin No Rashes, No Breakdown, No Significant Lesion Skin Temp/Moisture Exam: Warm/Dry Sepsis Skin Exam (color): Normal for Ethnicity HEENT Atraumatic, PERRLA Neck Supple, No JVD Lymphatic Axillary nl, Cervical nl Cardiovascular Regular Rate Lungs Clear to Auscultation, Normal Air Movement Abdomen Normal Bowel Sounds, Soft, No Tenderness Neurological Strength at 5/5 X4 Ext, Sensation Intact, Uncontrolled facial movement with smacking lips/frowning/slow speech, questionable tardive dyskinesis Extremities No Clubbing, No Cyanosis, Normal Pulses, trace edematous BLE Last 24 Hrs of Labs/Raul: Laboratory Tests 10/13/1713: Urine Color Pending, Urine Clarity Pending, Urine pH Pending, Ur Specific Newberg Pending, Urine Protein Pending, Urine Ketones Pending, Urine Nitrite Pending, Urine Bilirubin Pending, Urine Urobilinogen Pending, Ur Leukocyte Esterase Pending, Ur Microscopic Pending, Urine Hemoglobin Pending, Urine Glucose Pending 10/13/1713: Methadone Screen Pending, Barbiturate Screen Pending, Ur Phencyclidine Scrn Pending, Amphetamines Screen Pending, U Benzodiazepines Scrn Pending, Urine Cocaine Screen Pending, Urine Cannabis Screen Pending, Ur Random Creatinine Pending, Ur Random Sodium Pending, Ur Random Potassium Pending, Fraction Sodium Excret Pending 10/12/172114: Lactic Acid 1.4 10/12/172114: Anion Gap 12, Estimated GFR 33 L, BUN/Creatinine Ratio 21.3, Glucose 138 H, Calcium 9.8, Total Bilirubin 0.4, AST 13 L, ALT 17, Alkaline Phosphatase 43, Troponin I < 0.01, Total Protein 7.0, Albumin 4.0, Globulin 3.0, Albumin/ Globulin Ratio 1.3, CBC w Diff NO MAN DIFF REQ, RBC 4.16 L, MCV 85.9, MCH 28.7, MCHC 33.4, RDW 14.9 H, MPV 9.2, Gran % 50.4, Lymphocytes % 38.6, Monocytes % 10.0 H, Eosinophils % 0.5, Basophils % 0.5, Absolute Granulocytes 2.3, Absolute Lymphocytes 1.7, Absolute Monocytes 0.4, Absolute Eosinophils 0, Absolute Basophils 0, Valproic Acid 119.6, Serum Alcohol < 10.0 05/26/18 2110: pH 7.53 H, pCO2 29 L, pO2 113 H, HCO3 24, ABG O2 Sat (Measured) 98.0, Carboxyhemoglobin 0.1 L, O2 Concentration % RA, O2 Delivery Method RA, Phlebotomy Draw Site RIGHT RADIAL 10/12/172036: Ur Random Creatinine Cancelled, Ur Random Sodium Cancelled, Ur Random Potassium Cancelled, Fraction Sodium Excret Cancelled Assessment/Plan Assessment: On admission, Vitals: Stable, afebrile, BP 126/74, 96% on room air -CBC: W BC 4.5, H/H 11.9/35.7, -BMP: Glucose 138, elevated creatinine 1.6 compared to baseline of 0.8 a month ago, -CXR/head CT: No acute -EKG: NSR w/o significant ST-T abnormalities. -Interventions in ER: IV normal saline 1 L bolus, not given due to hard-stick Problem list & Assessment: #Altered mental status #Acute kidney injury secondary to dehydration #Questionable tardive dyskinesia from meds overdose including Latuda/Valporic acid (119.5 almost toxic level considering patient's FAM)? #PMH of type 2 diabetes mellitus, hyperlipidemia, hypothyroidism, GERD, bipolar disorder, osteoarthritis with right knee replacements Hospital Course: - Admit to general medicine, vitals per protocol DKA/no anion gap/unknown acetone as no urine was collected. Will continue monitor and hold all home hypoglycemics. - Hold valporic acid, and recheck in 24hours - Hold Latuda, and monitor on patient's facial movement. - Continue all other home meds - Patient passed the bedside swallow eval, however based on the questionable tardive dyskinesia, keep NPO for now pending swallow eval DVT prophylaxis Chem PPX+ ALPS NPO Full Code As Ranked By This Provider Problem List: 1. Acute renal injury Core Measures/Misc (02/03) Acute Coronary Syndrome ACS Diagnosis: No Congestive Heart Failure Congestive Heart Failure Diagnosis No Cerebrovascular Accident CVA/TIA Diagnosis: No VTE (View Protocol) VTE Risk Factors Age>40 No Mechanical VTE Prophylaxis d/t N/A MechProphylax Ordered No VTE Pharm Prophylaxis d/t NA PharmProphylax ordered Sepsis (View protocol) Sepsis Present: No If YES complete Sepsis Event Note If YES complete Sepsis Event Note Aubrey Kaur 10/13/17 0027: Core Measures/Misc (02/03) Sepsis (View protocol) If YES complete Sepsis Event Note If YES complete Sepsis Event Note Resident Review Statement Resident Statement: examined this patient, discussed with financial internship, agreed with financial internship Other Findings: Ms Patel is a 57-year-old woman with a past medical history of hypertension, previous history of UTI, osteoarthritis, type 2 diabetes insulin treated, bipolar disease, hypothyroidism, was brought to the ER with a chief concern of altered mental status as per the son. She was recently treated for hyperosmolar hyperglycemic state and discharged on 09/28/2017 on Levemir, Januvia, glimepiride , metformin. She was known to be in her usual state of health until the pm of admission; and was found to be altered, and did not want to eat her dinner as per the patient. She continued to have tremors and tics on her face which are relatively new. Lives with her son, administers her medications regularly. Did not have any fever, shortness of breath, dysuria, cough, chest pain, palpitations. At the time of admission-temperature 96.8, pulse rate 79, blood pressure 129/62, pulse ox 96% on room air. General Exam: AAOx3, No acute distress, slow to respond, Skin: No rashes, no breakdown;HEENT: PERRLA, EOMI;Neck: Supple, No JVD; No cervical lymphadenopathy; CVS: Reg Rate, Normal S1,S2, No MGR;Resp: Normal air entry, no ronchi/rales; Abdomen: Soft, No tenderness, Normal Bowel Sounds;Neuro: stattaco Speech, tics on her face, Strength 5/5 b/l x 4 extremities, Sensation intact, CN III-XII NL, Reflexes 2+;Extremities: No cyanosis, 1+ pedal edema. Pertinent lab findings-WBC 4.5, hemoglobin 11.9, platelet count 161. Sodium 140 , potassium 4.3, bicarbonate 30, anion gap 12, BUN 34, creatinine 1.6 (his baseline 0.7), glucose 138, lactic acid 1.4. Liver chemistry siphon AST 30, ALT 17. Troponin 0.01. Toxicology-valproic acid 119 (upper limit of reference normal to [facility]), others negative. Hemoglobin A1c 9.9-09/22/2017. Urinalysis revealed clear urine, negative leukocyte esterase, nitrites. Fraction excretion of sodium was greater than 1.5 %. ABG revealed respiratory alkalosis-likely hyperventilation. PH 7.53, PCO2 29, PO2 113. Chest x-ray-10/12/2017-No acute cardiopulmonary findings. Head CT-10/12/2017-There is no evidence of acute intracranial hemorrhage or territorial infarction. No abnormal mass effect or midline shift is seen. Pierre to white matter differentiation is well preserved. No extra-axial fluid collectionsare identified.The ventricles are normal in size. No acute skull fracture. The mastoid aircells and visualized portions of the paranasal sinuses are well aerated. No acute intracranial pathology. Etiology in her case of her acute change in her mentation, could likely be from dehydration. No recent use of NSAIDs, but slight elevation in FeNa is likely from dehydration leading to tubular injury. In regards to her elevated valproate levels, could be attributed to recent dosage adjustments; and change in total protein level in kidney disease would change the binding of valproate and hence free valproate level would be of more clinical significance in her case. These elevated valproate levels, can explain some of her symptoms. She also had symptoms suggestive of tardive dyskinesia which likely are from antipsychotics that she has been on. For her diabetes, her medications need to be tailored appropriately. Problem list: 1. Elevated valproated levels 2. Acute kidney injury 3. h/o Bipolar disorder 4. Type 2 diabetes 5. History of hypothyroidism #1 admit patient to general medicine service #2 for acute kidney injury-she should be given intravenous fluids, and recheck renal function in the next 24 hours. Hold off on all NSAIDs all nephrotoxic medications at this time. She does not appear to have any clinical/laboratory evidence of urinary tract infection. No antibiotics are indicated at this time. #3 type 2 diabetes-she has been started on multiple oral hypoglycemic drugs, including long-acting insulin. Last HbA1c 9.9. Hold all oral hypoglycemic drugs at this time. Start Levemir 15 units twice a day, and titrate accordingly. Insulin sliding scale. #4 bipolar disorder-at this time, she has valproate levels greater than 100 g/ microliter, which is considered high. As per the reference normal to [facility], she is at higher limit of normal. Valproate needs to be held at this time, and check the levels in the next 24 hours. She also has Latuda on her med list, which likely is contributing to her symptoms. Psychiatry consult to reevaluate the medications. Housekeeping checklist: #1 DVT prophylaxis-subcutaneous heparin #2 GI prophylaxis-Protonix when necessary #3 CODE STATUS-full code #4 medication list-reconciled. #5 consult-endocrinology, psychiatry. Foster LI, [facility] 10/13/17 0419: Core Measures/Misc (02/03) Sepsis (View protocol) If YES complete Sepsis Event Note If YES complete Sepsis Event Note Attending MD Review Statement Attending Statement Attending MD Statement: examined this patient, discuss w/resident/PA/AFFIRMATIVE ACTION OFFICER, agreed w/resident/PA/AFFIRMATIVE ACTION OFFICER, discussed with family, reviewed images, amended to note Attending Assessment/Plan: 57 yo F with h/o T2DM, HTN, hypothyroidism, bipolar disorder, GERD, asthma, was discharged on September 28 after being treated for HHS secondary to noncompliance, is brought in today for increasing confusion, poor appetite, lethargy and incoherent speech. Patient was oriented x1 on ER arrival, but oriented x3 at the time of our evaluation. However she is a limited historian. She had a slow stuttering speech, frowning, lip smacking and tremors. Son notes that the tremor is not new. There is a visiting nurse who comes in twice a week, and son makes sure patient is taking her meds, but he reports her appetite is poor. She does not drink enough fluids. She has gait instability. Of note, patient was started on multiple OHA during the most recent admission includin metformin, januvia, glimepiride in addition to pioglitazone and levemir. Also her depakote dose was reduced while adding another antipsychotic agent Latuda. Vitals are stable. Exam as above. Neuro is nonfocal except for the slow stuttering speech, tremors, frowing and lip smacking movements. Labs: WBC 4.5, BUN 34, creat 1.6, glucose 138, lactic acid 1.4, trop neg. TSH normal. UA is negative. Urine tox screen negative. Alcohol <10. Valproic acid level is 119.6 ( borderline high). AB.53/29/113/24. CT head: no acute pathology. CXR: no acute findings. EKG: sinus rhythm, inferior Q waves are old, Qtc 418. Assessment and plan: 1. Confusion, altered mentation acute delirium 2. Acute kidney injury, dehydration, no evidence of UTI 3. Type 2 diabetes with no evidence of HHS or DKA 4. Elevated valproic acid levels (cut off is generally 100, patient's level is at 119.6 for our lab cut off of 120) 5. Possible drug induced dyskinesia ?valproic acid ?latuda 6. Essential hypertension 7. Bipolar disorder - Admit to General medicine - Neurochecks Q4 - Strict I/O's, monitor urine output - IV hydration with normal saline, trend renal functions - Check urine lytes. If renal functions do no improve would obtain renal ultrasound. - Accucheks TIDAC, hold all oral hypoglycemic agents - Initiate levemir 15 units BID and Novolog SS - Diabetic diet, advance as tolerated - Endo consult - Hold valproic acid and recheck levels in AM - Hold latuda - Hold all sedative meds such as trazodone - Obtain Psych consult DVT ppx Hep SC. Full code.
[2017-10-13] MEDS ORDERED: LEVOTHYROXINE75 MCG PO (00:22)
[2017-10-13 01:23] VITALS: BP 138/76
--- NOTE | 2017-10-13 04:19 | Admission Certification ---
Admission Certification Certification Statement - As attending physician, I certify that at the time of - admission, based on clinical presentation, severity of - symptoms, need for further diagnostic testing and - therapeutic interventions, and risk of adverse outcomes - without in-hospital treatment, in my clinical assessment, - this patient requires an acute hospital stay for a minimum - of two nights or longer. I have also considered psychsocial - factors such as support system, advanced age, financial - issues, cognitive issues, and failed out-patient treatments, - past re-admission history, safety of patient, and lack of - compliance as applicable. Specific rationale supporting this admission is: Confusion, FAM.
[2017-10-13 06:48] VITALS: BP 130/72
--- NOTE | 2017-10-13 08:41 | PN- Housestaff ---
Subjective Follow-up For: Altered mental status potentially secondary to latuda, no infection suspected acute kidney injury secondary to dehydration Questionable tardive dyskinesia from meds overdose including Latuda/Valporic acid PMH of type 2 diabetes mellitus, hyperlipidemia, hypothyroidism, GERD, bipolar disorder, osteoarthritis with right knee replacements Subjective: Patient is seen and examined. She is alert and oriented but is noted to be very mildly confused when discussing some topics and seems to not be able to focus. She states that she "feels bad" and is teary. The patient has tremor at baseline she says she is noted mostly in her jaw. Review of Systems Constitutional: Reports: no symptoms. EENTM: Reports: no symptoms. Cardiovascular: Reports: no symptoms. Respiratory: Reports: no symptoms. Gastrointestinal: Reports: no symptoms. Genitourinary: Reports: no symptoms. Musculoskeletal: Reports: no symptoms. Skin: Reports: no symptoms. Neurological/Psychological: Reports: confusion (VERY MILD CONFUSION), tremors. Objective Last 24 Hrs of Vital Signs/I&O Vital Signs Date Time Temp Pulse Resp B/P B/P Pulse O2 O2 Flow FiO2 Mean Ox Delivery Rate 10/13 1550 97.3 79 20 140/76 98 Room Air 10/13 0648 98.0 79 19 130/72 95 10/13 0123 97.8 83 18 138/76 99 10/13 0003 97.8 80 18 165/84 100 Room Air 10/12 2233 98.2 77 18 126/74 96 Room Air 10/12 2045 Room Air 10/12 2031 96.8 79 18 129/62 96 Room Air Intake & Output 10/13 1600 10/13 0800 10/13 0000 Intake Total Output Total 200 Balance -200 Output, Urine 200 Patient 247 lb 230 lb Weight Weight Bed scale Reported by Patient Measurement Method Physical Exam General Appearance: Alert, Oriented X3, Cooperative, No Acute Distress Skin: No Rashes, No Breakdown, No Significant Lesion Skin Temp/Moisture Exam: Warm/Dry Sepsis Skin Exam (color): Normal for Ethnicity HEENT: Atraumatic, PERRLA, EOMI, Mucous Membr. moist/pink Cardiovascular: Regular Rate, Normal S1, Normal S2, No Murmurs Lungs: Clear to Auscultation, Normal Air Movement Abdomen: Normal Bowel Sounds, Soft, No Tenderness Neurological: Normal Speech, Strength at 5/5 X4 Ext, Normal Tone, Sensation Intact, Cranial Nerves 3-12 NL, TREMOR AT BASELINE, MOSTLY NOTED IN HER JAW Extremities: No Clubbing, No Cyanosis, No Edema Vascular: Normal Pulses, Pulses Symmetrical Current Medications: Current Medications Sig/Domo Start time Last Medication Dose Route Stop Time Status Admin Fenofibrate 145 MG DAILY 10/13 0900 AC 10/13 PO 0828 Heparin Sodium 5,000 UNIT Q8 10/13 0600 AC 10/13 (Porcine) SC 1419 Insulin Aspart 0 TIDAC/HS 10/13 1200 AC 10/13 SC 1154 Insulin Aspart 0 TIDAC 10/13 0800 DC SC Insulin Detemir 12 UNITS BID 10/13 2100 AC SC Insulin Detemir 15 UNITS BID 10/13 0900 DC 10/13 SC 0830 Sodium Chloride 1,000 ML ONCE ONE 10/13 0015 AC 10/13 IV 10/13 2013 042 Sodium Chloride 1,000 ML BOLUS ONE 10/12 2300 DC 10/13 IV 10/12 2359 0135 Last 24 Hrs of Lab/Raul Results Last 24 Hrs of Labs/Mics: Laboratory Tests 10/13/17 0905: Anion Gap 12, Estimated GFR 51 L, BUN/Creatinine Ratio 25.5 H, CBC w Diff NO MAN DIFF REQ, RBC 4.24, MCV 86.2, MCH 28.9, MCHC 33.5, RDW 14.5, MPV 10.6 H, Gran % 39.5 L, Lymphocytes % 49.4, Monocytes % 9.3, Eosinophils % 1.3, Basophils % 0.5, Absolute Granulocytes 1.7, Absolute Lymphocytes 2.1, Absolute Monocytes 0.4, Absolute Eosinophils 0.1, Absolute Basophils 0, Valproic Acid 80.8 10/13/17 0014: Urine Color YEL, Urine Clarity CLEAR, Urine pH 6.5, Ur Specific [place] <= 1.005 , Urine Protein NEG, Urine Ketones NEG, Urine Nitrite NEG, Urine Bilirubin NEG, Urine Urobilinogen 0.2, Ur Leukocyte Esterase NEG, Ur Microscopic EXAM NOT REQUIRED, Urine Hemoglobin NEG, Urine Glucose NEG 10/13/17 0014: Urine Opiates Screen < 100, Methadone Screen < 40, Barbiturate Screen < 60, Ur Phencyclidine Scrn < 6.00, Amphetamines Screen < 100, U Benzodiazepines Scrn < 85, Urine Cocaine Screen < 50, Urine Cannabis Screen < 5.00, Ur Random Creatinine 39.7, Ur Random Sodium 52, Ur Random Potassium 11.1, Fraction Sodium Excret 1.5 H 10/12/172344: Lactic Acid Cancelled 10/12/172114: Lactic Acid 1.4 10/12/172114: Anion Gap 12, Estimated GFR 33 L, BUN/Creatinine Ratio 21.3, Glucose 138 H, Calcium 9.8, Total Bilirubin 0.4, AST 13 L, ALT 17, Alkaline Phosphatase 43, Troponin I < 0.01, Total Protein 7.0, Albumin 4.0, Globulin 3.0, Albumin/ Globulin Ratio 1.3, TSH &T3 &Free T4 Intrp 2.530, CBC w Diff NO MAN DIFF REQ, RBC 4.16 L, MCV 85.9, MCH 28.7, MCHC 33.4, RDW 14.9 H, MPV 9.2, Gran % 50.4, Lymphocytes % 38.6, Monocytes % 10.0 H, Eosinophils % 0.5, Basophils % 0.5, Absolute Granulocytes 2.3, Absolute Lymphocytes 1.7, Absolute Monocytes 0.4, Absolute Eosinophils 0, Absolute Basophils 0, Valproic Acid 119.6, Serum Alcohol < 10.0 10/12/172109: pH 7.53 H, pCO2 29 L, pO2 113 H, HCO3 24, ABG O2 Sat (Measured) 98.0, Carboxyhemoglobin 0.1 L, O2 Concentration % RA, O2 Delivery Method RA, Phlebotomy Draw Site RIGHT RADIAL 10/12/172036: Ur Random Creatinine Cancelled, Ur Random Sodium Cancelled, Ur Random Potassium Cancelled, Fraction Sodium Excret Cancelled Assessment/Plan Assessment: Ms. Mullen is a 57yo F w/ PMH of type 2 diabetes mellitus, hyperlipidemia, hypothyroidism, GERD, bipolar disorder, osteoarthritis with right knee replacements, presented with altered mental status. Patient was alert and oriented to time/place/birthday during our clinical interaction however she appeared to be in slow speech and occasionally frowning, however denied that she was in pain or any discomfort. Patient was conversational but broken in words. She remembered that she was not eating her dinner and then the son brought her here. At baseline, son endorsed that patient had some tremor and chronic imbalance in walking, however stated that patient had more slurred speech compared to baseline. During our clinical interaction, patient denied recent travel/sick contacts, fever/lightheadedness/diaphoresis/night sweat/weight change/cough/SOB/Chest Pain /Palpitation/Abdominal pain/bowel movement or urinary abnormality however she was incontinent, or other skin/musculoskeletal/neurological/mood disorders, or dietary/appetite change. On admission, Vitals: Stable, afebrile, BP 126/74, 96% on room air -CBC: W BC 4.5, H/H 11.9/35.7, -BMP: Glucose 138, elevated creatinine 1.6 compared to baseline of 0.8 a month ago, -CXR/head CT: No acute issues -EKG: NSR w/o significant ST-T abnormalities. -Interventions in ER: IV normal saline 1 L bolus, not given due to hard-stick Problem list & Assessment: #Altered mental status #Acute kidney injury secondary to dehydration #Questionable tardive dyskinesia from meds overdose including Latuda/Valporic acid #PMH of type 2 diabetes mellitus, hyperlipidemia, hypothyroidism, GERD, bipolar disorder, osteoarthritis with right knee replacements PLAN: - Admitted to general medicine, vitals per protocol currently not in DKA/no anion gap/unknown acetone as no urine was collected. Will continue monitor and hold all home hypoglycemics. We have put in a new sliding scale for meal and bedtime coverage. - Hold valporic acid, and recheck in 24hours. - Hold Latuda - Psychiatry did discuss with medical service seeing the patient. However, it was decided that, as her altered mental status may be secondary to medication, so psychiatry formal consultation was deferred. However at this point, we would like psychiatry to come and reassess her psych medications so we have resubmitted the consult. - Patient passed the bedside swallow eval we will advance her diet to consistent carbohydrate 2 -Continue normal saline at 50 mL per hour for FAM and monitor creatinine. DVT prophylaxis Chem PPX+ ALPS NPO Full Code Problem List: 1. Acute delirium 2. Acute renal injury Pain Ratin Pain Location: na Pain Goal: Remain pain free Pain Plan: na Tomorrow's Labs & Rationales: bep
[2017-10-13 09:49] LABS: ABSOLUTE BASOPHIL COUNT 0 /CUMM (0.0-0.2); ABSOLUTE EOSINOPHIL COUNT 0.1 /CUMM (0.0-0.7); ABSOLUTE GRANULOCYTE CT 1.7 /CUMM (1.4-6.5); ABSOLUTE LYMPH COUNT 2.1 /CUMM (1.2-3.4); ABSOLUTE MONOCYTE COUNT 0.4 /CUMM (0.10-0.60); BASOPHIL % 0.5 % (0.0-2.0); EOSINOPHIL % 1.3 % (0-5); GRANULOCYTE % 39.5 % (42.2-75.2); HEMATOCRIT 36.6 % (37-47); MEAN CORPUSCULAR HGB 28.9 PG (27.0-31.0); MEAN CORPUSCULAR HGB CONC 33.5 G/DL (33.0-37.0); MEAN CORPUSCULAR VOLUME 86.2 FL (81.0-99.0); MEAN PLATELET VOLUME 10.6 FL (7.4-10.4); PLATELET COUNT 135 /CUMM (130-400); RBC DISTRIBUTION WIDTH 14.5 % (11.5-14.5); RED BLOOD CELL CT 4.24 /CUMM (4.20-5.40); WHITE BLOOD CELL COUNT 4.3 /CUMM (4.8-10.8)
--- NOTE | 2017-10-13 11:18 | Cons- Endocrinology ---
General Information and HPI Consulting Request Date of Consult: 10/13/17 Requested By: medical team Reason for Consult: management of uncontrolled diabetes type 2 Source of Information: patient, old records Exam Limitations: poor historian History of Present Illness: 57 yo F with h/o T2DM, HTN, hypothyroidism, bipolar disorder, GERD, asthma, was recently discharged after being treated for HHS secondary to noncompliance, was admitted for increasing confusion, poor appetite, lethargy and incoherent speech. In ER, her Cr was 1.6. At home, she was on Levemir 36 units daily, actos 30mg daily, Januvia 100 mg dailya nd Glimepiride 4 mg daily. In hospital, she was put on Levemir 15 units twice a day and Novolog coverage before meals. Her FSGs were 147, 101 and 71. Allergies/Medications Allergies: Coded Allergies: Penicillins (Severe, RASH 10/21/16) STATINS (Intermediate, HIVES 10/21/16) metformin (VAGINAL ITCHING 02/16/17) TUTU Inhibitors (Intermediate, DRY COUGH 10/21/16) Home Med List: Acetaminophen (Tylenol Extra Strength) 500 MG TABLET 2 TAB PO BID PRN PAIN ( Reported) Divalproex Sodium (Depakote ER) 250 MG TAB.ER.24H 5 TAB PO QPM Mood Stabilizer Fenofibrate Nanocrystallized (Fenofibrate) 145 MG TABLET 1 TAB PO DAILY HLD ( Reported) Glimepiride 2 MG TABLET 4 MG PO DAILY AC DM . Hydrocortisone (Anti-Itch) 1 % CREAM..G. 1 RUDDY TOP BID itchy rash Hydroxyzine Hydrochloride (Atarax) 50 MG TAB 1 TAB PO TID ITCHING Insulin Detemir (Levemir Flextouch) 100 UNIT/ML (3 ML) INSULN.PEN 36 INJ SC DAILY diabetes Levothyroxine Sodium 75 MCG TABLET 1 TAB PO DAILY HypoTSH (Reported) Lurasidone HCl (Latuda) 20 MG TABLET 1 TAB PO QPM Mood Stabilizer Metformin HCl (Glucophage XR) 500 MG TAB.ER.24H 1 TAB PO DAILY DM .with food Phenazopyridine HCl (Pyridium) 100 MG TABLET 1 TAB PO TID burnings Pioglitazone HCl 30 MG TABLET 1 TAB PO DAILY DM Sitagliptin Phosphate (Januvia) 100 MG TABLET 100 MG PO DAILY DM . Trazodone HCl 100 MG TABLET 2 TAB PO QPM PRN insomnia Review of Systems Review of Systems Constitutional: Reports: see HPI (poor historian). 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 Ambulation: cane IADLs Independent: shopping, housework, finances, food prep, telephone, transportation , medication admin. Exam & Diagnostic Data Last 24 Hrs of Vital Signs/I&O Vital Signs Date Time Temp Pulse Resp B/P B/P Pulse O2 O2 Flow FiO2 Mean Ox Delivery Rate 10/13 0648 98.0 79 19 130/72 95 10/13 0123 97.8 83 18 138/76 99 10/13 0003 97.8 80 18 165/84 100 Room Air 10/12 2233 98.2 77 18 126/74 96 Room Air 10/12 2045 Room Air 10/12 2031 96.8 79 18 129/62 96 Room Air Intake & Output 10/13 1600 10/13 0800 10/13 0000 Intake Total Output Total 200 Balance -200 Output, Urine 200 Patient 247 lb 230 lb Weight Weight Bed scale Reported by Patient Measurement Method Physical Exam General Appearance: confused Neck: normal inspection Respiratory: decreased breath sounds Cardiovascular: regular rate/rhythm Gastrointestinal: soft, non-tender Extremities: no edema Labs/Raul Results: Laboratory Tests 10/13 10/13 0905 0014 Chemistry Sodium (137 - 145 mmol/L) 143 Potassium (3.5 - 5.1 mmol/L) 3.8 Chloride (98 - 107 mmol/L) 104 Carbon Dioxide (22 - 30 mmol/L) 27 Anion Gap (5 - 16) 12 BUN (7 - 17 mg/dL) 28 H Creatinine (0.5 - 1.0 mg/dL) 1.1 H Estimated GFR (>60 ml/min) 51 L BUN/Creatinine Ratio (7 - 25 %) 25.5 H Hematology CBC w Diff NO MAN DIFF REQ WBC (4.8 - 10.8 /CUMM) 4.3 L RBC (4.20 - 5.40 /CUMM) 4.24 Hgb (12.0 - 16.0 G/DL) 12.3 Hct (37 - 47 %) 36.6 L MCV (81.0 - 99.0 FL) 86.2 MCH (27.0 - 31.0 PG) 28.9 MCHC (33.0 - 37.0 G/DL) 33.5 RDW (11.5 - 14.5 %) 14.5 Plt Count (130 - 400 /CUMM) 135 MPV (7.4 - 10.4 FL) 10.6 H Gran % (42.2 - 75.2 %) 39.5 L Lymphocytes % (20.5 - 51.1 %) 49.4 Monocytes % (1.7 - 9.3 %) 9.3 Eosinophils % (0 - 5 %) 1.3 Basophils % (0.0 - 2.0 %) 0.5 Absolute Granulocytes (1.4 - 6.5 /CUMM) 1.7 Absolute Lymphocytes (1.2 - 3.4 /CUMM) 2.1 Absolute Monocytes (0.10 - 0.60 /CUMM) 0.4 Absolute Eosinophils (0.0 - 0.7 /CUMM) 0.1 Absolute Basophils (0.0 - 0.2 /CUMM) 0 Toxicology Valproic Acid (50 - 120 ug/mL) 80.8 Urines Urine Color (YEL,AMB,STR) YEL Urine Clarity (CLEAR) CLEAR Urine pH (5.0 - 8.0) 6.5 Ur Specific [place] (1.001 - 1.035) <= 1.005 Urine Protein (NEG,<30 MG/DL) NEG Urine Ketones (NEG) NEG Urine Nitrite (NEG) NEG Urine Bilirubin (NEG) NEG Urine Urobilinogen (0.1 - 1.0 EU/dl) 0.2 Ur Leukocyte Esterase (NEG) NEG Ur Microscopic EXAM NOT REQUIRED Urine Hemoglobin (NEG) NEG Urine Glucose (N MG/DL) NEG 10/13 10/12 10/12 0014 2914 2006 Chemistry Lactic Acid (0.7 - 2.1 mmol/L) Cancelled 1.4 Toxicology Urine Opiates Screen (>2000 NG/ML) < 100 Methadone Screen (>300 NG/ML) < 40 Barbiturate Screen (>200 NG/ML) < 60 Ur Phencyclidine Scrn (>25 NG/ML) < 6.00 Amphetamines Screen (>1000 NG/ML) < 100 U Benzodiazepines Scrn (>200 NG/ML) < 85 Urine Cocaine Screen (>300 NG/ML) < 50 Urine Cannabis Screen (>50 NG/ML) < 5.00 Urines Ur Random Creatinine (mg/dL) 39.7 Ur Random Sodium (30 - 90 mmol/L) 52 Ur Random Potassium (mmol/L) 11.1 Fraction Sodium Excret (<1% %) 1.5 H 10/12 Blood Gas pH (7.35 - 7.45 PH) 7.53 H pCO2 (35 - 45 TORR) 29 L pO2 (80 - 100 TORR) 113 H HCO3 (21 - 28 MEQ/L) 24 ABG O2 Sat (Measured) (>96.0 %) 98.0 Carboxyhemoglobin (1.5 - 5.0 %) 0.1 L O2 Concentration % RA O2 Delivery Method RA Chemistry Sodium (137 - 145 mmol/L) 140 Potassium (3.5 - 5.1 mmol/L) 4.3 Chloride (98 - 107 mmol/L) 98 Carbon Dioxide (22 - 30 mmol/L) 30 Anion Gap (5 - 16) 12 BUN (7 - 17 mg/dL) 34 H Creatinine (0.5 - 1.0 mg/dL) 1.6 H Estimated GFR (>60 ml/min) 33 L BUN/Creatinine Ratio (7 - 25 %) 21.3 Glucose (65 - 99 mg/dL) 138 H Calcium (8.4 - 10.2 mg/dL) 9.8 Total Bilirubin (0.2 - 1.3 mg/dL) 0.4 AST (14 - 36 U/L) 13 L ALT (9 - 52 U/L) 17 Alkaline Phosphatase (<127 U/L) 43 Troponin I (< 0.11 ng/ml) < 0.01 Total Protein (6.3 - 8.2 g/dL) 7.0 Albumin (3.5 - 5.0 g/dL) 4.0 Globulin (1.9 - 4.2 gm/dL) 3.0 Albumin/Globulin Ratio (1.1 - 2.2 %) 1.3 TSH &T3 &Free T4 Intrp (0.270 - 4.20 uIU/mL) 2.530 Hematology CBC w Diff NO MAN DIFF REQ WBC (4.8 - 10.8 /CUMM) 4.5 L RBC (4.20 - 5.40 /CUMM) 4.16 L Hgb (12.0 - 16.0 G/DL) 11.9 L Hct (37 - 47 %) 35.7 L MCV (81.0 - 99.0 FL) 85.9 MCH (27.0 - 31.0 PG) 28.7 MCHC (33.0 - 37.0 G/DL) 33.4 RDW (11.5 - 14.5 %) 14.9 H Plt Count (130 - 400 /CUMM) 161 MPV (7.4 - 10.4 FL) 9.2 Gran % (42.2 - 75.2 %) 50.4 Lymphocytes % (20.5 - 51.1 %) 38.6 Monocytes % (1.7 - 9.3 %) 10.0 H Eosinophils % (0 - 5 %) 0.5 Basophils % (0.0 - 2.0 %) 0.5 Absolute Granulocytes (1.4 - 6.5 /CUMM) 2.3 Absolute Lymphocytes (1.2 - 3.4 /CUMM) 1.7 Absolute Monocytes (0.10 - 0.60 /CUMM) 0.4 Absolute Eosinophils (0.0 - 0.7 /CUMM) 0 Absolute Basophils (0.0 - 0.2 /CUMM) 0 Miscellaneous Phlebotomy Draw Site RIGHT RADIAL Toxicology Valproic Acid (50 - 120 ug/mL) 119.6 Serum Alcohol (<10 MG/DL) < 10.0 10/12 2036 Urines Ur Random Creatinine Cancelled Ur Random Sodium Cancelled Ur Random Potassium Cancelled Fraction Sodium Excret Cancelled Assessment/Plan Assessment/Plan 57 yo F with h/o T2DM, HTN, hypothyroidism, bipolar disorder, GERD, asthma, was recently discharged after being treated for HHS secondary to noncompliance, was admitted for increasing confusion, poor appetite, lethargy and incoherent speech. Her glucose level was 71 this morning. Plan: 1. decrease Levemir to 12 units twice a day; 2. adjust Novolog coverage before meals and add Novolog coverage at bedtime; detail see the inpatient DM orders; 3. monitor FSGs. will follow. Inpatient Diabetes Orders Before Each Meal: Bolus Insulin: Novolog < 80 mg/dl: no coverage 80-100 mg/dl: no coverage 101-120 mg/dl: no coverage 121-150 mg/dl: no coverage 151-200 mg/dl: 3 units 201-250 mg/dl: 5 units 251-300 mg/dl: 7 units 301-350 mg/dl: 8 units 351-400 mg/dl: 9 units > 400 mg/dl: 10 units Bedtime: Bolus Insulin: Novolog < 80 mg/dl: no coverage 80-100 mg/dl: no coverage 101-120 mg/dl: no coverage 121-150 mg/dl: no coverage 151-200 mg/dl: no coverage 201-250 mg/dl: no coverage 251-300 mg/dl: 2 units 301-350 mg/dl: 3 units 351-400 mg/dl: 4 units > 400 mg/dl: 5 units Consult Acknowledgment - Thank you for your consult request.
--- NOTE | 2017-10-13 13:19 | PN- Att Addend ---
Attending Addendum Attending Brief Note Patient seen and examined. Plan of care discussed with the medical team and the patient. Available lab work and radiology test reports were reviewed. Patient is a much more awake alert. She is currently oriented and reading a magazine. Denies any fever chills. She remains tremulous at her baseline. Exam: General: Patient awake alert oriented without any distress; she is visibly tremulous but apparently this is her baseline CVS: S1 plus S2 without any murmur or gallops Chest: Few scattered crepitation without any wheeze. There is no respiratory distress. 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 oriented with tremors of both hand and had without any focal neuro deficit and follows commands appropriately; she exhibits features of dyskinesia Extremities: No edema; no clubbing or cyanosis noted Assessment and problem list * Altered mental status- I suspect this is due to her recently started Latuda; other contributing factor could be dehydration and acute renal failure; there is no sign of any acute infection at this point * acute kidney injury secondary to dehydration * Questionable tardive dyskinesia from meds overdose including Latuda/Valporic acid (119.5 almost toxic level considering patient's FAM)? * PMH of type 2 diabetes mellitus, * hyperlipidemia, * hypothyroidism, * GERD, * bipolar disorder, * osteoarthritis with right knee replacements Plan * Continue to hold Latuda * Psychiatric consultation to reassess psych medications * Frequent reorientation * Out of bed and ambulate with assist * Okay to feed patient regular diet Current Medications Sig/Domo Start time Last Medication Dose Route Stop Time Status Admin Fenofibrate 145 MG DAILY 10/13 0900 AC 10/13 PO 0828 Heparin Sodium 5,000 UNIT Q8 10/13 0600 AC 10/13 (Porcine) SC 0521 Insulin Aspart 0 TIDAC/HS 10/13 1200 AC 10/13 SC 1154 Insulin Aspart 0 TIDAC 10/13 0800 DC SC Insulin Detemir 12 UNITS BID 10/13 2100 AC SC Insulin Detemir 15 UNITS BID 10/13 0900 DC 10/13 SC 0830 Sodium Chloride 1,000 ML ONCE ONE 10/13 0015 AC 10/13 IV 10/13 2013 0426 Sodium Chloride 1,000 ML BOLUS ONE 10/12 2300 DC 10/13 IV 10/12 2359 0135 Laboratory Tests 10/13/17 0905: Anion Gap 12, Estimated GFR 51 L, BUN/Creatinine Ratio 25.5 H, CBC w Diff NO MAN DIFF REQ, RBC 4.24, MCV 86.2, MCH 28.9, MCHC 33.5, RDW 14.5, MPV 10.6 H, Gran % 39.5 L, Lymphocytes % 49.4, Monocytes % 9.3, Eosinophils % 1.3, Basophils % 0.5, Absolute Granulocytes 1.7, Absolute Lymphocytes 2.1, Absolute Monocytes 0.4, Absolute Eosinophils 0.1, Absolute Basophils 0, Valproic Acid 80.8 10/13/17 0014: Urine Color YEL, Urine Clarity CLEAR, Urine pH 6.5, Ur Specific [place] <= 1.005 , Urine Protein NEG, Urine Ketones NEG, Urine Nitrite NEG, Urine Bilirubin NEG, Urine Urobilinogen 0.2, Ur Leukocyte Esterase NEG, Ur Microscopic EXAM NOT REQUIRED, Urine Hemoglobin NEG, Urine Glucose NEG 10/13/17 0014: Urine Opiates Screen < 100, Methadone Screen < 40, Barbiturate Screen < 60, Ur Phencyclidine Scrn < 6.00, Amphetamines Screen < 100, U Benzodiazepines Scrn < 85, Urine Cocaine Screen < 50, Urine Cannabis Screen < 5.00, Ur Random Creatinine 39.7, Ur Random Sodium 52, Ur Random Potassium 11.1, Fraction Sodium Excret 1.5 H 10/12/17 2345: Lactic Acid Cancelled 10/12/172114: Lactic Acid 1.4 10/12/172114: Anion Gap 12, Estimated GFR 33 L, BUN/Creatinine Ratio 21.3, Glucose 138 H, Calcium 9.8, Total Bilirubin 0.4, AST 13 L, ALT 17, Alkaline Phosphatase 43, Troponin I < 0.01, Total Protein 7.0, Albumin 4.0, Globulin 3.0, Albumin/ Globulin Ratio 1.3, TSH &T3 &Free T4 Intrp 2.530, CBC w Diff NO MAN DIFF REQ, RBC 4.16 L, MCV 85.9, MCH 28.7, MCHC 33.4, RDW 14.9 H, MPV 9.2, Gran % 50.4, Lymphocytes % 38.6, Monocytes % 10.0 H, Eosinophils % 0.5, Basophils % 0.5, Absolute Granulocytes 2.3, Absolute Lymphocytes 1.7, Absolute Monocytes 0.4, Absolute Eosinophils 0, Absolute Basophils 0, Valproic Acid 119.6, Serum Alcohol < 10.0 10/12/172109: pH 7.53 H, pCO2 29 L, pO2 113 H, HCO3 24, ABG O2 Sat (Measured) 98.0, Carboxyhemoglobin 0.1 L, O2 Concentration % RA, O2 Delivery Method RA, Phlebotomy Draw Site RIGHT RADIAL 10/12/172036: Ur Random Creatinine Cancelled, Ur Random Sodium Cancelled, Ur Random Potassium Cancelled, Fraction Sodium Excret Cancelled Vital Signs Date Time Temp Pulse Resp B/P B/P Pulse O2 O2 Flow FiO2 Mean Ox Delivery Rate 10/13 0648 98.0 79 19 130/72 95 10/13 0123 97.8 83 18 138/76 99 10/13 0003 97.8 80 18 165/84 100 Room Air 10/12 2232 98.2 77 18 126/74 96 Room Air 10/12 2044 Room Air 10/12 2030 96.8 79 18 129/62 96 Room Air Intake & Output 10/13 1600 10/13 0800 10/13 0000 Intake Total Output Total 200 Balance -200 Output, Urine 200 Patient 247 lb 230 lb Weight Weight Bed scale Reported by Patient Measurement Method
--- NOTE | 2017-10-13 13:49 | Incdntl Nt Psy ---
Incidental Note Notation: Routine psychiatric consult placed at 5:30 am by who was on service. Discussed with Dr.Hanis Inez MD, who is the current physician for this patient. He stated that the patient presented with altered mental state, she had been recently started on Latuda and the team is holding it for now, ruling out medication induced mental state changes. He said that the patient will be monitored and if there is a need they will resubmit the consult request.
[2017-10-13 15:50] VITALS: BP 140/76
[2017-10-13 22:15] VITALS: BP 151/64
[2017-10-14 06:47] VITALS: BP 160/74
--- NOTE | 2017-10-14 10:38 | PN- Housestaff ---
Subjective Follow-up For: Altered mental status potentially secondary to latuda, no infection suspected acute kidney injury secondary to dehydration Questionable tardive dyskinesia from meds overdose including Latuda/Valporic acid PMH of type 2 diabetes mellitus, hyperlipidemia, hypothyroidism, GERD, bipolar disorder, osteoarthritis with right knee replacements Subjective: Patient seen and examined. She states that she has a very minor headache. She is alert and oriented 3 but does appear to have a somewhat "difference" affect. The patient notes that her son is coming today. She denies any chest pain, shortness of breath, nausea, vomiting. She speaks in a very slow manner. She complains of a lower extremity erythematous lesion, less than 1 cm, mildly itchy. The patient does walk unassisted at home but notes that before she came in here she had spends more time than usual and that. She was getting physical therapy prior to admission here. Review of Systems Constitutional: Reports: no symptoms. EENTM: Reports: no symptoms. Cardiovascular: Reports: no symptoms. Respiratory: Reports: no symptoms. Gastrointestinal: Reports: no symptoms. Genitourinary: Reports: no symptoms. Musculoskeletal: Reports: no symptoms. Skin: Reports: lesions. Neurological/Psychological: Reports: headache. Hematologic/Endocrine: Reports: no symptoms. Objective Last 24 Hrs of Vital Signs/I&O Vital Signs Date Time Temp Pulse Resp B/P B/P Pulse O2 O2 Flow FiO2 Mean Ox Delivery Rate 10/14 0647 98.7 81 20 160/74 95 10/13 2215 98.6 85 20 151/64 98 10/13 1550 97.3 79 20 140/76 98 Room Air Intake & Output 10/14 1600 10/14 0800 10/14 0000 Intake Total 480 Output Total 500 Balance -20 Intake, Oral 480 Output, Urine 500 Physical Exam General Appearance: Alert, Oriented X3, Cooperative, No Acute Distress Skin: No Breakdown, No Significant Lesion Skin Temp/Moisture Exam: Warm/Dry Sepsis Skin Exam (color): Normal for Ethnicity HEENT: Atraumatic, PERRLA, EOMI, Mucous Membr. moist/pink Cardiovascular: Regular Rate, Normal S1, Normal S2, No Murmurs Lungs: Clear to Auscultation, Normal Air Movement Abdomen: Normal Bowel Sounds, Soft, No Tenderness, No Hepatospenomegaly Neurological: Strength at 5/5 X4 Ext, Normal Tone, Sensation Intact, Cranial Nerves 3-12 NL, Reflexes 2+, slow speech, patient is alert and oriented 3, memory 4 recent and remote, intact. Executive functioning intact. Extremities: No Clubbing, No Cyanosis, No Edema, Normal Pulses, No Tenderness/ Swelling Vascular: Normal Pulses, Pulses Symmetrical Current Medications: Current Medications Sig/Domo Start time Last Medication Dose Route Stop Time Status Admin Fenofibrate 145 MG DAILY 10/13 0900 AC 10/14 PO 0911 Heparin Sodium 5,000 UNIT Q8 10/13 0600 AC 10/14 (Porcine) SC 0522 Insulin Aspart 0 TIDAC/HS 10/13 1200 AC 10/13 SC 1154 Insulin Detemir 12 UNITS BID 10/13 2100 AC 10/14 SC 0911 Polyethylene Glycol 17 GM DAILY 10/14 1034 AC PO Senna/Docusate Sodium 2 TAB DAILY 10/14 1034 AC PO Sodium Chloride 1,000 ML ONCE ONE 10/13 0015 DC 10/13 IV 10/13 Last 24 Hrs of Lab/Raul Results Last 24 Hrs of Labs/Mics: Laboratory Tests 10/14/17 0740: Anion Gap 12, Estimated GFR 51 L, BUN/Creatinine Ratio 20.9 Assessment/Plan Assessment: Ms. Mullen is a 57yo F w/ PMH of type 2 diabetes mellitus, hyperlipidemia, hypothyroidism, GERD, bipolar disorder, osteoarthritis with right knee replacements, presented with altered mental status. Patient was alert and oriented to time/place/birthday during our clinical interaction however she appeared to be in slow speech and occasionally frowning, however denied that she was in pain or any discomfort. Patient was conversational but broken in words. She remembered that she was not eating her dinner and then the son brought her here. At baseline, son endorsed that patient had some tremor and chronic imbalance in walking, however stated that patient had more slurred speech compared to baseline. During our clinical interaction, patient denied recent travel/sick contacts, fever/lightheadedness/diaphoresis/night sweat/weight change/cough/SOB/Chest Pain /Palpitation/Abdominal pain/bowel movement or urinary abnormality however she was incontinent, or other skin/musculoskeletal/neurological/mood disorders, or dietary/appetite change. On admission, Vitals: Stable, afebrile, BP 126/74, 96% on room air -CBC: W BC 4.5, H/H 11.9/35.7, -BMP: Glucose 138, elevated creatinine 1.6 compared to baseline of 0.8 a month ago, -CXR/head CT: No acute issues -EKG: NSR w/o significant ST-T abnormalities. -Interventions in ER: IV normal saline 1 L bolus, not given due to hard-stick Problem list & Assessment: #Altered mental status #Acute kidney injury secondary to dehydration #Questionable tardive dyskinesia from meds overdose including Latuda/Valporic acid #PMH of type 2 diabetes mellitus, hyperlipidemia, hypothyroidism, GERD, bipolar disorder, osteoarthritis with right knee replacements PLAN: - Admitted to general medicine, vitals per protocol not in DKA/no anion gap/unknown acetone as no urine was collected. Will continue monitor and hold all home hypoglycemics. Continue current sliding scale coverage - Hold valporic acid, and recheck in 24hours. Admission level was on the upper range of normal and yesterday's level was at the low range of normal. All other tox was negative. -Continue to hold Latuda - Psychiatry did discuss with medical service seeing the patient. However, it was decided that, as her altered mental status may be secondary to medication, psychiatry formal consultation was deferred. However at this point, we would like psychiatry to come and reassess her psych medications so we have resubmitted the consult. -Formal swallowing evaluation today past, patient will be continued on the consistent carbohydrate to diet -Patient is constipated so bowel regimen has been started DVT prophylaxis Chem PPX+ ALPS NPO Full Code Problem List: 1. Acute delirium Pain Ratin Pain Location: na Pain Goal: Remain pain free Pain Plan: na Tomorrow's Labs & Rationales: na
--- NOTE | 2017-10-14 11:55 | PN- Att Addend ---
Attending Addendum Attending Brief Note Patient seen and examined. Plan of care discussed with the medical team and the patient. Available lab work and radiology test reports were reviewed. Patient is a much more awake alert. She is currently oriented and does not report any new complaints. Denies any fever chills. She remains tremulous at her baseline. Exam: General: Patient awake alert oriented without any distress; she is visibly tremulous but apparently this is her baseline CVS: S1 plus S2 without any murmur or gallops Chest: Few scattered crepitation without any wheeze. There is no respiratory distress. 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 oriented with tremors of both hand and had without any focal neuro deficit and follows commands appropriately; she exhibits features of dyskinesia; patient has a somewhat unusual affect Extremities: No edema; no clubbing or cyanosis noted Assessment and problem list * Altered mental status- I suspect this is due to her recently started Latuda; other contributing factor could be dehydration and acute renal failure; there is no sign of any acute infection at this point; after holding medications patient mental status has improved * acute kidney injury secondary to dehydration * Questionable tardive dyskinesia from meds overdose including Latuda/Valporic acid (119.5 almost toxic level considering patient's FAM)? * PMH of type 2 diabetes mellitus, * hyperlipidemia, * hypothyroidism, * GERD, * bipolar disorder, * osteoarthritis with right knee replacements Plan * Continue to hold Latuda * Psychiatric consultation to reassess psych medications and treatment of her bipolar disorder * Frequent reorientation * Out of bed and ambulate with assist * No need to check labs tomorrow Current Medications Sig/Domo Start time Last Medication Dose Route Stop Time Status Admin Fenofibrate 145 MG DAILY 10/13 0900 AC 10/14 PO 0911 Heparin Sodium 5,000 UNIT Q8 10/13 0600 AC 10/14 (Porcine) SC 0522 Insulin Aspart 0 TIDAC/HS 10/13 1200 AC 10/13 ND 1154 Insulin Detemir 12 UNITS BID 10/13 2100 AC 10/14 SC 0911 Polyethylene Glycol 17 GM DAILY 10/14 1034 AC PO Senna/Docusate Sodium 2 TAB DAILY 10/14 1034 AC PO Sodium Chloride 1,000 ML ONCE ONE 10/13 0015 DC 10/13 IV 10/13 Laboratory Tests 10/14/17 0740: Anion Gap 12, Estimated GFR 51 L, BUN/Creatinine Ratio 20.9 10/13/17 0905: Anion Gap 12, Estimated GFR 51 L, BUN/Creatinine Ratio 25.5 H, CBC w Diff NO MAN DIFF REQ, RBC 4.24, MCV 86.2, MCH 28.9, MCHC 33.5, RDW 14.5, MPV 10.6 H, Gran % 39.5 L, Lymphocytes % 49.4, Monocytes % 9.3, Eosinophils % 1.3, Basophils % 0.5, Absolute Granulocytes 1.7, Absolute Lymphocytes 2.1, Absolute Monocytes 0.4, Absolute Eosinophils 0.1, Absolute Basophils 0, Valproic Acid 80.8 10/13/17 0014: Urine Color YEL, Urine Clarity CLEAR, Urine pH 6.5, Ur Specific [place] <= 1.005 , Urine Protein NEG, Urine Ketones NEG, Urine Nitrite NEG, Urine Bilirubin NEG, Urine Urobilinogen 0.2, Ur Leukocyte Esterase NEG, Ur Microscopic EXAM NOT REQUIRED, Urine Hemoglobin NEG, Urine Glucose NEG 10/13/17 0014: Urine Opiates Screen < 100, Methadone Screen < 40, Barbiturate Screen < 60, Ur Phencyclidine Scrn < 6.00, Amphetamines Screen < 100, U Benzodiazepines Scrn < 85, Urine Cocaine Screen < 50, Urine Cannabis Screen < 5.00, Ur Random Creatinine 39.7, Ur Random Sodium 52, Ur Random Potassium 11.1, Fraction Sodium Excret 1.5 H 10/12/17 2345: Lactic Acid Cancelled 10/12/172114: Lactic Acid 1.4 10/12/172114: Anion Gap 12, Estimated GFR 33 L, BUN/Creatinine Ratio 21.3, Glucose 138 H, Calcium 9.8, Total Bilirubin 0.4, AST 13 L, ALT 17, Alkaline Phosphatase 43, Troponin I < 0.01, Total Protein 7.0, Albumin 4.0, Globulin 3.0, Albumin/ Globulin Ratio 1.3, TSH &T3 &Free T4 Intrp 2.530, CBC w Diff NO MAN DIFF REQ, RBC 4.16 L, MCV 85.9, MCH 28.7, MCHC 33.4, RDW 14.9 H, MPV 9.2, Gran % 50.4, Lymphocytes % 38.6, Monocytes % 10.0 H, Eosinophils % 0.5, Basophils % 0.5, Absolute Granulocytes 2.3, Absolute Lymphocytes 1.7, Absolute Monocytes 0.4, Absolute Eosinophils 0, Absolute Basophils 0, Valproic Acid 119.6, Serum Alcohol < 10.0 10/12/172109: pH 7.53 H, pCO2 29 L, pO2 113 H, HCO3 24, ABG O2 Sat (Measured) 98.0, Carboxyhemoglobin 0.1 L, O2 Concentration % RA, O2 Delivery Method RA, Phlebotomy Draw Site RIGHT RADIAL 10/12/172036: Ur Random Creatinine Cancelled, Ur Random Sodium Cancelled, Ur Random Potassium Cancelled, Fraction Sodium Excret Cancelled Vital Signs Date Time Temp Pulse Resp B/P B/P Pulse O2 O2 Flow FiO2 Mean Ox Delivery Rate 10/14 0647 98.7 81 20 160/74 95 10/13 2215 98.6 85 20 151/64 98 10/13 1550 97.3 79 20 140/76 98 Room Air
--- NOTE | 2017-10-14 13:31 | PN- Diabetes ---
Assessment/Plan Diabetes Assessment: 57 yo F with h/o T2DM, HTN, hypothyroidism, bipolar disorder, GERD, asthma, was recently discharged after being treated for HHS secondary to noncompliance, was admitted for increasing confusion, poor appetite, lethargy and incoherent speech. She was put on Levemir 12 units twice a day, Novolog coverage before meals and Novolog coverage at bedtime. Her FSGs were 152, 103, 243 and 98. Plan: continue the current insulin regimen for now; monitor FSGs. will follow. Subjective Subjective: She is less confused today. Objective Last 24 Hrs of Vital Signs/I&O Vital Signs Date Time Temp Pulse Resp B/P B/P Pulse O2 O2 Flow FiO2 Mean Ox Delivery Rate 10/14 1250 4.0 10/14 0647 98.7 81 20 160/74 95 10/13 2215 98.6 85 20 151/64 98 10/13 1550 97.3 79 20 140/76 98 Room Air Intake & Output 10/14 1600 10/14 0800 10/14 0000 Intake Total 480 Output Total 200 500 Balance -200 -20 Intake, Oral 480 Output, Urine 200 500 Findings Pertinent Lab/Raul Results: Laboratory Tests 10/14 0740 Chemistry Sodium (137 - 145 mmol/L) 144 Potassium (3.5 - 5.1 mmol/L) 4.0 Chloride (98 - 107 mmol/L) 103 Carbon Dioxide (22 - 30 mmol/L) 28 Anion Gap (5 - 16) 12 BUN (7 - 17 mg/dL) 23 H Creatinine (0.5 - 1.0 mg/dL) 1.1 H Estimated GFR (>60 ml/min) 51 L BUN/Creatinine Ratio (7 - 25 %) 20.9
[2017-10-14 15:27] VITALS: BP 151/78
[2017-10-14 22:43] VITALS: BP 147/79
[2017-10-15 06:31] VITALS: BP 160/78
--- NOTE | 2017-10-15 07:55 | PN- Housestaff ---
See Addendum Rosy Flaherty MD 10/15/17 0754: Subjective Follow-up For: AMS FAM Subjective: Patient seen and examined. She states that she feels "slap happy" ie good. She is alert and oriented x3. She is eating well. She continues with her chronic jaw tremor. She notes that overnight she had an episode of diaphoresis. Patient had elevated BP this morning. Patient denies headache, chest pain, SOB, hallucinations, hopelessness, current depression. She was spoken with by psychiatry extensively today about her diagnosis of bipolar disorder and denies any manic symptoms. Review of Systems Constitutional: Reports: no symptoms. EENTM: Reports: no symptoms. Cardiovascular: Reports: no symptoms. Respiratory: Reports: no symptoms. Gastrointestinal: Reports: no symptoms. Genitourinary: Reports: no symptoms. Musculoskeletal: Reports: no symptoms. Neurological/Psychological: Reports: tremors. Objective Last 24 Hrs of Vital Signs/I&O Vital Signs Date Time Temp Pulse Resp B/P B/P Pulse O2 O2 Flow FiO2 Mean Ox Delivery Rate 10/15 1729 174/80 10/15 1418 98.2 82 20 180/102 96 Room Air 10/15 1328 86 180/102 10/15 1243 96 152/88 10/15 0631 97.3 80 20 160/78 95 Room Air 10/14 2243 98.3 82 20 147/79 97 Room Air Intake & Output 10/15 1600 10/15 0800 10/15 0000 Intake Total 600 250 710 Output Total 350 300 400 Balance 250 -50 310 Intake, IV 10 10 Intake, Oral 600 240 700 Number 0 0 Bowel Movements Output, Urine 350 300 400 Physical Exam General Appearance: Alert, Oriented X3, Cooperative, No Acute Distress Skin: No Rashes, No Breakdown Skin Temp/Moisture Exam: Warm/Dry HEENT: Atraumatic, PERRLA, EOMI, Mucous Membr. moist/pink Cardiovascular: Regular Rate, Normal S1, Normal S2, No Murmurs Lungs: Clear to Auscultation, Normal Air Movement Abdomen: Normal Bowel Sounds, Soft, No Tenderness Neurological: Normal Speech, patient has tremor most noticeable in the jaw. Minor hand tremor bilaterally. Patient notes that this issue is chronic over a span of years. Extremities: No Clubbing, No Cyanosis, No Edema Current Medications: Current Medications Sig/Domo Start time Last Medication Dose Route Stop Time Status Admin Acetaminophen 500 MG Q6P PRN 10/14 1245 AC 10/14 PO 1250 Amlodipine Besylate 10 MG DAILY 10/15 1200 AC 10/15 PO 1243 Divalproex Sodium 750 MG QPM 10/15 2100 AC PO Fenofibrate 145 MG DAILY 10/13 0900 AC 10/15 PO 0823 Heparin Sodium 5,000 UNIT Q8 10/13 0600 AC 10/15 (Porcine) SC 1328 Insulin Aspart 0 TIDAC/HS 10/13 1200 AC 10/15 SC 1729 Insulin Detemir 12 UNITS BID 10/13 2100 AC 10/15 SC 0822 Losartan Potassium 50 MG ONCE ONE 10/15 1500 DC 10/15 PO 10/15 1501 1729 Losartan Potassium 50 MG DAILY 10/15 1215 AC 10/15 PO 1328 Melatonin 5 MG QPM PRN 10/14 2030 AC 10/14 PO 2048 Patient Medication 1 ED ONE ONE 10/15 1830 DC Teaching ED 10/15 1831 Polyethylene Glycol 17 GM DAILY 10/14 1034 AC 10/15 PO 0823 Senna/Docusate Sodium 2 TAB DAILY 10/14 1034 AC 10/15 PO 0823 Assessment/Plan Assessment: Ms. Mullen is a 57yo F w/ PMH of type 2 diabetes mellitus, hyperlipidemia, hypothyroidism, GERD, bipolar disorder, osteoarthritis with right knee replacements, presented with altered mental status. Patient was alert and oriented to time/place/birthday during our clinical interaction however she appeared to be in slow speech and occasionally frowning, however denied that she was in pain or any discomfort. Patient was conversational but broken in fluency of words. She remembered that she was not eating her dinner and then the son brought her here. At baseline, son endorsed that patient had some tremor and chronic imbalance in walking, however stated that patient had more slurred speech compared to baseline. During our clinical interaction, patient denied recent travel/sick contacts, fever/lightheadedness/diaphoresis/night sweat/weight change/cough/SOB/Chest Pain /Palpitation/Abdominal pain/bowel movement or urinary abnormality however she was incontinent, or other skin/musculoskeletal/neurological/mood disorders, or dietary/appetite change. On admission, Vitals: Stable, afebrile, BP 126/74, 96% on room air -CBC: W BC 4.5, H/H 11.9/35.7, -BMP: Glucose 138, elevated creatinine 1.6 compared to baseline of 0.8 a month ago, -CXR/head CT: No acute issues -EKG: NSR w/o significant ST-T abnormalities. -Interventions in ER: IV normal saline 1 L bolus, not given due to hard-stick Problem list & Assessment: #Altered mental status #Acute kidney injury secondary to dehydration with creatinine elevation resolved. #Questionable tardive dyskinesia from meds overdose including Latuda/Valporic acid #PMH of type 2 diabetes mellitus, hyperlipidemia, hypothyroidism, GERD, bipolar disorder, osteoarthritis with right knee replacements PLAN: - Admitted to general medicine, vitals per protocol not in DKA/no anion gap/unknown acetone as no urine was collected. Will continue monitor and hold all home hypoglycemics. Continue current sliding scale coverage with plan to transition to novolog 70/30 16 units BID before breakfast and dinner. While here we will have nutrition see her for diabetic instruction. -Psychiatry saw the patient today for evaluation of current medications. The patient was recently started on Latuda but never in fact took a dose. Continue to hold. She was on depakote on admission. Admission level was on the upper range of normal, however it is noted that this is not a trough level. All other tox was negative. We will draw an ammonia level to further evaluate the AMS. Although her LFTs are normal, she may still have a degree of hyperammonemia. We will at this point restart her Depakote 750mcg qhs. On discharge we can send her for a depakote trough level to determine dosing regimen. -Formal swallowing evaluation passed for question of the altered mentation and dysarthria, patient will be continued on the consistent carbohydrate to diet -Patient is constipated so bowel regimen has been started DVT prophylaxis Chem PPX+ ALPS NPO Full Code Problem List: 1. Acute delirium Pain Ratin Pain Location: na Pain Goal: Remain pain free Pain Plan: na Tomorrow's Labs & Rationales: nikita Wheeler MD,Jamia 10/15/17 1326: Attending Review Statement Attending Statement Attending MD Statement: examined this patient, discuss w/resident/[facility], agreed w/resident/[facility], reviewed EMR data (avail), discussed with nursing, discussed with case mgmt, amended to note Attending Assessment/Plan: Problems: 1. Altered mental status; resolved 2. Diabetes mellitus 3. Hypertension 4. Acute kidney injury; improving Plan: -Patient is alert and oriented 3 now. She is conversant appropriately. Her altered mentation on presentation was presumed to be secondary to her medications. She is taking Depakote and was started on Latuda recently for presumed bipolar disorder. She has been seen by the psychiatry service here at [facility]. It is unclear if patient does have a diagnosis of bipolar disorder. Psychiatric service is recommending restarting patient on Depakote. She is to follow-up in the outpatient setting for further adjustment of her medication regimen. -Recommendations from the endocrinology service appreciated. Further recommendations will be made for outpatient medication management. Recommend diabetic teaching while he in the hospital today. Recommend outpatient follow- up with visiting nurse services. Patient was on a combination medication of olmesartan, amlodipine and hydrochlorothiazide at home. This was not reconciled on presentation. Resume amlodipine and provide therapeutic substitution with losartan Will resume losartan at a lower dose. -She has no changes in mental status with resumption of Depakote today she may be discharged home tomorrow.
--- NOTE | 2017-10-15 09:52 | PN- Diabetes ---
Assessment/Plan Diabetes Assessment: 57 yo F with h/o T2DM, HTN, hypothyroidism, bipolar disorder, GERD, asthma, was recently discharged after being treated for HHS secondary to noncompliance, was admitted for increasing confusion, poor appetite, lethargy and incoherent speech. Clinically she has been improving. She was put on Levemir 12 units twice a day, Novolog coverage before meals and Novolog coverage at bedtime. Her FSGs were 98, 144, 236, 213 and 129. Plan: continue the current insulin regimen for now when she is in the hospital. with regards to the discharge plan for diabetes, I will recommend: --stop Levemir and her current oral antidiabetic medications; --start Novolog 70/30 mix insulin 16 units twice a day-- right before breakfast and right before dinner; ---monitor FSGs x 3 times a day; ---recommend VNS service to assist diabetes management at home. --- f/u in office after discharge. Subjective Subjective: she feels better. Objective Last 24 Hrs of Vital Signs/I&O Vital Signs Date Time Temp Pulse Resp B/P B/P Pulse O2 O2 Flow FiO2 Mean Ox Delivery Rate 10/15 0631 97.3 80 20 160/78 95 Room Air 10/14 2243 98.3 82 20 147/79 97 Room Air 10/14 1527 98.8 89 20 151/78 98 Room Air 10/14 1250 4.0 Intake & Output 10/15 1600 10/15 0800 10/15 0000 Intake Total 250 710 Output Total 300 400 Balance -50 310 Intake, IV 10 10 Intake, Oral 240 700 Number 0 0 Bowel Movements Output, Urine 300 400
--- NOTE | 2017-10-15 12:13 | PN- Psychiatry ---
Assessment/Plan Impression: See my previous consult for details. Alma is a patient known to me from her previous admit. Dr. Alexis had wanted her to decrease her depakote due to metabolic side effects re:uncontrolled DM. She has been taking her insulin and sugars are improved. I spoke with her psychiatrist Dr Hadley from [facility] last admit about tapering her dose but Alma was unable to make the appointment. Depakote level was 120 which is not toxic per se but level probably a peak level instead of trough. Now improved to 80. She was not taking the latuda 2/2 copay per her report. I can obtain no history of hernandez or hypomania from the pt after extensive psychoeducation. She mainly suffers from depressive symptoms. She is currently euthymic. States her mouth movements are not new and she has been seen for this per her report. If it is TD it is doubtfully Latuda as she has not been taking it though depakote can also tremor she is very clear this is not new. Regarding previous antipsychotics I didn't notice it on last admit. States it's worse with nervousness. Of note Cr bumped: states she is a terrible water drinker. FeNA indicates dehydration. HCT neg. Platelets, LFTs wnl. No AVH. Laboratory Tests 10/14 0740 Chemistry Sodium (137 - 145 mmol/L) 144 Potassium (3.5 - 5.1 mmol/L) 4.0 Chloride (98 - 107 mmol/L) 103 Carbon Dioxide (22 - 30 mmol/L) 28 Anion Gap (5 - 16) 12 BUN (7 - 17 mg/dL) 23 H Creatinine (0.5 - 1.0 mg/dL) 1.1 H Estimated GFR (>60 ml/min) 51 L BUN/Creatinine Ratio (7 - 25 %) 20.9 Current Medications Sig/Domo Start time Last Medication Dose Route Stop Time Status Admin Acetaminophen 500 MG Q6P PRN 10/14 1245 AC 10/14 PO 1250 Acetaminophen 650 MG .STK-MED ONE 10/14 1229 DC PO 10/14 1230 Amlodipine Besylate 10 MG DAILY 10/15 1200 AC PO Fenofibrate 145 MG DAILY 10/13 0900 AC 10/15 PO 0823 Heparin Sodium 5,000 UNIT Q8 10/13 0600 AC 10/15 (Porcine) SC 0525 Insulin Aspart 0 TIDAC/HS 10/13 1200 10/14 LA 1638 Insulin Detemir 12 UNITS BID 10/13 2100 AC 10/15 SC 0822 Losartan Potassium 50 MG DAILY 10/15 1215 AC PO Melatonin 5 MG QPM PRN 10/14 2030 AC 10/14 PO 2048 Polyethylene Glycol 17 GM DAILY 10/14 1034 AC 10/15 PO 0823 Senna/Docusate Sodium 2 TAB DAILY 10/14 1034 10/15 PO 0823 MSE: Alma is in bed in a gown remembers me from previous admit. Alert and oriented. She is in good spirits making cute jokes with me. Tremor in jaw, no hand tremor. Speech normal rate and volume. Thought process linear thought content no delusions Si or HI. Glad her sugars are better. Amenable to o/p treatment here. Discussed bipolar disorder at length she does not endorse hernandez or hypomania. Insight and judgment have improved from last admit regarding self- care. A/ 57 y/o F here with mental status change and movement abnormalities. It is possible her *free* depakote level was higher due to ARF and caused some of her symptoms. Though her level was not toxic in and of itself it could be toxic for her as patients become euthymic at differing levels. Depakote excreted in urine and highly protein bound. She needs outpatient psychiatry for diagnostic clarity and further med management. -Would put her depakote to 750 qHS just to cover her until she can see outpatient psych WHEN Cr BACK TO BASELINE -Draw an ammonia; you do not need high LFTs to have hyperammonemia -I gave her psychoed regarding hydration, please reinforce -Can call [phone] for a psych intake here. I was unable to get through X 3. Page with any questions. #100 JScruggsMD #[phone] Suggestion: see imp Subjective Subjective: see imp Objective Last 24 Hrs of Vital Signs/I&O Vital Signs Date Time Temp Pulse Resp B/P B/P Pulse O2 O2 Flow FiO2 Mean Ox Delivery Rate 10/15 1243 96 152/88 10/15 0631 97.3 80 20 160/78 95 Room Air 10/14 2243 98.3 82 20 147/79 97 Room Air 10/14 1527 98.8 89 20 151/78 98 Room Air Intake & Output 10/15 1600 10/15 0800 10/15 0000 Intake Total 250 710 Output Total 300 400 Balance -50 310 Intake, IV 10 10 Intake, Oral 240 700 Number 0 0 Bowel Movements Output, Urine 300 400
[2017-10-15 14:18] VITALS: BP 180/102
[2017-10-15 22:38] VITALS: BP 112/76
[2017-10-16 06:59] VITALS: BP 150/74
[2017-10-16] MEDS ORDERED: DEPAKOTE ER250 M1 PO (07:41)
--- NOTE | 2017-10-16 07:43 | Patient Discharge Instructions ---
Discharge Instructions General Discharge Information You were seen/treated for: acute delirium Special Instructions: 1. please follow up with PCP in one week 2. please follow up with [facility] psych in one week for medication management 3. please return to [facility] or any other outpatient lab for blood chemistry draw in 5-7 days Diet Continue normal diet: Yes Activity Full Activity/No Limits: Yes Acute Coronary Syndrome Inclusion Criteria At DC or during hospital stay patient has or had the following: ACS DIAGNOSIS No Discharge Core Measures Meds if any: Prescribed or Continued at Discharge Meds if any: NOT Prescribed or Continued at Discharge Congestive Heart Failure Inclusion Criteria At DC or during hospital stay patient has or had the following: CHF DIAGNOSIS No Discharge Core Measures Meds if any: Prescribed or Continued at Discharge Meds if any: NOT Prescribed or Continued at Discharge Cerebrovascular accident Inclusion Criteria At DC or during hospital stay patient has or had the following: CVA/TIA Diagnosis No Discharge Core Measures Meds if any: Prescribed or Continued at Discharge Meds if any: NOT Prescribed or Continued at Discharge Venous thromboembolism Inclusion Criteria VTE Diagnosis No VTE Type NONE VTE Confirmed by (Test) NONE Discharge Core Measures - Per Current guidelines, there needs to be overlap - treatment for the first 5 days of Warfarin therapy. - If discharged on Warfarin prior to 5 days of - overlap therapy, the patient will need to be - assessed for post discharge needs including - *Post discharge parental anticoagulation - *Warfarin and/or parental anticoagulation education - *Follow up date to check INR post discharge At least 5 days overlap therapy as Inpatient No Meds if any: Prescribed or Continued at Discharge Note: Overlap Therapy is Warfarin and Anticoagulant Meds if any: NOT Prescribed or Continued at Discharge
[2017-10-16] MEDS ORDERED: NOVOLOG MI100 UNIT/2 SC (08:24)
[2017-10-16 12:59] VITALS: BP 128/78
--- NOTE | 2017-10-16 13:23 | PN- Att Addend ---
Attending Addendum Attending Brief Note Patient seen and examined. This morning she is complaining of right foot pain. Reports pain began suddenly today. Denies any trauma. Denies any similar pain in the past. Denies any history of gout. she is alert and oriented 3 and conversant appropriately. Vital Signs Date Time Temp Pulse Resp B/P B/P Pulse O2 O2 Flow FiO2 Mean Ox Delivery Rate 10/16 1259 98.4 72 20 128/78 97 Room Air 10/16 0926 98 148/70 10/16 0925 98 148/70 10/16 0659 98.3 80 20 150/74 100 Room Air 10/15 2238 97.7 87 20 112/76 99 Room Air 10/15 1729 174/80 10/15 1418 98.2 82 20 180/102 96 Room Air 10/15 1328 86 180/102 General appearance: Well-developed and not in any acute distress. HEENT: Anicteric, no pallor, pupils equal and reactive. Neck: Supple with no jugular venous distention. Heart: S1-S2 regular with no audible murmur. Lungs: Adequate and symmetric air entry bilaterally with no added sounds. Abdomen: Nondistended with normal bowel sounds. Soft, nontender with no palpable masses. Extremities: Right big toe and medial ankle mildly swollen. No erythema. No open area. Tender to touch. Pain with range of motion. No palpable crepitus. Distal pulses palpable. Extremity is not cool to touch. Skin: Intact Laboratory data shows uric acid level at upper limit of normal. Problems: 1. Lower extremity swelling and pain 2. Altered mental status; resolved 3. Insulin-dependent diabetes mellitus. Plan: -Extremity pain and swelling may be due to osteoarthritis. Pain and swelling is currently limiting mobility. Patient states she is unable to walk due to the swelling and pain. Recommend starting patient empirically on colchicine. -Continue current regimen recommended by the psychiatry service. Patient to follow-up in the outpatient service. -Continue insulin regimen as recommended by the endocrinology service. -Anticipate discharge once pain improves and patient is able to safely ambulate. -Blood pressure was elevated yesterday. This is improved after resuming her home dose of her medication regimen.
--- NOTE | 2017-10-16 14:11 | PN- Diabetes ---
Assessment/Plan Diabetes Assessment: 57 yo F with h/o T2DM, HTN, hypothyroidism, bipolar disorder, GERD, asthma, was recently discharged after being treated for HHS secondary to noncompliance, was admitted for increasing confusion, poor appetite, lethargy and incoherent speech. Clinically she has been improving. She was put on Levemir 12 units twice a day, Novolog coverage before meals and Novolog coverage at bedtime. Her FSGs were 129, 204, 178 and 182. Plan: In order to simplify her insulin regimen, I changed basal bolus regimen to Novolog 70/30 mix insulin 16 units twice a day-- right before breakfast and right before dinner. we will continue monitoring her FSGs x 4 times a day. will follow. Subjective Subjective: She feels okay this morning. Objective Last 24 Hrs of Vital Signs/I&O Vital Signs Date Time Temp Pulse Resp B/P B/P Pulse O2 O2 Flow FiO2 Mean Ox Delivery Rate 10/16 1259 98.4 72 20 128/78 97 Room Air 10/16 0926 98 148/70 10/16 0925 98 148/70 10/16 0659 98.3 80 20 150/74 100 Room Air 10/15 2238 97.7 87 20 112/76 99 Room Air 10/15 1729 174/80 10/15 1418 98.2 82 20 180/102 96 Room Air Intake & Output 10/16 1600 10/16 0800 10/16 0000 Intake Total Output Total 100 350 Balance -100 -350 Number 1 Bowel Movements Output, Urine 100 350
--- NOTE | 2017-10-16 14:46 | PN- Housestaff ---
See Addendum Subjective Follow-up For: AMS FAM FOOT PAIN Subjective: Patient seen and examined. Denies confusion, is AOx3. Eating this morning and is ambulating. However noted that she has pain in her left foot on ambulation worse when walking. She states that she has had this pain before and thinks it was exacerbated by "getting tangled up in the blanket". Patient denies any other symptoms. Review of Systems Constitutional: Reports: no symptoms. EENTM: Reports: no symptoms. Cardiovascular: Reports: no symptoms. Respiratory: Reports: no symptoms. Gastrointestinal: Reports: no symptoms. Musculoskeletal: Reports: joint pain. Skin: Reports: no symptoms. Neurological/Psychological: Reports: tremors. Objective Last 24 Hrs of Vital Signs/I&O Vital Signs Date Time Temp Pulse Resp B/P B/P Pulse O2 O2 Flow FiO2 Mean Ox Delivery Rate 10/16 1259 98.4 72 20 128/78 97 Room Air 10/16 0926 98 148/70 10/16 0925 98 148/70 10/16 0659 98.3 80 20 150/74 100 Room Air 10/15 2238 97.7 87 20 112/76 99 Room Air 10/15 1729 174/80 Intake & Output 10/16 1600 10/16 0800 10/16 0000 Intake Total Output Total 100 350 Balance -100 -350 Number 1 Bowel Movements Output, Urine 100 350 Patient 246 lb Weight Physical Exam General Appearance: Alert, Oriented X3, Cooperative, No Acute Distress Skin: No Rashes, No Breakdown, No Significant Lesion HEENT: Atraumatic, PERRLA, EOMI, Mucous Membr. moist/pink Cardiovascular: Regular Rate, Normal S1, Normal S2 Lungs: Clear to Auscultation, Normal Air Movement Abdomen: Normal Bowel Sounds, Soft, No Tenderness Neurological: Normal Speech, Strength at 5/5 X4 Ext, Normal Tone, Sensation Intact, Cranial Nerves 3-12 NL Extremities: No Clubbing, No Cyanosis, Normal Pulses, nodular firmness of the ankle joint with severe pain on palpation. Mild erythema. Vascular: Normal Pulses, Pulses Symmetrical Current Medications: Current Medications Sig/Domo Start time Last Medication Dose Route Stop Time Status Admin Acetaminophen 500 MG Q6P PRN 10/14 1245 AC 10/16 PO 1041 Amlodipine Besylate 10 MG DAILY 10/15 1200 AC 10/16 PO 0926 Colchicine 600 MCG DAILY 10/17 0900 AC PO Colchicine 600 MCG ONCE ONE 10/16 1500 DC PO 10/16 1501 Colchicine 1,200 MCG ONCE ONE 10/16 1000 DC 10/16 PO 10/16 1001 1041 Divalproex Sodium 750 MG QPM 10/15 2100 AC 10/15 PO 2203 Fenofibrate 145 MG DAILY 10/13 0900 AC 10/16 PO 0926 Heparin Sodium 5,000 UNIT Q8 10/13 0600 AC 10/16 (Porcine) SC 1506 Insulin Aspart 0 TIDAC/HS 10/13 1200 DC 10/15 SC 1729 Insulin Aspart Prota 16 UNIT 0800 & 1700 10/16 0900 AC 10/16 70%/Aspart 30% SC 0927 Insulin Detemir 12 UNITS BID 10/13 2100 DC 10/15 SC 2213 Losartan Potassium 50 MG DAILY 10/15 1215 AC 10/16 PO 0925 Melatonin 5 MG QPM PRN 10/14 2030 AC 10/15 PO 2232 Patient Medication 1 ED ONE ONE 10/16 1045 DC 10/16 Teaching ED 10/16 1046 1041 Patient Medication 1 ED ONE ONE 10/15 1830 DC Teaching ED 10/15 1831 Polyethylene Glycol 17 GM DAILY 10/14 1034 AC 10/15 PO 0823 Senna/Docusate Sodium 2 TAB DAILY 10/14 1034 AC 10/16 PO 1041 Sertraline HCl 25 MG DAILY 10/16 1630 AC PO Assessment/Plan Assessment: Ms. Mullen is a 57yo F w/ PMH of type 2 diabetes mellitus, hyperlipidemia, hypothyroidism, GERD, bipolar disorder, osteoarthritis with right knee replacements, presented with altered mental status. Patient was alert and oriented to time/place/birthday during our clinical interaction however she appeared to be in slow speech and occasionally frowning, however denied that she was in pain or any discomfort. Patient was conversational but broken in fluency of words. She remembered that she was not eating her dinner and then the son brought her here. At baseline, son endorsed that patient had some tremor and chronic imbalance in walking, however stated that patient had more slurred speech compared to baseline. During our clinical interaction, patient denied recent travel/sick contacts, fever/lightheadedness/diaphoresis/night sweat/weight change/cough/SOB/Chest Pain /Palpitation/Abdominal pain/bowel movement or urinary abnormality however she was incontinent, or other skin/musculoskeletal/neurological/mood disorders, or dietary/appetite change. On admission, Vitals: Stable, afebrile, BP 126/74, 96% on room air -CBC: W BC 4.5, H/H 11.9/35.7, -BMP: Glucose 138, elevated creatinine 1.6 compared to baseline of 0.8 a month ago, -CXR/head CT: No acute issues -EKG: NSR w/o significant ST-T abnormalities. -Interventions in ER: IV normal saline 1 L bolus, not given due to hard-stick Problem list & Assessment: #Altered mental status #Acute kidney injury secondary to dehydration with creatinine elevation resolved. #Questionable tardive dyskinesia from meds overdose including Latuda/Valporic acid #PMH of type 2 diabetes mellitus, hyperlipidemia, hypothyroidism, GERD, bipolar disorder, osteoarthritis with right knee replacements #lower left leg pain, chronic, with acute flare - potentially gout PLAN: - Admitted to general medicine, vitals per protocol have nutrition see her for diabetic instruction. -Psychiatry saw the patient today for evaluation of current medications. The patient was recently started on Latuda but never in fact took a dose. Continue to hold. She was on depakote on admission. Admission level was on the upper range of normal, however it is noted that this is not a trough level. All other tox was negative. We have restarted her on Depakote 750mcg qhs, a lower dose than previously. On discharge we can send her for a depakote trough level to determine dosing regimen. We have also started her on 25mg Zoloft today for depression. Pertaining to bipolar disease, it does not appear that she actually has manic episodes. Will refer to [facility]. -Formal swallowing evaluation passed for question of the altered mentation and dysarthria, patient will be continued on the consistent carbohydrate to diet -Patient is constipated so bowel regimen has been started -We will start colchicine for patient's potential gout. She has a uric acid level in the upper limit of normal. Evaluate tomorrow and potentially DC. DVT prophylaxis Chem PPX+ ALPS NPO Full Code Problem List: 1. Acute delirium 2. Swelling of foot joint Pain Ratin Pain Location: left lower foot Pain Goal: Pain 4 or less Pain Plan: prn Tomorrow's Labs & Rationales: na
--- NOTE | 2017-10-16 15:57 | Incdntl Nt Psy ---
Incidental Note Notation: I spoke with Alma regarding her medication concerns. She has a better understanding re: need to taper depakote, not starting Latuda. She is amenable to starting zoloft. She is in good spirits. Of note, she complains she can't read anymore and given her history of uncontrolled sugars she would benefit from outpatient ophtho consult. JScruggsMD #[phone]
[2017-10-16 22:06] VITALS: BP 140/80
[2017-10-17 07:36] VITALS: BP 145/77
[2017-10-17] MEDS ORDERED: COLCHICINE0.6 M2 PO ×2 (08:00→15:31)
[2017-10-17] MEDS ORDERED: SERTRALINE HCL25 MG PO ×2 (08:00→15:31)
[2017-10-17] MEDS ORDERED: NOVOLOG MI100 UNIT/2 SC (08:31)
--- NOTE | 2017-10-17 08:51 | PN- Diabetes ---
Assessment/Plan Diabetes Assessment: 57 yo F with h/o T2DM, HTN, hypothyroidism, bipolar disorder, GERD, asthma, was recently discharged after being treated for HHS secondary to noncompliance, was admitted for increasing confusion, poor appetite, lethargy and incoherent speech. Clinically she has been improving. She was put on Levemir 12 units twice a day, Novolog coverage before meals and Novolog coverage at bedtime. In order to simplify her insulin regimen, I changed basal bolus regimen to Novolog 70/30 mix insulin 16 units twice a day-- right before breakfast and right before dinner on 10/16/2017. Her FSGs were 182, 270, 229, 233 and 168. Plan: increase Novolog 70/30 mix to 20 units twice a day before breakfast and before dinner; continue monitoring FSGs; if she is medically stable for discharge, the discharge plan for DM will be ---Novolog 70/30 mix 20 units twice a day before breakfast and before dinner; ---discontinue all her previous antidiabetic medications; ---check FSGs x 3-4 times a day ---f/u in office after discharge. Subjective Subjective: Her glucose levels are not controlled yet. Objective Last 24 Hrs of Vital Signs/I&O Vital Signs Date Time Temp Pulse Resp B/P B/P Pulse O2 O2 Flow FiO2 Mean Ox Delivery Rate 10/17 0736 98.8 88 18 145/77 96 Room Air 10/16 2206 99.1 94 20 140/80 97 Room Air 10/16 1259 98.4 72 20 128/78 97 Room Air 10/16 0926 98 148/70 10/16 0925 98 148/70 Intake & Output 10/17 1600 10/17 0800 10/17 0000 Intake Total Output Total 250 Balance -250 Output, Urine 250
[2017-10-17] MEDS ORDERED: AMLODIPINE-OLM1 EAC1 PO ×2 (11:42→15:31)
[2017-10-17] MEDS ORDERED: IBUPROFEN400 M1 PO ×2 (11:48→15:31)
--- NOTE | 2017-10-17 11:50 | PN- Housestaff ---
Krystina LI,Rosy 10/17/17 1150: Subjective Follow-up For: AMS FAM FOOT PAIN Subjective: Patient feeling good today. Foot continues to be painful. Ambulating ok. No other complaints. Review of Systems Constitutional: Reports: no symptoms. EENTM: Reports: no symptoms. Respiratory: Reports: no symptoms. Gastrointestinal: Reports: no symptoms. Genitourinary: Reports: no symptoms. Musculoskeletal: Reports: joint pain. Neurological/Psychological: Reports: no symptoms. Objective Last 24 Hrs of Vital Signs/I&O Vital Signs Date Time Temp Pulse Resp B/P B/P Pulse O2 O2 Flow FiO2 Mean Ox Delivery Rate 10/17 1338 99.1 90 20 142/68 96 Room Air 10/17 1017 88 145/77 10/17 1017 88 145/77 10/17 0736 98.8 88 18 145/77 96 Room Air 10/16 2206 99.1 94 20 140/80 97 Room Air Intake & Output 10/17 1600 10/17 0800 10/17 0000 Intake Total Output Total 250 Balance -250 Output, Urine 250 Physical Exam General Appearance: Alert, Oriented X3, Cooperative, No Acute Distress Cardiovascular: Regular Rate, Normal S1, Normal S2, No Murmurs Lungs: Clear to Auscultation, Normal Air Movement Abdomen: Normal Bowel Sounds, Soft, No Tenderness, No Hepatospenomegaly, No Masses Extremities: No Clubbing, No Cyanosis, No Edema, tenderness on palpation on both sides of the foot and on movement. nodular swelling. Current Medications: Current Medications Sig/Domo Start time Last Medication Dose Route Stop Time Status Admin Acetaminophen 500 MG Q6P PRN 10/14 1245 DCD 10/17 PO 1021 Amlodipine Besylate 10 MG DAILY 10/15 1200 DCD 10/17 PO 1017 Colchicine 600 MCG DAILY 10/17 0900 DCD 10/17 PO 1017 Divalproex Sodium 750 MG QPM 10/15 2100 DCD 10/16 PO 2054 Fenofibrate 145 MG DAILY 10/13 0900 DCD 10/17 PO 1017 Heparin Sodium 5,000 UNIT Q8 10/13 0600 DCD 10/17 (Porcine) SC 1358 Insulin Aspart Prota 20 UNIT 0800 & 1700 10/17 1700 DCD 70%/Aspart 30% SC Insulin Aspart Prota 16 UNIT 0800 & 1700 10/16 0900 DC 10/16 70%/Aspart 30% SC 1754 Losartan Potassium 50 MG DAILY 10/15 1215 DCD 10/17 PO 1017 Melatonin 5 MG .STK-MED ONE 10/17 0248 DC PO 10/17 0249 Melatonin 5 MG QPM PRN 10/14 2030 DCD 10/17 PO 0249 Polyethylene Glycol 17 GM DAILY 10/14 1034 DCD 10/15 PO 0823 Senna/Docusate Sodium 2 TAB DAILY 10/14 1034 DCD 10/16 PO 1041 Sertraline HCl 25 MG DAILY 10/16 1630 DCD 10/17 PO 1017 Assessment/Plan Assessment: Ms. Mullen is a 57yo F w/ PMH of type 2 diabetes mellitus, hyperlipidemia, hypothyroidism, GERD, bipolar disorder, osteoarthritis with right knee replacements, presented with altered mental status. Patient was alert and oriented to time/place/birthday during our clinical interaction however she appeared to be in slow speech and occasionally frowning, however denied that she was in pain or any discomfort. Patient was conversational but broken in fluency of words. She remembered that she was not eating her dinner and then the son brought her here. At baseline, son endorsed that patient had some tremor and chronic imbalance in walking, however stated that patient had more slurred speech compared to baseline. During our clinical interaction, patient denied recent travel/sick contacts, fever/lightheadedness/diaphoresis/night sweat/weight change/cough/SOB/Chest Pain /Palpitation/Abdominal pain/bowel movement or urinary abnormality however she was incontinent, or other skin/musculoskeletal/neurological/mood disorders, or dietary/appetite change. On admission, Vitals: Stable, afebrile, BP 126/74, 96% on room air -CBC: W BC 4.5, H/H 11.9/35.7, -BMP: Glucose 138, elevated creatinine 1.6 compared to baseline of 0.8 a month ago, -CXR/head CT: No acute issues -EKG: NSR w/o significant ST-T abnormalities. -Interventions in ER: IV normal saline 1 L bolus, not given due to hard-stick Problem list & Assessment: #Altered mental status #Acute kidney injury secondary to dehydration with creatinine elevation resolved. #Questionable tardive dyskinesia from meds overdose including Latuda/Valporic acid #PMH of type 2 diabetes mellitus, hyperlipidemia, hypothyroidism, GERD, bipolar disorder, osteoarthritis with right knee replacements #lower left leg pain, chronic, with acute flare - potentially gout PLAN: - Admitted to general medicine, vitals per protocol While here we had nutrition see her for diabetic instruction. -Psychiatry saw the patient today for evaluation of current medications. The patient was recently started on Latuda but never in fact took a dose. Continue to hold. She was on depakote on admission. Admission level was on the upper range of normal, however it is noted that this is not a trough level. All other tox was negative. We have restarted her on Depakote 750mcg qhs, a lower dose than previously. We have also started her on 25mg Zoloft today for depression. Pertaining to bipolar disease, it does not appear that she actually has manic episodes. Will refer to [facility]. -Formal swallowing evaluation passed for question of the altered mentation and dysarthria, patient will be continued on the consistent carbohydrate to diet -Patient is constipated so bowel regimen has been started -We will continue colchicine for patient's potential gout and add ibuprofen for discharge. She has a uric acid level in the upper limit of normal. DVT prophylaxis Chem PPX+ ALPS NPO Full Code Problem List: 1. Swelling of foot joint 2. Acute delirium Pain Ratin Pain Location: right foot bilaterally Pain Goal: Remain pain free Pain Plan: prn Tomorrow's Labs & Rationales: none Summer LI,Jamia 10/17/17 1455: Attending MD Review Statement Attending Statement Attending MD Statement: examined this patient, discuss w/resident/PA/RESOURCE RECOVERY ENGINEER, agreed w/resident/PA/RESOURCE RECOVERY ENGINEER, reviewed EMR data (avail), discussed with nursing, discussed with case mgmt, amended to note Attending Assessment/Plan: Patient seen and examined. No issues overnight reported by nursing staff. Remains afebrile and hemodynamically stable. Resting comfortably and not in any acute distress. She reports some improvement of her foot pain this morning. She however was very reluctant to get up on be mobilized. She was willing to be evaluated by the physical therapy service. Physical therapy however reports that they did observe the patient ambulates around the room yesterday without need for significant assistance. She was able to get up today and mobilized and feels comfortable going home. On examination she has a small area of erythema around the medial ankle and the base of the big toe. It remains tender to touch. 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 Recommend continuation of colchicine. Recommend addition of NSAID therapy with ibuprofen. Patient has been advised that symptoms should improve within the next few days. Recommend upon discharge the patient should continue on a combination of olmesartan and amlodipine alone and not utilize hydrochlorothiazide as this will only aggravate her gouty arthropathy. This was discussed with the patient and she verbalized understanding.
[2017-10-17 13:38] VITALS: BP 142/68
[2017-10-17] MEDS ORDERED: DEPAKOTE ER250 M1 PO (15:31)
[2017-10-17] MEDS ORDERED: TRIBENZOR 40-11 EAC1 PO (16:38)
[2017-10-17] MEDS ORDERED: NOVOLOG MI100 UNIT/1 SC (16:58)
== END 2017-10-17 17:00 | disposition home health service (06) | DRG 683 ==
LOC: ERH 20:04 → 2NB 22:49 → ERHI 22:49 → ENRESERV 23:40 → 2NB 10-13 00:54 → ENPENDDIS 10-17 15:38 → ENTRNSPT 10-17 16:48 → EDTRNSPT 10-17 16:58 → EDTRNSPTSTS 10-17 16:58 → 2NB 10-17 17:00 → CMPTRNSPT 10-17 17:11
PROVIDERS: Emergency Medicine; Internal Medicine Endocrinology, Diabetes & Metabolism
DX: N17.9 Acute kidney failure, unspecified (principal); F05 Delirium due to known physiological condition; Z68.41 Body mass index [BMI] 40.0-44.9, adult; E11.8 Type 2 diabetes mellitus with unspecified complications; I10 Essential (primary) hypertension; K21.9 Gastro-esophageal reflux disease without esophagitis; E03.9 Hypothyroidism, unspecified; F31.9 Bipolar disorder, unspecified; E86.0 Dehydration; G24.01 Drug induced subacute dyskinesia; T42.6X5A Adverse effect of other antiepileptic and sedative-hypnotic drugs, initial encounter; Z79.4 Long term (current) use of insulin; Z79.84 Long term (current) use of oral hypoglycemic drugs; T50.995A Adverse effect of other drugs, medicaments and biological substances, initial encounter; E66.01 Morbid (severe) obesity due to excess calories; M19.90 Unspecified osteoarthritis, unspecified site; M10.471 Other secondary gout, right ankle and foot; Z96.653 Presence of artificial knee joint, bilateral; Z88.0 Allergy status to penicillin; Z88.8 Allergy status to other drugs, medicaments and biological substances; Z91.14 Patient's other noncompliance with medication regimen; J45.909 Unspecified asthma, uncomplicated
CPT/HCPCS: 2NBSP; 84133; 84300; ERO; 36415; 71045; 80307; 81003; 82436; 82570; 93005; 93010; G0480; J1644